=== PATIENT | female | born 1970 | race Caucasian/White ===

== ENCOUNTER → 2017-01-29 | Outpatient (POV) | payer MEDICARE, MEDICAID, SELFPAY | PROVIDERS: Visit Provider Internal Medicine | DX: Y99.9 Unspecified external cause status (principal) | CPT/HCPCS: 93005 ==

== ENCOUNTER → 2017-12-09 08:35 | Outpatient (CLI) | payer MEDICARE, MEDICAID, SELFPAY | PROVIDERS: PCP Emergency Medicine; Visit Provider Emergency Medicine | DX: Z12.31 Encounter for screening mammogram for malignant neoplasm of breast (principal) ==

== ENCOUNTER → 2018-09-09 10:25 | Outpatient (POV) | payer MEDICARE, MEDICAID, SELFPAY ==
[2018-09-09 10:32] VITALS: BP 125/80; PULSE 80; RESP 20; O2SAT 98
--- NOTE | 2018-09-09 13:07 | HMH.PMCON ---
Assessment and Plan (1) Chronic pain syndrome Current visit: Yes Status: Chronic Category: Medical Code(s): G89.4 - Chronic pain syndrome (2) Contracture of muscle, unspecified site Current visit: No Status: Chronic Qualifiers: Muscle contracture area: multiple sites Qualified Code(s): M62.49 - Contracture of muscle, multiple sites Category: Medical Code(s): M62.40 - Contracture of muscle, unspecified site - Assessment and plan all Dx Assessment and Plan for all problems:: After discussing this case with Dr. Roldan he and I both agreed that patient should be tried potentially on extended release morphine along with morphine immediate release for breakthrough pain. Patient may want to be started on a morphine extended release dose of 15 mg in the morning and 15 mg at night while discontinuing the fentanyl patch and hydrocodone and then utilizing morphine 10 mg immediate release up to 3 times a day. I will see the patient back in 1 month and reassess her symptoms at that time. This note was dictated using voice recognition software and may contain errors or omissions HPI - Data of Consult Consult date: 09/09/18 Requesting Physician: Brit Mahmood APRN Primary Care Provider: Rafael Goldberg MD Family Provider: Hitesh Andino APRN - Consult Narrative Reason for consult: Overall generalized pain History of present illness: Ms. Lo is a 48 year old female who presents today for consultation in regards to her overall generalized pain. Patient has a history of moyamoya disorder along with MS. Patient is wheelchair-bound. She has difficulty with transfers referring on along with doing any functional activity. She is currently on fentanyl 25 mcg/h patch every 72 hours and [place] 5. Patient states that it does not help control her pain. Rating her pain today a 10 out of 10. CC: Brit Mahmood APRN [facility] History I have reviewed the patient's past medical history: Yes Medical History: Reports:: Hyperlipidemia, Hypertension Other Medical History: Reports: Arthritis Other Surgeries: Yes: Hysterectomy-Total - *Social History Smoking Status: Unknown if ever smoked Alcohol Intake: never Occupational Status: disabled Housing: detention - Psychiatric History Expresses thoughts of harming self/others: None Suicide Plan Description: No Plan *Family Hx:: Unable to obtain Review of Systems - Review of Systems ROS General: no recent weight change, no fever, difficulty sleeping Respiratory: no cough, no shortness of air Cardiovascular/Peripheral Vascular: No chest pain, No palpitations, no edema, no shortness of breath. Musculoskeletal: Overall pain, joint pain Psychiatric: Frustrated Neurological: Weakness in all 4 extremities, unable to ambulate Meds Home Medications Medication Instructions Recorded Confirmed Type acetaminophen 500 mg capsule 500 mg PO Q6H PRN 11/20/17 History ascorbic acid (vitamin C) 1,000 mg 2 g PO DAILY tab 11/20/17 History tablet aspirin 81 mg tablet,delayed 81 mg PO DAILY tab 11/20/17 History release atorvastatin 20 mg tablet 20 mg PO QHS tab 11/20/17 History baclofen 10 mg tablet 10 mg NG-TUBE QID 11/20/17 History carvedilol 12.5 mg tablet 12.5 mg PO BID 11/20/17 History citalopram 10 mg tablet 10 mg PO BID tab 11/20/17 History conjugated estrogens 0.625 mg 0.625 mg PO DAILY tab 11/20/17 History tablet diphenhydramine 25 mg capsule 50 mg PO Q6H PRN cap 11/20/17 History docusate sodium 250 mg capsule 250 mg PO BID cap 11/20/17 History fentanyl 25 mcg/hr transdermal 1 patch TRANSDERMA Q72H 11/20/17 History patch fluticasone 50 mcg/actuation nasal 2 spray INTRANASAL QHS g 11/20/17 History spray,suspension furosemide 40 mg tablet 40 mg PO BID tab 11/20/17 History gabapentin 600 mg tablet 1,200 mg PO TID tab 11/20/17 History hydrocodone 5 mg-acetaminophen 325 1 tab PO Q8H tab 11/20/17 History mg tablet
--- NOTE | 2018-09-09 13:11 | P.CONS_ITS ---
Assessment and Plan (1) Chronic pain syndrome Current visit: Yes Status: Chronic Category: Medical Code(s): G89.4 - Chronic pain syndrome (2) Contracture of muscle, unspecified site Current visit: No Status: Chronic Qualifiers: Muscle contracture area: multiple sites Qualified Code(s): M62.49 - Contracture of muscle, multiple sites Category: Medical Code(s): M62.40 - Contracture of muscle, unspecified site - Assessment and plan all Dx Assessment and Plan for all problems:: After discussing this case with Dr. Roldan he and I both agreed that patient should be tried potentially on extended release morphine along with morphine immediate release for breakthrough pain. Patient may want to be started on a morphine extended release dose of 15 mg in the morning and 15 mg at night while discontinuing the fentanyl patch and hydrocodone and then utilizing morphine 10 mg immediate release up to 3 times a day. I will see the patient back in 1 month and reassess her symptoms at that time. This note was dictated using voice recognition software and may contain errors or omissions HPI - Data of Consult Consult date: 09/09/18 Requesting Physician: Brit Mahmood APRN Primary Care Provider: Rafael Goldberg MD Family Provider: Hitesh Andino APRN - Consult Narrative Reason for consult: Overall generalized pain History of present illness: Ms. Lo is a 48 year old female who presents today for consultation in regards to her overall generalized pain. Patient has a history of moyamoya disorder along with MS. Patient is wheelchair-bound. She has difficulty with transfers referring on along with doing any functional activity. She is currently on fentanyl 25 mcg/h patch every 72 hours and [place] 5. Patient states that it does not help control her pain. Rating her pain today a 10 out of 10. CC: Brit Mahmood APRN [facility] History I have reviewed the patient's past medical history: Yes Medical History: Reports:: Hyperlipidemia, Hypertension Other Medical History: Reports: Arthritis Other Surgeries: Yes: Hysterectomy-Total - *Social History Smoking Status: Unknown if ever smoked Alcohol Intake: never Occupational Status: disabled Housing: [facility] - Psychiatric History Expresses thoughts of harming self/others: None Suicide Plan Description: No Plan *Family Hx:: Unable to obtain Review of Systems - Review of Systems ROS General: no recent weight change, no fever, difficulty sleeping Respiratory: no cough, no shortness of air Cardiovascular/Peripheral Vascular: No chest pain, No palpitations, no edema, no shortness of breath. Musculoskeletal: Overall pain, joint pain Psychiatric: Frustrated Neurological: Weakness in all 4 extremities, unable to ambulate Meds Home Medications Medication Instructions Recorded Confirmed Type acetaminophen 500 mg capsule 500 mg PO Q6H PRN 11/20/17 History ascorbic acid (vitamin C) 1,000 mg 2 g PO DAILY tab 11/20/17 History tablet aspirin 81 mg tablet,delayed 81 mg PO DAILY tab 11/20/17 History release atorvastatin 20 mg tablet 20 mg PO QHS tab 11/20/17 History baclofen 10 mg tablet 10 mg NG-TUBE QID 11/20/17 History carvedilol 12.5 mg tablet 12.5 mg PO BID 11/20/17 History citalopram 10 mg tablet 10 mg PO BID tab 11/20/17 History conjugated estrogens 0.625 mg 0.625 mg PO DAILY tab 11/20/17 History tablet
== END ==
PROVIDERS: PCP Emergency Medicine; Visit Provider Clinical Nurse Specialist Family Health
DX: G89.4 Chronic pain syndrome (principal); M62.49 Contracture of muscle, multiple sites
CPT/HCPCS: 99202

== ENCOUNTER → 2018-10-06 08:54 | Outpatient (POV) | payer MEDICARE, MEDICAID, SELFPAY ==
[2018-10-06 09:06] VITALS: BP 116/88; PULSE 70; RESP 18; O2SAT 98; BMI 24.4
--- NOTE | 2018-10-06 09:25 | HMH.PAINSOAP ---
[facility] Pain Management SOAP Note Subjective:: Patient is a pleasant 48-year-old female who presents today for follow-up. Patient is still on her fentanyl 25 mcg patch every 72 hours and [place] 5 mg. Patient has a history of moyamoya disorder along with MS. Patient is wheelchair-bound she rates her pain today a 10 out of 10. ROS General: Drowsy Respiratory: no cough, no shortness of air Cardiovascular/Peripheral Vascular: No chest pain, No palpitations, no edema, no shortness of breath. Musculoskeletal: Generalized pain Psychiatric: Frustrated Neurological: Weakness in all 4 extremities, unable to ambulate Objective:: Physical Exam General: Alert and oriented x3, no acute distress, pleasant and cooperative, [on room air] Lungs: Resps E/U Musculoskeletal: Flexion and extension and range of motion extremely limited unable to walk utilizes wheelchair for mobility Neurological: Speech mumbled Assessment:: Chronic pain syndrome, contracture of muscles Plan:: After discussing this case with Dr. Roldan and Saad Andino APRN. We all discussed and agreed on trying the patient on morphine extended release 15 mg in the morning and 15 mg at night while discontinuing the fentanyl patch and hydrocodone and then utilizing morphine 10 mg immediate release up to 3 times a day as needed I will see the patient back in 1 month and reassess her symptoms at that time. This note was dictated using voice recognition software and may contain errors or omissions
--- NOTE | 2018-10-06 09:28 | P.CONS_ITS ---
[facility] Pain Management SOAP Note Subjective:: Patient is a pleasant 48-year-old female who presents today for follow-up. Patient is still on her fentanyl 25 mcg patch every 72 hours and [place] 5 mg. Patient has a history of moyamoya disorder along with MS. Patient is wheelchair-bound she rates her pain today a 10 out of 10. ROS General: Drowsy Respiratory: no cough, no shortness of air Cardiovascular/Peripheral Vascular: No chest pain, No palpitations, no edema, no shortness of breath. Musculoskeletal: Generalized pain Psychiatric: Frustrated Neurological: Weakness in all 4 extremities, unable to ambulate Objective:: Physical Exam General: Alert and oriented x3, no acute distress, pleasant and cooperative, [on room air] Lungs: Resps E/U Musculoskeletal: Flexion and extension and range of motion extremely limited unable to walk utilizes wheelchair for mobility Neurological: Speech mumbled Assessment:: Chronic pain syndrome, contracture of muscles Plan:: After discussing this case with Dr. Roldan and Saad Andino APRN. We all discussed and agreed on trying the patient on morphine extended release 15 mg in the morning and 15 mg at night while discontinuing the fentanyl patch and hydrocodone and then utilizing morphine 10 mg immediate release up to 3 times a day as needed I will see the patient back in 1 month and reassess her symptoms at that time. This note was dictated using voice recognition software and may contain errors or omissions
== END ==
PROVIDERS: PCP Emergency Medicine; Visit Provider Clinical Nurse Specialist Family Health
DX: G89.4 Chronic pain syndrome (principal); M62.40 Contracture of muscle, unspecified site
CPT/HCPCS: 99213

== ENCOUNTER → 2018-11-03 08:47 | Outpatient (POV) | payer MEDICARE, MEDICAID, SELFPAY ==
[2018-11-03 09:11] VITALS: BP 114/69; PULSE 65; RESP 18; O2SAT 98; BMI 20.1
--- NOTE | 2018-11-03 09:27 | HMH.PAINSOAP ---
[facility] Pain Management SOAP Note Subjective:: Patient is a pleasant 48-year-old white female who presents today for follow-up. Patient has been on her morphine extended release 15 mg 1 p.o. twice daily and morphine immediate release 10 mg 1 p.o. 3 times daily as needed. Patient states that her pain an 8 out of 10. She states that it hurts all of the time all over. Patient does seem more alert today. ROS General: no recent weight change, no fever, no sleep disturbances Respiratory: no cough, no shortness of air Cardiovascular/Peripheral Vascular: No chest pain, No palpitations, no edema, no shortness of breath. Musculoskeletal: Generalized pain Psychiatric: normal mood/ affect Neurological: Weakness in all 4 extremities, unable to ambulate Objective:: Physical Exam General: Alert and oriented x3, no acute distress, pleasant and cooperative, [on room air] Lungs: Resps E/U Eyes: PERRL Musculoskeletal: Flexion and extension and range of motion extremely limited unable to walk, utilizes wheelchair for mobility Neurological: speech mumbled Assessment:: Chronic pain syndrome, contracture of muscles Plan:: My recommendation would be to try her on morphine extended release 15 mg in morning and 30 mg at nighttime and also making her immediate release a scheduled medication. I will follow-up the patient in 8 weeks and reassess her at that time. Dr. Roldan has reviewed this note and agrees with this plan of care. This note was dictated using voice recognition software and may contain errors or omissions
== END ==
PROVIDERS: PCP Emergency Medicine; Visit Provider Clinical Nurse Specialist Family Health
DX: G89.4 Chronic pain syndrome; M62.40 Contracture of muscle, unspecified site
CPT/HCPCS: 99213

== ENCOUNTER → 2018-12-29 08:55 | Outpatient (POV) | payer MEDICARE, MEDICAID, SELFPAY ==
[2018-12-29 09:08] VITALS: BP 135/84; PULSE 65; RESP 18; O2SAT 98; BMI 19.5
--- NOTE | 2018-12-29 09:26 | HMH.PAINSOAP ---
[facility] Pain Management SOAP Note Subjective:: Patient is a pleasant 48-year-old white female who presents today for follow-up. She has been on morphine extended release 15 mg 1 p.o. in the morning and 30 mg extended release in the evening. She is also been on morphine 10 mg 3 times daily. Patient rates her pain a 10 out of 10 today. However she states that it has been better since she started this new regimen. Patient is completing physical therapy daily. ROS General: no recent weight change, no fever, unable to sleep Respiratory: no cough, no shortness of air, no recurring pulmonary infections Cardiovascular/Peripheral Vascular: No chest pain, No palpitations, no edema, no shortness of breath. Gastrointestinal: no new incontinence Genitourinary: no new incontinence Musculoskeletal: Generalized pain Psychiatric: normal mood/ affect, Neurological: Weakness in all 4 extremities, unable to ambulate Objective:: Physical Exam General: Alert and oriented x3, no acute distress, pleasant and cooperative, [on room air] Lungs: Resps E/U, Symmetrical chest expansion, Musculoskeletal: Flexion and extension of thoracic and lumbar spine somewhat guarded secondary to pain, strength in upper and lower extremities [3/5], unable to ambulate Neurological: speech mumbled Assessment:: Chronic pain syndrome, contracture of muscles Plan:: My recommendation would be to increase the morphine extended release 30 mg twice daily and morphine 10 mg 1 p.o. 3 times daily. If the patient is not getting any more relief from this she may be a candidate for intrathecal therapy. I will follow-up with her in 2 months reassess her symptoms at that time. Dr. Roldan has reviewed this note and agrees with this plan of care. This note was dictated using voice recognition software and may contain errors or omissions
== END ==
PROVIDERS: PCP Emergency Medicine; Visit Provider Clinical Nurse Specialist Family Health
DX: G89.4 Chronic pain syndrome (principal); M62.40 Contracture of muscle, unspecified site
CPT/HCPCS: 99212

== ENCOUNTER → 2019-03-02 10:10 | Outpatient (POV) | payer MEDICARE, MEDICAID, SELFPAY ==
[2019-03-02 10:21] VITALS: BP 129/90; PULSE 64; RESP 18; O2SAT 98; BMI 18.8
--- NOTE | 2019-03-02 10:39 | HMH.PAINSOAP ---
[facility] Pain Management SOAP Note Subjective:: Patient is a 48-year-old white female who presents today for follow-up. She does ask for recommendations on her oral medication regimen. Is a [facility] resident, with a past medical history of sclerosis and moyamoya syndrome. The patient has been taking morphine extended release 30 mg 1 p.o. in the morning and 30 mg extended release in the evening. She has also been taking morphine 15 mg p.o. 3 times daily. She does report that this has not been working, and rates her pain a 10 out of 10 today. The patient says that the medication is not relieved the pain even for short period. She does have a physical therapy regimen daily. ROS General: no recent weight change, no fever, no sleep disturbances Respiratory: no cough, no shortness of air, no recurring pulmonary infections Cardiovascular/Peripheral Vascular: No chest pain, No palpitations, no edema, no shortness of breath. Gastrointestinal: no incontinence, normal bowel movements reported Genitourinary: no incontinence Musculoskeletal: generalized pain Psychiatric: normal mood/ affect, [denies depression], [denies anxiety] Neurological: [denies weakness in extremities], [denies balance issues] Objective:: Physical Exam General: Alert and oriented x3, no acute distress, pleasant and cooperative, [on room air] Lungs: Resps E/U, Symmetrical chest expansion, Eyes: PERRL Musculoskeletal: Flexion and extension of lumbar spine somewhat guarded secondary to pain, deep tendon reflexes normal, strength in upper extremities [5/5], unable to ambulate Neurological: speech clear, 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 I would also recommend that she stop the morphine extended release 30 mg p.o. twice daily and morphine immediate release 15 mg 1 p.o. 3 times daily today. The patient may benefit from Dilaudid 8 mg p.o. 4 times daily. We will see the patient back the office in 1 month and perform the genetic testing at that time. She has been instructed to call the office if she has any issues prior to that time. She has also been instructed to have her primary care team call the office if they have any questions or concerns. Dr. Roldan has reviewed this note and agrees with this plan of care. This note was dictated using voice recognition software and may contain errors or omissions
--- NOTE | 2019-03-02 10:42 | P.CONS_ITS ---
[facility] Pain Management SOAP Note Subjective:: Patient is a 48-year-old white female who presents today for follow-up. She does ask for recommendations on her oral medication regimen. Is a residential resident, with a past medical history of sclerosis and moyamoya syndrome. The patient has been taking morphine extended release 30 mg 1 p.o. in the morning and 30 mg extended release in the evening. She has also been taking morphine 15 mg p.o. 3 times daily. She does report that this has not been working, and rates her pain a 10 out of 10 today. The patient says that the medication is not relieved the pain even for short period. She does have a physical therapy regimen daily. ROS General: no recent weight change, no fever, no sleep disturbances Respiratory: no cough, no shortness of air, no recurring pulmonary infections Cardiovascular/Peripheral Vascular: No chest pain, No palpitations, no edema, no shortness of breath. Gastrointestinal: no incontinence, normal bowel movements reported Genitourinary: no incontinence Musculoskeletal: generalized pain Psychiatric: normal mood/ affect, [denies depression], [denies anxiety] Neurological: [denies weakness in extremities], [denies balance issues] Objective:: Physical Exam General: Alert and oriented x3, no acute distress, pleasant and cooperative, [on room air] Lungs: Resps E/U, Symmetrical chest expansion, Eyes: PERRL Musculoskeletal: Flexion and extension of lumbar spine somewhat guarded secondary to pain, deep tendon reflexes normal, strength in upper extremities [5/5], unable to ambulate Neurological: speech clear, statistical developer 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 I would also recommend that she stop the morphine extended release 30 mg p.o. twice daily and morphine immediate release 15 mg 1 p.o. 3 times daily today. The patient may benefit from Dilaudid 8 mg p.o. 4 times daily. We will see the patient back the office in 1 month and perform the genetic testing at that time. She has been instructed to call the office if she has any issues prior to that time. She has also been instructed to have her primary care team call the office if they have any questions or concerns. Dr. Roldan has reviewed this note and agrees with this plan of care. This note was dictated using voice recognition software and may contain errors or omissions
== END ==
PROVIDERS: PCP Emergency Medicine; Visit Provider Clinical Nurse Specialist Family Health
DX: G89.4 Chronic pain syndrome (principal); M62.40 Contracture of muscle, unspecified site
CPT/HCPCS: 99212

== ENCOUNTER → 2019-03-31 08:44 | Outpatient (POV) | payer MEDICARE, MEDICAID, SELFPAY ==
[2019-03-31 09:03] VITALS: BP 124/82; PULSE 61; RESP 18; O2SAT 98; BMI 20.1
--- NOTE | 2019-03-31 09:14 | P.CONS_ITS ---
[facility] Pain Management SOAP Note Subjective:: Patient is a pleasant 48-year-old white female who presents today for follow-up. She is a patient for which we provide recommendations on her oral medication regimen. She has a past medical history of sclerosis and moyamoya syndrome. At her last visit, the patient reported that her pain was a 10 out of 10 and we did make recommendations at that time for change in her medication regimen. Today, she rates her pain a 10 out of 10. Her medications were not changed after last visit. Her PCP is awaiting genetic testing results prior to making any more changes to her oral medication regimen. The patient is currently on morphine extended release 30 mg 1 p.o. in the morning and 30 mg extended release 1 p.o. in the evening. She is also been taking morphine 50 mg 1 p.o. 3 times daily. Review of Systems General: No recent weight changes, no fever, no sleep disturbances Respiratory: No cough, no shortness of air, no recurring pulmonary infections Cardiovascular/peripheral vascular: No chest pain, no palpitations, no edema, no shortness of breath Gastrointestinal: No new onset incontinence, normal bowel movements reported Genitourinary: No new onset incontinence Musculoskeletal: Back pain Psychiatric: Normal mood/affect Neurological: [Denies weakness in extremities], [denies balance issues] Objective:: Physical exam General: Alert and oriented x3, no acute distress, pleasant and cooperative, [on room air] Lungs: Respirations even and unlabored, symmetrical chest expansion Eyes: PERRL Musculoskeletal: Flexion and extension of lumbar spine somewhat guarded secondary to pain, deep tendon reflexes normal, strength in upper and lower extremities [5/5], ataxic gait noted Neurological: Speech clear, 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 Since no changes will be made until testing is complete, we will see the patient back once we receive the results of the testing. We are currently working on getting genetic testing for the patient. We will call the nursing facility when the patient is able to receive the test. She has been instructed to call the office if she has any concerns prior to her next appointment. Dr. Roldan has reviewed this note and agrees with this plan of care. This note was dictated using voice recognition software and make contain errors or omissions.
--- NOTE | 2019-04-29 10:30 | PC.NURSE ---
[facility] CALLED TO CANCEL ALL OF PATIENT'S FUTURE APPOINTMENTS
== END ==
PROVIDERS: PCP Emergency Medicine; Visit Provider Clinical Nurse Specialist Family Health
DX: G89.4 Chronic pain syndrome (principal); M62.40 Contracture of muscle, unspecified site
CPT/HCPCS: 99212

== ENCOUNTER → 2019-07-18 06:43 | Outpatient (REF) | payer OTHER, MEDICARE, MEDICAID, SELFPAY | LOC: LAB 06:43 | PROVIDERS: Visit Provider Emergency Medicine | DX: L89.613 Pressure ulcer of right heel, stage 3 (principal) | CPT/HCPCS: 87070; 87077; 87186; 87205 ==

== ENCOUNTER 2020-09-27 11:17 | Emergency (ER) | payer MEDICARE, MEDICAID, SELFPAY ==
[2020-09-27 11:18] VITALS: BP 200/104; PULSE 70; RESP 16; TEMP 36.6; O2SAT 98; BMI 18.0
[2020-09-27 11:41] VITALS: BP 164/98; PULSE 61; RESP 18; O2SAT 97
[2020-09-27 11:59] LABS: Microscopic, Urine URINE MICROSCOPIC (MICROSCOPIC)
[2020-09-27 12:02] LABS: Appearance,Urine Clear (Clear); Color,Urine Yellow (Yellow)
[2020-09-27 12:03] LABS: Bilirubin,Urine Negative (Negative); Blood, Urine Negative (Negative); Glucose,Urine (UA) Negative (Negative); Ketones,Urine Negative (Negative); Leukocyte Esterase,Urine Negative (Negative); Nitrate,Urine Negative (Negative); Protein,Urine Negative (Negative); Urobilinogen,Urine 0.2 EU/dl (0.2)
--- NOTE | 2020-09-27 12:09 | HMH.EDGENADL ---
ED Disposition Clinical Impression: Altered mental status Qualifiers: Altered mental status type: transient alteration of awareness Qualified Code(s): R40.4 - Transient alteration of awareness Disposition: Home, Self-Care Condition on Discharge: Good Additional Instructions: Follow-up with Dr. Goldberg if symptoms recur Referrals: Rafael Goldberg MD [Primary Care Provider] - - Critical Care Critical Care Time: No Attestation: On 09/27/20, the high probability of a clinically significant, sudden or life threatening deterioration of the following system(s) required my full and direct attention, intervention and personal management. The time I documented below is in addition to time spent performing reported procedures but includes the following listed in this critical care notation. Medical Decision Making - Medical Records Medical records reviewed: Yes: I reviewed the patient's medical records. MR Comment: Lab results from [facility] obtained and reviewed, unremarkable - Marcellus Inquiry Pt receiving controlled substance: No Vital Signs: 09/27/20 11:18 09/27/20 11:41 09/27/20 12:18 Temperature 98 F 98.3 F Temperature Source Axillary Oral Pulse Rate [Radial] 70 61 Respiratory Rate 16 18 Blood Pressure [Right Arm] 200/104 H 164/98 H Blood Pressure Mean [Right Arm] 136 120 Blood Pressure Source [Right Arm] Automatic Cuff Blood Pressure Position [Right Arm] Sitting Supine 02 Sat by Pulse Oximetry 98 97 Oxygen Delivery Method Room Air 09/27/20 13:56 09/27/20 13:57 Temperature Temperature Source Pulse Rate [Radial] 65 Respiratory Rate 18 Blood Pressure [Right Arm] 149/102 H Blood Pressure Mean [Right Arm] 117 Blood Pressure Source [Right Arm] Automatic Cuff Blood Pressure Position [Right Arm] Supine 02 Sat by Pulse Oximetry 95 Oxygen Delivery Method Room Air Room Air - Lab Data Lab Results 09/27/20 11:55: Urine Color Yellow, Urine Appearance Clear, Urine pH 6.0, Ur Specific [place] 1.020, Urine Protein Negative, Urine Glucose (UA) Negative, Urine Ketones Negative, Urine Blood Negative, Urine Nitrate Negative, Urine Bilirubin Negative, Urine Urobilinogen 0.2, Ur Leukocyte Esterase Negative, Urine WBC 3-5, Ur Squamous Epith Cells 3-5 09/27/20 13:05: WBC 5.0, RBC 4.73, Hgb 14.9, Hct 45.5, MCV 96.2, MCH 31.5 H, MCHC 32.8, RDW 13.5, Plt Count 176, MPV 9.7, Neut % (Auto) 52.6, Lymph % (Auto) 37.8, [place] % (Auto) 6.2, Eos % (Auto) 2.7, Baso % (Auto) 0.8, Neut # (Auto) 2.6, Lymph # (Auto) 1.9, [place] # (Auto) 0.3, Eos # (Auto) 0.1, Baso # (Auto) 0.0 09/27/20 13:05: Sodium 143, Potassium 4.3, Chloride 105, Carbon Dioxide 34 H, Anion Gap 8.3, BUN 11, Creatinine 0.80, Estimated Creat Clear 60, Estimated GFR 75, Est GFR ( Amer) 91, Glucose 71 L, Calcium 9.8, Total Bilirubin 0.5, AST 30, ALT 17, Alkaline Phosphatase 80, Troponin I < 0.01, Total Protein 7.5, Albumin 4.3 09/27/20 13:05: Lactate 1.2 Result diagrams: 09/27/20 13:05 09/27/20 13:05 Orders (Tests/Meds): ORDERS Category Date Time Status XR chest portable Stat Exams 09/27/20 12:17 Taken CMP [Comprehensive Metabolic Panel] Stat Lab 09/27/20 13:05 Results Troponin I Q3H Lab 09/27/20 15:30 Ordered Troponin I Q3H Lab 09/27/20 18:30 Ordered Troponin I Stat Lab 09/27/20 13:05 Results Blood Culture Stat Micro 09/27/20 12:18 Received - Radiology Data #1 Image(s): Chest Image Reviewed: Yes I reviewed the patient's radiology image Atelectasis left base - ECG Data Tracing #1 EKG interpreted by Rudy Henry MD: Rhythm: sinus Rate: 61 [place]: normal Ectopy: none Conduction: normal ST Segment Changes: none T Wave Changes: none Q Waves: none Early R wave progression No evidence of acute ischemia or injury Baseline artifact present, but I consider the EKG adequate for accurate interpretation. No prior EKGs available for comparison. Medical Decision Narrative: Discussed borderline glucose w
--- NOTE | 2020-09-27 12:17 | XR_ITS ---
PROCEDURE: XR CHEST PORTABLE Referring Doctor: Rudy Henry Patient Age:50Y CLINICAL HISTORY: h/o low SaO2 Dyspnea short of breath severely contracted with multiple form is unable to move and COMPARISON: CR CXR CHEST(2 VIEWS-NOT PORTABLE) from 01/15/2017 FINDINGS: Difficult to position patient but because of this the study is limited however the right lung appears well expanded and clear with nothing acute At the left chest there is linear scarring and atelectasis at the left base with slight elevation left hemidiaphragm similar to 2017 CXR. Generous gas is seen within bowel loops beneath the diaphragm particularly noting generous gas throughout the colon and splenic flexure but this may contribute to elevation left hemidiaphragm The heart is normal size with christi and mediastinal structures unremarkable. On final review I would note some accentuation markings left infrahilar region of most likely reflecting some atelectasis and scarring. However difficult to exclude early infiltrate totally. May require follow-up imaging with CT or follow-up CXR if symptoms progress IMPRESSION: Overall fairly stable appearing chest with nothing definitely acute We again see linear scarring and atelectasis at left base similar to 2017. On final review note some slight crowding markings left infrahilar region which most likely reflects atelectasis and technique but difficult to totally exclude early infiltrate. If symptoms progress consider follow-up Dictated by: Agustin Valdivia MD 09/27/2020 17:13 Agustin Valdivia MD in [place] 09/27/2020 17:13
[2020-09-27 12:18] VITALS: TEMP 36.8
--- NOTE | 2020-09-27 12:23 | ECG_ITS ---
APPROVED REPORT Exam: Resting ECG HR:61 bpm ECG Measurements Heart Rate 61 AXES CO 134 P 71 QRSd 70 QRS 31 QT 434 T 10 QTc 436 Conclusion Undetermined rhythm Nonspecific ST and T wave abnormality Abnormal ECG Electronically signed by : Pio Carroll, 09/27/2020 19:52:00
[2020-09-27 13:16] LABS: Basophils % 0.8 % (0.1-2.0); Eosinophils # 0.1 K/mm3 (0.0-0.4); Eosinophils % 2.7 % (0.1-12.0); Hematocrit 45.5 % (37.0-47.0); Hemoglobin 14.9 g/dL (12.2-16.2); Lymphocytes # 1.9 K/mm3 (0.7-4.5); Lymphocytes % 37.8 % (10-50); Mean Corpuscular HGB Conc 32.8 g/dL (31.8-35.4); Mean Corpuscular Hemoglobin 31.5 pg (27.0-31.2); Mean Corpuscular Volume 96.2 fl (81-99); Mean Platelet Volume 9.7 fl (7.4-10.4); Monocytes # 0.3 K/mm3 (0.1-1.0); Monocytes % 6.2 % (1.7-9.3); Neutrophils # 2.6 K/mm3 (1.8-7.8); Neutrophils % 52.6 % (37.0-80.0); Platelet Count 176 K/mm3 (142-424); Red Blood Count 4.73 M/mm3 (4.20-5.40); Red Cell Distribution Width 13.5 % (11.5-17.5)
[2020-09-27 13:26] LABS: Chloride 105 mmol/L (98-107)
[2020-09-27 13:27] LABS: Potassium 4.3 mmoL/L (3.5-5.1); Sodium 143 mmol/L (136-145)
[2020-09-27 13:29] LABS: Alanine Aminotransferase 17 U/L (12-78); Aspartate Amino Transferase 30 U/L (14-36); Blood Urea Nitrogen 11 mg/dl (7-17); Creatinine Clearance Estimated 60 mL/min (50-200); Estimated Glomerular Filt Rate 75 ml/min (>60); GFR (African American) 91 ML/MIN (>60)
[2020-09-27 13:30] LABS: Alkaline Phosphatase 80 U/L (38-126); Anion Gap 8.3 mEq/L (5-15); Bilirubin,Total 0.5 mg/dl (0.2-1.3); Calcium 9.8 mg/dl (8.4-10.2); Carbon Dioxide 34 mmol/L (22.0-30.0); Glucose 71 mg/dl (74-100); Total Protein,Serum 7.5 g/dl (6.3-8.2)
[2020-09-27 13:31] LABS: Lactic Acid 1.2 mmol/L (0.7-2.1)
[2020-09-27 13:46] LABS: Troponin I < 0.01 ng/ml (0.00-0.034)
[2020-09-27 13:56] VITALS: BP 149/102; PULSE 65; RESP 18; O2SAT 95
[2020-09-27 14:01] VITALS: BP 149/99; PULSE 73; RESP 16; TEMP 36.8; O2SAT 98
--- NOTE | 2020-09-27 14:01 | PC.NURSE ---
[facility] notified of patient discharge and need of transport back to skilled nursing.
--- NOTE | 2020-09-27 14:23 | PC.NURSE ---
Still waiting on [facility] for transport
--- NOTE | 2020-09-27 14:50 | PC.NURSE ---
[facility] here to get patient
[2020-09-27 15:03] LABS: Albumin Level 4.3 g/dl (3.5-5.0); Albumin/Globulin Ratio 1.3 (1.1-1.8); Globulin 3.2 g/dL (1.3-3.2)
== END 2020-09-27 14:50 | disposition home or self-care (01) ==
PROVIDERS: Emergency Provider Emergency Medicine; PCP Emergency Medicine
DX: R41.82 Altered mental status, unspecified (principal); R40.4 Transient alteration of awareness; M62.81 Muscle weakness (generalized); G35 Multiple sclerosis; L89.613 Pressure ulcer of right heel, stage 3; I10 Essential (primary) hypertension; Z90.710 Acquired absence of both cervix and uterus; Z79.899 Other long term (current) drug therapy
CPT/HCPCS: 36415; 71045; 80053; 81001; 83605; 84484; 85025; 87040; 93005; 99284

== ENCOUNTER 2020-11-10 20:31 | Emergency (ER) | payer MEDICARE, MEDICAID, SELFPAY ==
--- NOTE | 2020-11-10 | XR_ITS ---
PROCEDURE: XR PELVIS 1-2V CLINICAL INDICATION: Posttraumatic pain COMPARISON: No exams were available for comparison TECHNIQUE: XR Pelvis AP View FINDINGS: No fracture or dislocation is evident. No significant degenerative change. No lytic or blastic change. IMPRESSION: No acute findings. Dictated by: Nicholas Taylor MD 11/11/2020 05:23 Nicholas Taylor MD in [facility] 11/11/2020 05:23
[2020-11-10 20:32] VITALS: BMI 18.8
--- NOTE | 2020-11-10 20:33 | XR_ITS ---
PROCEDURE: XR KNEE LT 3V CLINICAL INDICATION: fall Pain following injury COMPARISON: No exams were available for comparison FINDINGS: Limited positioning due to patient's condition. No acute fracture or dislocation. Other findings:None. IMPRESSION: No acute findings. Dictated by: Nicholas Taylor MD 11/11/2020 05:16 Nicholas Taylor MD in [facility] 11/11/2020 05:16
--- NOTE | 2020-11-10 20:33 | XR_ITS ---
PROCEDURE: XR FOREARM RT 2V CLINICAL INDICATION: fall Posttraumatic pain COMPARISON: No exams were available for comparison FINDINGS: No fracture or dislocation. No lytic or blastic change. There is normal mineralization. The joint spaces are well-preserved. No significant degenerative/arthritic changes. No erosive changes evident. Other findings:None. IMPRESSION: No acute findings. Dictated by: Nicholas Taylor MD 11/11/2020 05:22 Nicholas Taylor MD in [facility] 11/11/2020 05:22
--- NOTE | 2020-11-10 20:33 | CT_ITS ---
PROCEDURE: CT CERVICAL SPINE WO CON CLINICAL INDICATION: fall Neck injury with pain, contusion/abrasion or hematoma, cervical sprain/strain the COMPARISON: No exams were available for comparison TECHNIQUE: Axial images obtained with sagittal and coronal reformats. All CT scans at the facility use one or more dose reduction, viz: automated exposure control, ma/kV adjustment per patient size (including targeted exams where dose is matched to indication, i.e. head), or iterative reconstruction technique. Axial spiral CT scanning performed of the cervical spine beginning at the base of the skull and continuing to the upper T-spine. 3-D multiplanar reconstruction with 3-D manipulation of volumetric data set in image rendering was completed by the radiologist and/or technologist with the supervision of the radiologist on independent workstation. FINDINGS: The exam is very limited in that the patient is in position and to be scanned on side.. There is reversal of the cervical lordosis. No malalignment. No acute fracture or dislocation. Prominent anterior osteophytes at C2, C3, C4, C5, and C6 there is degenerative disc disease at C3-C4 C4-C5 C5-C6 and C6-C7. There is partial fusion of the osteophytes anteriorly and on the right at C3-C4 and C5. There is mild cervical curvature convex left. IMPRESSION: 1. No acute fracture. 2. Reversal of lordosis with multilevel cervical spondylosis. Dictated by: Nicholas Taylor MD 11/11/2020 06:25 Nicholas Taylor MD in [facility] 11/11/2020 06:26
--- NOTE | 2020-11-10 20:33 | XR_ITS ---
PROCEDURE: XR CHEST PORTABLE CLINICAL HISTORY: fall Pain following injury COMPARISON: CR CXR CHEST(2 VIEWS-NOT PORTABLE) from 01/15/2017 CR XR CHEST PORTABLE from 09/27/2020 FINDINGS: Limited secondary to positioning and radiographic technique. Unremarkable cardiovascular structures. Lungs are clear. No acute bony findings. There is gaseous distension of the bowel in the upper abdomen. IMPRESSION: As above, no acute finding Dictated by: Nicholas Taylor MD 11/11/2020 05:19 Nicholas Taylor MD in [facility] 11/11/2020 05:19
--- NOTE | 2020-11-10 20:33 | XR_ITS ---
PROCEDURE: XR SHOULDER RT MIN 2V CLINICAL INDICATION: fall Posttraumatic pain, fall with injury and pain COMPARISON: CR XR HUMERUS RT from 11/10/2020 CR XR ELBOW RT MIN 3V from 11/10/2020 FINDINGS: Somewhat limited due to positioning. No fracture or dislocation. No lytic or blastic change. There is normal mineralization. The joint spaces are well-preserved. No significant degenerative/arthritic changes. No erosive changes evident. Other findings:None. IMPRESSION: No acute findings. Dictated by: Nicholas Taylor MD 11/11/2020 05:22 Nicholas Taylor MD in [facility] 11/11/2020 05:22
--- NOTE | 2020-11-10 20:33 | CT_ITS ---
PROCEDURE: CT HEAD/BRAIN WO CON CLINICAL INDICATION: fall Laceration to top of head. Patient in position with extreme kyphosis Head injury with headache/pain, contusion, abrasion or hematoma COMPARISON: No exams were available for comparison TECHNIQUE: Axial images obtained. All CT scans at the facility use one or more dose reduction, viz: automated exposure control, ma/kV adjustment per patient size (including targeted exams where dose is matched to indication, i.e. head), or iterative reconstruction technique. FINDINGS: Study is limited technically due to patient's condition in position and contracted on her right side. The patient was scanned with her on her right side. No midline shift or mass effect. No acute intracranial hemorrhage. Encephalomalacia changes are present in the left sylvian region and in the temporal horn on the left and left frontal and parietal junction. IMPRESSION: Limited exam, no acute finding Dictated by: Nicholas Taylor MD 11/11/2020 06:20 Nicholas Taylor MD in [facility] 11/11/2020 06:20
[2020-11-10 20:35] VITALS: BP 99/69; PULSE 76; RESP 16; TEMP 37.1; O2SAT 97; BMI 16.9
--- NOTE | 2020-11-10 20:39 | XR_ITS ---
PROCEDURE: XR HUMERUS LT CLINICAL INDICATION: fall Posttraumatic pain COMPARISON: No exams were available for comparison FINDINGS: Limited due to positioning. Osteoarthritic changes are present at the glenohumeral joint. No fracture or dislocation. IMPRESSION: No acute findings. Dictated by: Nicholas Taylor MD 11/11/2020 05:13 Nicholas Taylor MD in [facility] 11/11/2020 05:13
--- NOTE | 2020-11-10 20:39 | XR_ITS ---
PROCEDURE: XR ELBOW LT MIN 3V CLINICAL INDICATION: fall Pain following injury COMPARISON: No exams were available for comparison FINDINGS: No fracture or dislocation. No lytic or blastic change. There is normal mineralization. The joint spaces are well-preserved. No significant degenerative/arthritic changes. No erosive changes evident. Other findings:None. IMPRESSION: No acute findings. Dictated by: Nicholas Taylor MD 11/11/2020 05:14 Nicholas Taylor MD in [facility] 11/11/2020 05:14
--- NOTE | 2020-11-10 20:39 | XR_ITS ---
PROCEDURE: XR SHOULDER LT MIN 2V CLINICAL INDICATION: fall pain following injury COMPARISON: No exams were available for comparison FINDINGS: Mild osteoarthritic changes of glenohumeral joint. No acute fracture or dislocation. IMPRESSION: No acute findings. Dictated by: Nicholas Taylor MD 11/11/2020 05:15 Nicholas Taylor MD in [facility] 11/11/2020 05:15
--- NOTE | 2020-11-10 20:57 | PC.NURSE ---
call placed to [facility], spoke with presley.
--- NOTE | 2020-11-10 21:00 | PC.NURSE ---
pt to rad
[2020-11-10 21:09] LABS: Chloride 100 mmol/L (98-107); Sodium 136 mmol/L (136-145)
[2020-11-10 21:11] LABS: Basophils # 0.1 K/mm3 (0-0.2); Basophils % 0.9 % (0.1-2.0); Blood Urea Nitrogen 15 mg/dl (7-17); Creatinine Clearance Estimated 47 mL/min (50-200); Eosinophils # 0.1 K/mm3 (0.0-0.4); Eosinophils % 1.6 % (0.1-12.0); Estimated Glomerular Filt Rate 66 ml/min (>60); GFR (African American) 80 ML/MIN (>60); Hematocrit 32.7 % (37.0-47.0); Hemoglobin 10.3 g/dL (12.2-16.2); Lymphocytes # 2.6 K/mm3 (0.7-4.5); Lymphocytes % 33.5 % (10-50); Mean Corpuscular HGB Conc 31.4 g/dL (31.8-35.4); Mean Corpuscular Hemoglobin 29.3 pg (27.0-31.2); Mean Corpuscular Volume 93.2 fl (81-99); Mean Platelet Volume 8.5 fl (7.4-10.4); Monocytes # 0.8 K/mm3 (0.1-1.0); Monocytes % 10.2 % (1.7-9.3); Neutrophils # 4.2 K/mm3 (1.8-7.8); Neutrophils % 53.8 % (37.0-80.0); Platelet Count 326 K/mm3 (142-424); Red Blood Count 3.51 M/mm3 (4.20-5.40); Red Cell Distribution Width 13.1 % (11.5-17.5); White Blood Count 7.8 K/mm3 (4.8-10.8)
[2020-11-10 21:12] LABS: Alanine Aminotransferase 21 U/L (12-78); Albumin Level 3.4 g/dl (3.5-5.0); Albumin/Globulin Ratio 1.1 (1.1-1.8); Alkaline Phosphatase 79 U/L (38-126); Aspartate Amino Transferase 21 U/L (14-36); Bilirubin,Total 0.3 mg/dl (0.2-1.3); Carbon Dioxide 32 mmol/L (22.0-30.0); Globulin 3.2 g/dL (1.3-3.2); Glucose 113 mg/dl (74-100); Total Protein,Serum 6.6 g/dl (6.3-8.2)
[2020-11-10 21:29] LABS: T4 (Thyroxine) 13.4 ug/dl (5.53-11.0)
--- NOTE | 2020-11-10 21:34 | PC.NURSE ---
pt remains in radiology
[2020-11-10 21:35] VITALS: BP 92/49; PULSE 70; RESP 16; O2SAT 97
[2020-11-10 21:43] LABS: Thyroid Stimulating Hormone 2.23 uIU/mL (0.465-4.68)
[2020-11-10 22:00] VITALS: BP 95/67; PULSE 72; RESP 17; O2SAT 98
--- NOTE | 2020-11-10 22:00 | PC.NURSE ---
pt returned from rad
--- NOTE | 2020-11-10 22:18 | HMH.EDFALL ---
ED Disposition Clinical Impression: Multiple sclerosis Scalp laceration Qualifiers: Encounter type: initial encounter Qualified Code(s): S01.01XA - Laceration without foreign body of scalp, initial encounter Fall Qualifiers: Encounter type: initial encounter Qualified Code(s): W19.XXXA - Unspecified fall, initial encounter Contusion Qualifiers: Encounter type: initial encounter Contusion area: upper arm Disposition: Home, Self-Care Condition on Discharge: Fair Instructions: How to Prevent Falls Additional Instructions: krystian out 10 days Referrals: Rafael Goldberg MD [Primary Care Provider] - - Critical Care Critical Care Time: No Attestation: On 11/10/20, the high probability of a clinically significant, sudden or life threatening deterioration of the following system(s) required my full and direct attention, intervention and personal management. The time I documented below is in addition to time spent performing reported procedures but includes the following listed in this critical care notation. Medical Decision Making - Medical Records Medical records reviewed: Yes: I reviewed the patient's medical records. - Marcellus Inquiry Pt receiving controlled substance: No Vital Signs: 11/10/20 20:35 11/10/20 21:35 11/10/20 22:00 Temperature 98.7 F Temperature Source Oral Pulse Rate [Right Brachial] 76 70 72 Respiratory Rate 16 16 17 Blood Pressure [Right Arm] 99/69 L 92/49 L 95/67 L Blood Pressure Mean [Right Arm] 79 63 76 Blood Pressure Source [Right Arm] Automatic Cuff Automatic Cuff Automatic Cuff Blood Pressure Position [Right Arm] Sitting Sitting Supine 02 Sat by Pulse Oximetry 97 97 98 Oxygen Delivery Method Room Air Room Air Room Air - Lab Data Lab results reviewed: Yes: I reviewed the patient's lab results. Lab Results 11/10/20 20:45: WBC 7.8, RBC 3.51 L, Hgb 10.3 L, Hct 32.7 L, MCV 93.2, MCH 29.3, MCHC 31.4 L, RDW 13.1, Plt Count 326, MPV 8.5, Neut % (Auto) 53.8, Lymph % (Auto) 33.5, [place] % (Auto) 10.2 H, Eos % (Auto) 1.6, Baso % (Auto) 0.9, Neut # (Auto) 4.2, Lymph # (Auto) 2.6, [place] # (Auto) 0.8, Eos # (Auto) 0.1, Baso # (Auto) 0.1 11/10/20 20:45: Sodium 136, Potassium 4.0, Chloride 100, Carbon Dioxide 32 H, Anion Gap 8.0, BUN 15, Creatinine 0.90, Estimated Creat Clear 47, Estimated GFR 66, Est GFR ( Amer) 80, Glucose 113 H, Calcium 9.0, Total Bilirubin 0.3, AST 21, ALT 21, Alkaline Phosphatase 79, Total Protein 6.6, Albumin 3.4 L, Globulin 3.2, Albumin/Globulin Ratio 1.1, TSH 2.23, Thyroxine (T4) 13.4 H Result diagrams: 11/10/20 20:45 11/10/20 20:45 Orders (Tests/Meds): ORDERS Category Date Time Status CT cervical spine wo con Stat Cat Scan 11/10/20 20:[address] head/brain wo con Stat Cat Scan 11/10/20 20:33 Taken XR chest portable Stat Exams 11/10/20 20:33 Taken XR elbow LT min 3V Stat Exams 11/10/20 20:39 Taken XR elbow RT min 3V Stat Exams 11/10/20 20:33 Taken XR forearm RT 2V Stat Exams 11/10/20 20:33 Taken XR humerus LT Stat Exams 11/10/20 20:39 Taken XR humerus RT Stat Exams 11/10/20 20:33 Taken XR knee LT 3V Stat Exams 11/10/20 20:33 Taken XR pelvis 1-2V Routine Exams 11/10/20 Taken XR shoulder LT min 2V Stat Exams 11/10/20 20:39 Taken XR shoulder RT min 2V Stat Exams 11/10/20 20:33 Taken - Radiology Data #1 Image(s): Chest, Humerus, Elbow, Forearm, Pelvis Image Reviewed: Yes I reviewed the patient's radiology image Preliminary Findings: No Fracture Seen - CT Data CT Scan: Head, C-Spine Time Received: 22:[address] Reviewed: Yes: I have viewed the radiologist's interpretation Preliminary Findings: No Fracture Seen Fall HPI - General Chief Complaint: Fall Stated Complaint: Fall Time Seen by Provider: 11/10/20 21:00 Mode of Arrival: EMS Source of Information: Patient, EMS, Medical Record Limitations: Physical Limitations Description of Symptoms (Recalled from ER Triage Doc. by RN): pt fell out of her [facility]
[2020-11-10 22:30] VITALS: BP 97/59; PULSE 65; RESP 17; O2SAT 98
--- NOTE | 2020-11-10 22:58 | PC.NURSE ---
patient is leaving with ems at this time.
[2020-11-10 23:02] VITALS: BP 95/45; PULSE 73; RESP 15; TEMP 36.7; O2SAT 99
== END 2020-11-10 23:04 | disposition home or self-care (01) ==
PROVIDERS: Emergency Provider Emergency Medicine; PCP Emergency Medicine
DX: S01.01XA Laceration without foreign body of scalp, initial encounter (principal); T07.XXXA Unspecified multiple injuries, initial encounter; W07.XXXA Fall from chair, initial encounter; Z91.81 History of falling; Y92.129 Unspecified place in nursing home as the place of occurrence of the external cause; G35 Multiple sclerosis; E78.5 Hyperlipidemia, unspecified; Z90.79 Acquired absence of other genital organ(s); Z87.891 Personal history of nicotine dependence; Z79.899 Other long term (current) drug therapy
CPT/HCPCS: 12001; 70450; 71045; 72125; 72170; 73030; 73060; 73080; 73090; 73562; 80053; 84436; 84443; 85025; 99284

== ENCOUNTER → 2020-11-28 13:33 | Outpatient (CLI) | payer MEDICARE, MEDICAID, SELFPAY | PROVIDERS: Visit Provider Emergency Medicine | DX: L89.620 Pressure ulcer of left heel, unstageable (principal) | CPT/HCPCS: 87070; 87077; 87186; 87205 ==

== ENCOUNTER → 2021-02-08 08:29 | Outpatient (CLI) | payer MEDICARE, MEDICAID, SELFPAY ==
--- NOTE | 2021-02-08 08:30 | CT_ITS ---
PROCEDURE: CT ANGIO ABDOMEN/FEMORAL CLINICAL INDICATION: nonhealing wound to RLE COMPARISON: No exams were available for comparison TECHNIQUE: IV Contrast: 75ML Isovue 370 Oral Contrast None Axial images obtained with sagittal and coronal reformats. All CT scans at the facility use one or more dose reduction, viz: automated exposure control, ma/kV adjustment per patient size (including targeted exams where dose is matched to indication, i.e. head), or iterative reconstruction technique. FINDINGS: VASCULAR: The visualized abdominal aorta demonstrates atheromatous calcification without evidence of significant stenosis. Minor atheromatous changes noted at the origins of the superior mesenteric, celiac trunk, superior mesenteric and inferior mesenteric arteries without evidence of stenosis. Bilateral renal arteries are normal in caliber without evidence of focal stenosis. Atheromatous calcification of the bilateral internal carotid arteries noted. Right: The right common iliac artery is demonstrates atheromatous calcification with the mild to moderate stenosis. There is extensive calcification of the right proximal external iliac artery with complete occlusion. There is reconstitution of flow in noted in the right common femoral artery. Normal caliber right common femoral, superficial femoral, popliteal arteries are noted. The popliteal artery trifurcations into posterior tibial, anterior tibial and peroneal arteries. Three-vessel runoff is noted up to the level of the ankle. Left: Atherosclerotic vascular calcification with severe stenosis noted in the distal common iliac artery. Minor atheromatous changes of the left external iliac artery is noted. There is moderate atherosclerotic calcification of the left common femoral artery. The superficial femoral, and popliteal arteries are unremarkable. There is diminutive peroneal artery with the non opacification noted in the distal peroneal artery. The anterior tibial and the posterior tibial arteries are patent through its entire extent up to the level of the ankle. The liver, spleen, adrenal glands and pancreas are unremarkable. Mild prominence of the bilateral renal pelvis noted. Nonobstructing left renal calculus measuring 4 millimeters. No evidence of hydronephrosis. No obstructive calculi are noted. Distended bladder is noted. Moderate fecal retention of the colon. Otherwise the visualized large and small bowel loops demonstrate no focal obstruction or wall thickening. No significant retroperitoneal or mesenteric lymphadenopathy is noted. Visualized lumbar spine is unremarkable. Contractures of the bilateral lower extremities are noted. IMPRESSION: Occlusion of the right external iliac artery with reconstitution of flow in the common femoral artery secondary to collateral vessels. Triple vessel runoff to the ankle is noted on the right. Two vessel runoff to the left ankle. Nonobstructing left renal calculus measuring 4 millimeters. Prominence of the bilateral pelvocaliceal system noted, without evidence of hydronephrosis. Dictated by: Maryann Wyman 02/08/2021 11:59 Maryann Wyman in [facility] 02/08/2021 11:59
== END ==
PROVIDERS: PCP Emergency Medicine; Visit Provider Internal Medicine Cardiovascular Disease
DX: I10 Essential (primary) hypertension (principal); I73.9 Peripheral vascular disease, unspecified; L89.613 Pressure ulcer of right heel, stage 3
CPT/HCPCS: 75635; Q9967

== ENCOUNTER → 2022-08-14 11:32 | Outpatient (CLI) | payer MEDICARE, MEDICAID, SELFPAY | PROVIDERS: PCP Emergency Medicine; Visit Provider Emergency Medicine | DX: S81.802A Unspecified open wound, left lower leg, initial encounter (principal); B96.5 Pseudomonas (aeruginosa) (mallei) (pseudomallei) as the cause of diseases classified elsewhere | CPT/HCPCS: 87070; 87077; 87186; 87205 ==

== ENCOUNTER 2022-11-15 14:00 | Emergency (ER) | payer MEDICARE, MEDICAID, SELFPAY ==
[2022-11-15] VITALS (12 sets, daily range): BP systolic 94–128; BP diastolic 63–83; PULSE 60–76; RESP 16–18; TEMP 36.5–37; O2SAT 93–100; BMI 17.6
--- NOTE | 2022-11-15 14:00 | ECG_ITS ---
APPROVED REPORT Exam: Resting ECG HR:66 bpm ECG Measurements Heart Rate 66 AXES [place] 136 P 32 QRSd 73 QRS 25 QT 385 T 12 QTc 399 Conclusion SINUS RHYTHM NORMAL ECG UNCONFIRMED REPORT Electronically signed by : Pio Carroll MD 11/16/2022 08:57:51
--- NOTE | 2022-11-15 14:16 | XR_ITS ---
FINAL REPORT CLINICAL HISTORY: chest pain FINDINGS: A portable view of the chest is obtained. This is a very limited exam. The patient's head obscures the upper lobes. Cardiac and mediastinal silhouettes are normal. Lung volumes are low. There is bibasilar opacity favoring atelectasis. There is no pleural effusion or pneumothorax. Limited evaluation of the upper abdomen reveals gaseous distension of what is likely both large and small bowel loops. IMPRESSION: 1. Very limited exam. 2. Bibasilar opacity favoring atelectasis. Reviewed, Interpreted and Dictated by Bel Alston MD Transcribed by Eladia Mckeon Authenticated and [facility]
[2022-11-15 14:28] LABS: Basophils # 0.1 K/mm3 (0-0.2); Basophils % 0.9 % (0.1-2.0); Eosinophils # 0.4 K/mm3 (0.0-0.4); Eosinophils % 6.3 % (0.1-12.0); Hematocrit 40.9 % (37.0-47.0); Hemoglobin 13.3 g/dL (12.2-16.2); Lymphocytes # 2.9 K/mm3 (0.7-4.5); Mean Corpuscular HGB Conc 32.5 g/dL (31.8-35.4); Mean Corpuscular Hemoglobin 29.3 pg (27.0-31.2); Mean Corpuscular Volume 90.2 fl (81-99); Monocytes # 0.4 K/mm3 (0.1-1.0); Monocytes % 6.2 % (1.7-9.3); Neutrophils % 43.6 % (37.0-80.0); Platelet Count 247 K/mm3 (142-424); Red Blood Count 4.54 M/mm3 (4.20-5.40); Red Cell Distribution Width 14.8 % (11.5-17.5); White Blood Count 6.8 K/mm3 (4.8-10.8)
[2022-11-15 14:33] LABS: Alanine Aminotransferase 22 U/L (12-78); Albumin Level 4.3 g/dl (3.5-5.0); Albumin/Globulin Ratio 1.5 (1.1-1.8); Alkaline Phosphatase 79 U/L (38-126); Anion Gap 8.9 mEq/L (5-15); Aspartate Amino Transferase 28 U/L (14-36); Bilirubin,Total 0.3 mg/dl (0.2-1.3); Blood Urea Nitrogen 12 mg/dl (7-17); Calcium 8.9 mg/dl (8.4-10.2); Carbon Dioxide 32 mmol/L (22.0-30.0); Chloride 100 mmol/L (98-107); Creatinine Clearance Estimated 52 mL/min (50-200); Estimated Glomerular Filt Rate 75 ml/min (>60); GFR (African American) 90 ML/MIN (>60); Globulin 2.9 g/dL (1.3-3.2); Glucose 114 mg/dl (74-100); Lipase 78 U/L (23-300); Potassium 3.9 mmoL/L (3.5-5.1); Sodium 137 mmol/L (136-145); Total Protein,Serum 7.2 g/dl (6.3-8.2)
[2022-11-15 14:46] LABS: Troponin I < 0.01 ng/ml (0.00-0.034)
--- NOTE | 2022-11-15 15:06 | HMH.EDGENADL ---
Discharge Plan Disposition Patient Disposition: Home, Self-Care Condition: Good Prescriptions Prescriptions: No Action furosemide 40 mg tablet 40 mg PO DAILYP PRN (Reason: Edema) gabapentin 600 mg tablet 600 mg PO TID Label Comments: 1200 MG orally three times a day for chronic pain atorvastatin 20 mg tablet 20 mg PO HS cilostazol 50 mg tablet 50 mg PO DAILY morphine 30 mg tablet extended release 30 mg PO DAILY pentoxifylline 400 mg tablet extended release 400 mg PO DAILY carvedilol 3.125 mg tablet 3.125 mg PO BID citalopram 20 mg tablet 20 mg PO DAILY potassium chloride 20 mEq tablet,ER particles/crystals 20 meq PO DAILY famotidine 20 mg tablet 20 mg PO DAILY lorazepam 0.5 mg tablet 0.5 mg PO HS trazodone 100 mg tablet 100 mg PO HS baclofen 10 mg tablet 10 mg PO DAILY levothyroxine 150 mcg tablet 150 mcg PO DAILY oxybutynin chloride 5 mg tablet extended release 24hr 5 mg PO DAILY mirtazapine 15 mg tablet 15 mg PO DAILY albuterol sulfate 90 mcg/actuation HFA aerosol inhaler 2 puff INHALATION Q4-6H PRN (Reason: Wheezing. Cough) fluticasone propionate 50 mcg/actuation spray,suspension 1 spray INTRANASAL DAILY Linzess 290 mcg capsule 290 mcg PO DAILYP PRN (Reason: Constipation) Activity Restrictions/Add. Instructions Additional Instructions/Restrictions: Additional instructions for CHEST PAIN: See your physician as soon as possible for further evaluation. Return immediately if worsening chest pain, vomiting, shortness of breath, fever, coughing of blood. Clinical Impressions Clinical Impression: Chest pain Instructions Patient Instructions: DI for Chest Pain Discharge ED Provider: Rudy Henry General Adult HPI General Chief complaint: Chest Pain Stated complaint: chest pain Time Seen by Provider: 11/15/22 15:05 Mode of Arrival: EMS Source of Information: EMS Limitations: See History Description of Symptoms (Recalled from ER Triage Doc. by RN): 52 F presents via EMS from [facility] for new onset chest pain that radiates to her left arm. EKG was WNL in route. VSS. NAD History of Present Illness HPI narrative: The patient is brought in by ambulance from [facility]. She is severely debilitated, difficult to communicate with, but [facility] staff says they are able to understand her and that she indicated that her heart hurt today. She was treated with some sort of antacid without improvement and therefore was sent to the emergency department for evaluation. I am unable to communicate with patient. She makes some sounds but I am unable to discern any words. Related Data Home Medications Medication Instructions Recorded Confirmed albuterol sulfate 90 mcg/actuation 2 puff inhalation Q4-6H PRN 11/15/22 11/15/22 aerosol inhaler Wheezing. Cough atorvastatin 20 mg tablet 20 mg PO HS Lipids 11/15/22 11/15/22 baclofen 10 mg tablet 10 mg PO DAILY Muscle Spasm 11/15/22 11/15/22 carvedilol 3.125 mg tablet 3.125 mg PO BID Heart 11/15/22 11/15/22 cilostazol 50 mg tablet 50 mg PO DAILY PVD 11/15/22 11/15/22 citalopram 20 mg tablet 20 mg PO DAILY Anxiety and 11/15/22 11/15/22 Depression famotidine 20 mg tablet 20 mg PO DAILY GERD 11/15/22 11/15/22 fluticasone propionate 50 1 spray intranasal DAILY Rhinitis 11/15/22 11/15/22 mcg/actuation nasal spray,suspension furosemide 40 mg tablet 40 mg PO DAILYP PRN Edema 11/15/22 11/15/22 gabapentin 600 mg tablet 600 mg PO TID Pain 11/15/22 11/15/22 levothyroxine 150 mcg tablet 150 mcg PO DAILY Hypothyroidism 11/15/22 11/15/22 linaclotide 290 mcg capsule 290 mcg PO DAILYP PRN Constipation 11/15/22 11/15/22 (Linzess) lorazepam 0.5 mg tablet 0.5 mg PO HS Sleep 11/15/22 11/15/22 mirtazapine 15 mg tablet 15 mg PO DAILY Pain 11/15/22 11/15/22 morphine 30 mg tablet,extended 30 mg PO DAILY Chronic Pain 11/15/22
[2022-11-15 18:16] LABS: Troponin I < 0.01 ng/ml (0.00-0.034)
--- NOTE | 2022-11-15 18:48 | PC.NURSE ---
REPORT GIVEN TO [facility]
--- NOTE | 2022-11-15 18:56 | PC.NURSE ---
EMS NOTIFIED OF TRANSFER TO [place]
--- NOTE | 2022-11-15 20:22 | PC.NURSE ---
Called for update on EMS back home. They will let us know when they're [place] in the [place]
== END 2022-11-15 20:38 | disposition home or self-care (01) ==
PROVIDERS: Emergency Provider Emergency Medicine
DX: R07.9 Chest pain, unspecified (principal); I10 Essential (primary) hypertension; I73.9 Peripheral vascular disease, unspecified; Z89.611 Acquired absence of right leg above knee; Z87.891 Personal history of nicotine dependence
CPT/HCPCS: 71045; 80053; 83690; 84484; 85025; 93005; 99285

== ENCOUNTER 2023-07-12 16:22 | Emergency (ER) | payer MEDICARE, MEDICAID, SELFPAY ==
[2023-07-12] VITALS (7 sets, daily range): BP systolic 109–125; BP diastolic 74–101; PULSE 78–108; RESP 17–20; TEMP 36.6; O2SAT 96–97; BMI 17.0
--- NOTE | 2023-07-12 16:23 | XR_ITS ---
PROCEDURE INFORMATION: Exam: XR Chest Exam date and time: 07/12/2023 4:53 PM Age: 53 years old Clinical indication: Cough; Additional info: SOA cough TECHNIQUE: Imaging protocol: Radiologic exam of the chest. Views: 1 view. COMPARISON: CR XR CHEST PORTABLE 11/15/2022 3:03 PM FINDINGS: Lungs: Somewhat limited exam obtained in low lung volumes with patient's head overlying the left upper lung bui redemonstrated. Mild left basilar atelectasis redemonstrated. Lungs are otherwise clear. Pleural spaces: Unremarkable. No pleural effusion. No pneumothorax. Heart/Mediastinum: Unremarkable. No cardiomegaly. Bones/joints: Unremarkable. Gastrointestinal tract: Gaseous distended colon and small bowel in the visualized upper abdomen redemonstrated. IMPRESSION: Stable somewhat limited low lung volume portable chest with left basilar atelectasis..
--- NOTE | 2023-07-12 16:27 | PC.NURSE ---
Pt provided with warm blanket
--- NOTE | 2023-07-12 16:42 | ECG_ITS ---
APPROVED REPORT Exam: Resting ECG HR:94 bpm ECG Measurements Heart Rate 94 AXES HI 127 P 29 QRSd 84 QRS 33 QT 354 T 27 QTc 406 Conclusion SINUS RHYTHM NONSPECIFIC T-WAVE ABNORMALITY BORDERLINE ECG UNCONFIRMED REPORT Electronically signed by : Pio Carroll MD 07/13/2023 11:02:05
--- NOTE | 2023-07-12 16:48 | PC.NURSE ---
Dr. Maya at [facility] for pt eval
--- NOTE | 2023-07-12 16:53 | HMH.EDGENADL ---
Discharge Plan Disposition Patient Disposition: Home, Self-Care Chief Complaint: Shortness of Breath/Dyspnea Prescriptions Prescriptions: No Action aspirin [Ovi Low Dose Aspirin] 81 mg tablet,delayed release (DR/EC) 81 mg PO DAILY bisacodyl 5 mg tablet 10 mg PO HS lorazepam 0.5 mg tablet 0.5 mg PO BID Qty: 60 5RF gabapentin 600 mg tablet 1,200 mg PO TID Qty: 180 5RF morphine 30 mg tablet extended release 30 mg PO DAILY Qty: 30 0RF furosemide 40 mg tablet 40 mg PO DAILYP PRN (Reason: Edema) atorvastatin 20 mg tablet 20 mg PO HS cilostazol 50 mg tablet 50 mg PO DAILY pentoxifylline 400 mg tablet extended release 400 mg PO DAILY carvedilol 3.125 mg tablet 3.125 mg PO BID citalopram 20 mg tablet 20 mg PO DAILY potassium chloride 20 mEq tablet,ER particles/crystals 20 meq PO DAILY famotidine 20 mg tablet 20 mg PO DAILY trazodone 100 mg tablet 100 mg PO HS baclofen 10 mg tablet 10 mg PO DAILY levothyroxine 150 mcg tablet 150 mcg PO DAILY oxybutynin chloride 5 mg tablet extended release 24hr 5 mg PO DAILY mirtazapine 15 mg tablet 15 mg PO DAILY albuterol sulfate 90 mcg/actuation HFA aerosol inhaler 2 puff INHALATION Q4-6H PRN (Reason: Wheezing. Cough) fluticasone propionate 50 mcg/actuation spray,suspension 1 spray INTRANASAL DAILY Linzess 290 mcg capsule 290 mcg PO DAILYP PRN (Reason: Constipation) Referrals Follow up/Referrals: Rafael Goldberg MD [Primary Care Provider] - See instructions Activity Restrictions/Add. Instructions Additional Instructions/Restrictions: Call your family doctor to establish care for this visit to the emergency department and schedule follow-up within 48 hours to ensure improvement. If you have any worsening of your condition or any other concerning signs or symptoms, return to the emergency department or your primary care doctor for further evaluation. Clinical Impressions Clinical Impression: General medical exam Discharge ED Provider: Alfred Maya General Adult HPI General Chief complaint: Shortness of Breath/Dyspnea Stated complaint: SOA Time Seen by Provider: 07/12/23 16:25 Mode of Arrival: EMS Source of Information: Patient Limitations: No Limitations Description of Symptoms (Recalled from ER Triage Doc. by RN): Presents to ED from [facility] via EMS with increased SOA. EMS stated when they recieved report from [facility] they stated she has not had anything PO for a day and has refused all of her medications today Patient denies chest pain History of Present Illness HPI narrative: 53-year-old female with history of hypertension, hyperlipidemia, CAD, multiple sclerosis with numerous contractures and known dysphagia presenting with concern for shortness of breath from nursing facility. [facility], nursing facility, states that patient was diagnosed with URI about a week prior. Has been been unable to take her medications because she is declining them at home. Also disallowing detention to crush pills. Patient able to answer questions with yes and no. Patient has not been fevers, chills, vomiting, denies abdominal pain, chest pain, shortness of breath, diarrhea or constipation. No new pains or complaints at this time. Related Data Home Medications Medication Instructions Recorded Confirmed albuterol sulfate 90 mcg/actuation 2 puff inhalation Q4-6H PRN 11/15/22 04/10/23 aerosol inhaler Wheezing. Cough atorvastatin 20 mg tablet 20 mg PO HS Lipids 11/15/22 04/10/23 baclofen 10 mg tablet 10 mg PO DAILY Muscle Spasm 11/15/22 04/10/23 carvedilol 3.125 mg tablet 3.125 mg PO BID Heart 11/15/22 04/10/23 cilostazol 50 mg tablet 50 mg PO DAILY PVD 11/15/22 04/10/23 citalopram 20 mg tablet 20 mg PO DAILY Anxiety and 11/15/22 04/10/23 Depression famotidine 20 mg tablet 20 mg PO DAILY GERD 11/15/22 04/10/23 fluticasone propion
[2023-07-12 17:25] LABS: Basophils # 0.1 K/mm3 (0-0.2); Basophils % 1.1 % (0.1-2.0); Eosinophils # 0.5 K/mm3 (0.0-0.4); Eosinophils % 6.5 % (0.1-12.0); Hematocrit 43.2 % (37.0-47.0); Hemoglobin 14.4 g/dL (12.2-16.2); Lymphocytes # 3.5 K/mm3 (0.7-4.5); Lymphocytes % 51.2 % (10-50); Mean Corpuscular HGB Conc 33.4 g/dL (31.8-35.4); Mean Corpuscular Hemoglobin 29.8 pg (27.0-31.2); Mean Corpuscular Volume 89.2 fl (81-99); Mean Platelet Volume 9.3 fl (7.4-10.4); Monocytes # 0.5 K/mm3 (0.1-1.0); Monocytes % 6.8 % (1.7-9.3); Neutrophils # 2.4 K/mm3 (1.8-7.8); Neutrophils % 34.5 % (37.0-80.0); Platelet Count 265 K/mm3 (142-424); Red Blood Count 4.84 M/mm3 (4.20-5.40); Red Cell Distribution Width 13.9 % (11.5-17.5); White Blood Count 6.9 K/mm3 (4.8-10.8)
[2023-07-12 17:29] LABS: MANUAL DIFFERENTIAL MANUAL DIFFERENTIAL (MANUAL DIFF)
--- NOTE | 2023-07-12 17:32 | PC.NURSE ---
[facility] notified of [facility]
[2023-07-12 17:37] LABS: VBG Base Excess -1.9 mmol/L (-2.4-2.3); VBG HCO3 22.8 mmol/L (23-30); VBG PCO2 37.2 mmol/L (35-51); VBG PH 7.41 mmol/L (7.31-7.41); VBG PO2 140.4 mmol/L (28-40)
[2023-07-12 17:37] LABS: Alanine Aminotransferase 25 U/L (12-78); Albumin Level 4.1 g/dl (3.5-5.0); Albumin/Globulin Ratio 1.3 (1.1-1.8); Alkaline Phosphatase 73 U/L (38-126); Anion Gap 13.7 mEq/L (5-15); Aspartate Amino Transferase 31 U/L (14-36); Bilirubin,Total 0.2 mg/dl (0.2-1.3); Blood Urea Nitrogen 12 mg/dl (7-17); Carbon Dioxide 28 mmol/L (22.0-30.0); Chloride 104 mmol/L (98-107); Creatinine Clearance Estimated 61 mL/min (50-200); Estimated Glomerular Filt Rate 87 ml/min (>60); GFR (African American) 105 ML/MIN (>60); Globulin 3.1 g/dL (1.3-3.2); Glucose 151 mg/dl (74-100); Potassium 3.7 mmoL/L (3.5-5.1); Sodium 142 mmol/L (136-145); Total Protein,Serum 7.2 g/dl (6.3-8.2)
[2023-07-12 17:54] LABS: Troponin I < 0.01 ng/ml (0.00-0.034)
[2023-07-12 18:08] LABS: Eosinophils % 5 % (0-3); Lymphocytes % 60 % (10-50); Monocytes % 6 % (2-9); Neutrophils % 25 % (42-76); Platelet Estimate Normal; RBC Morphology Normal; Total Cells Counted 100
--- NOTE | 2023-07-12 18:12 | PC.NURSE ---
Report given to Elysia at [facility].
--- NOTE | 2023-07-12 18:22 | PC.NURSE ---
[facility] notified of transfer.
== END 2023-07-12 19:33 | disposition home or self-care (01) ==
PROVIDERS: Emergency Provider Emergency Medicine; PCP Emergency Medicine
DX: R06.02 Shortness of breath (principal); I25.10 Atherosclerotic heart disease of native coronary artery without angina pectoris; E78.5 Hyperlipidemia, unspecified; G35 Multiple sclerosis; I73.9 Peripheral vascular disease, unspecified; I11.9 Hypertensive heart disease without heart failure
CPT/HCPCS: 71045; 80053; 82803; 84484; 85007; 85025; 93005; 96374; 99284; J2405

== ENCOUNTER → 2023-07-17 10:45 | Outpatient (CLI) | payer MEDICARE, MEDICAID, SELFPAY ==
--- NOTE | 2023-07-17 10:55 | FL_ITS ---
FINAL REPORT CLINICAL HISTORY: DYSPHAGIA, FT 3.34 DAP 330.24 FINDINGS: MODIFIED BARIUM SWALLOW History: Dysphagia. FINDINGS: Fluoroscopy was provided for the speech pathologist to evaluate the swallowing mechanism. The patient was given several different consistencies of barium while the swallow was visualized fluoroscopically. The report of the speech pathologist should be consulted prior to making dietary decisions. Fluoro time: 3 minutes 34 seconds DAP: 330.24 uGy.m2 IMPRESSION: Modified barium swallow under fluoroscopic guidance. Please see the report of the speech pathologist for more detail. Films reviewed , interpreted and dictated by Dr. Bentley. Transcribed by Agustin Roberts PA-C. Reviewed, Interpreted and Dictated by James Bentley III, MD Transcribed by DARIAN Torres Authenticated and . [facility]
--- NOTE | 2023-07-17 11:44 | HMH.SLMBS2 ---
Speech & Language Evaluation Speech/Language Mod Barium Swallow Start: 07/17/23 11:28 Freq: once Status: Complete Protocol: Document 07/17/23 11:28 CE (Rec: 07/17/23 11:43 CE [id number]) General Information General Current Food Consistancy Regular,Thin Liquids Oxygen Status Room Air Ability to Follow Directions Fair Communication Ability Severe Impairment MBS Recommendations Diet Dietary Recommendations Pureed,[place] Liquids Treatment/Strategies Strategy/Precaution Recommend Double Swallow,Small Bites and Sips,Alternate Liquids/Solids Referrals/Other Recommended Referrals GI Consult Other Recommendations Retrograde flow of all bolus consistencies Mod Barium Swallow Impressions Summary and Impressions Oral Phase Impression Severe Impairment Oral Phase Summary Severe impairment of the oral preparatory phase and oral transit phase of the swallow likely 2' anatomy and positioning. Pt was unable to provide an adequate seal of straw which is primary means of receiving liquid bolus, as well as anterior loss across puree, pudding, and solid trials. Pt demonstrated munching pattern in an attempt to masticate solids and exhibited scattered loss of bolus 2' poor tongue control. Pt was unable to independently bite mechanical soft and [employer] provided bite size amount of mechanical soft and regular solid to trial. She exhibited increased mastication time 2' edentulous state and multiple swallows, as well as a puree wash to clear residue within the oral cavity. It is recommended that pt be placed on a puree diet 2' difficulty masticating and manipulating bolus. Pharyngeal Phase Impression Severe Impairment Pharyngeal Phase Summary Severe impairment of the pharyngeal phase of the swallow 2' a/p spills prior to swallow initiation, initiation of the swallow w
== END ==
PROVIDERS: PCP Emergency Medicine; Visit Provider Emergency Medicine
DX: R13.10 Dysphagia, unspecified (principal)
CPT/HCPCS: 70371; 92611

== ENCOUNTER 2024-01-31 12:53 | Emergency (ER) | payer OTHER, SELFPAY ==
[2024-01-31] VITALS (8 sets, daily range): BP systolic 93–130; BP diastolic 64–87; PULSE 54–73; RESP 16–18; TEMP 36.3–36.4; O2SAT 90–95; BMI 17.2
[2024-01-31 13:31] LABS: Basophils # 0.1 K/mm3 (0-0.2); Basophils % 1.1 % (0.1-2.0); Eosinophils # 0.3 K/mm3 (0.0-0.4); Eosinophils % 6.2 % (0.1-12.0); Hematocrit 40.2 % (37.0-47.0); Hemoglobin 12.7 g/dL (12.2-16.2); Lymphocytes # 2.6 K/mm3 (0.7-4.5); Lymphocytes % 56.9 % (10-50); Mean Corpuscular HGB Conc 31.6 g/dL (31.8-35.4); Mean Corpuscular Hemoglobin 28.5 pg (27.0-31.2); Mean Corpuscular Volume 90.1 fl (81-99); Monocytes # 0.3 K/mm3 (0.1-1.0); Monocytes % 5.5 % (1.7-9.3); Neutrophils # 1.4 K/mm3 (1.8-7.8); Neutrophils % 30.4 % (37.0-80.0); Platelet Count 186 K/mm3 (142-424); Red Blood Count 4.46 M/mm3 (4.20-5.40); White Blood Count 4.6 K/mm3 (4.8-10.8)
[2024-01-31 13:35] LABS: Chloride 108 mmol/L (98-107)
[2024-01-31 13:36] LABS: Potassium 3.8 mmoL/L (3.5-5.1); Sodium 138 mmol/L (136-145)
[2024-01-31 13:38] LABS: Alanine Aminotransferase 21 U/L (12-78); Alkaline Phosphatase 66 U/L (38-126); Aspartate Amino Transferase 25 U/L (14-36); Bilirubin,Total 0.3 mg/dl (0.2-1.3); Blood Urea Nitrogen 13 mg/dl (7-17); Creatinine Clearance Estimated 71 mL/min (50-200); Estimated Glomerular Filt Rate 103 ml/min (>60); GFR (African American) 125 ML/MIN (>60)
[2024-01-31 13:39] LABS: Albumin Level 3.4 g/dl (3.5-5.0); Albumin/Globulin Ratio 1.3 (1.1-1.8); Anion Gap 5.8 mEq/L (5-15); Calcium 8.9 mg/dl (8.4-10.2); Carbon Dioxide 28 mmol/L (22.0-30.0); Globulin 2.6 g/dL (1.3-3.2); Glucose 89 mg/dl (74-100)
[2024-01-31 13:39] LABS: Lactic Acid 0.9 mmol/L (0.7-2.1)
[2024-01-31 14:13] LABS: MANUAL DIFFERENTIAL MANUAL DIFFERENTIAL (MANUAL DIFF)
--- NOTE | 2024-01-31 14:22 | CT_ITS ---
FINAL REPORT TECHNIQUE: Noncontrast exam CLINICAL HISTORY: mental status change FINDINGS: Exam is limited due to suboptimal positioning. There is severe atrophy. Ventricles are normal in size for degree of atrophy. There is no hemorrhage, mass effect or edema. IMPRESSION: Limited exam secondary to positioning. No acute intracranial abnormality identified. Reviewed, Interpreted and Dictated by Kortney Goyal MD Transcribed by Brie Mathis Authenticated and . [facility]
--- NOTE | 2024-01-31 14:22 | XR_ITS ---
FINAL REPORT TECHNIQUE: Single view chest CLINICAL HISTORY: AMS, c/f pneumonia FINDINGS: A single view of the chest was obtained. Lung apices are obscured. The heart and mediastinum are within normal limits. The lungs are hyperinflated but clear.. There is no pneumothorax. There is gaseous distention of the bowel suggestive of ileus. Osseous structures are unremarkable. IMPRESSION: No obvious pneumonia. Reviewed, Interpreted and Dictated by Kortney Goyal MD Transcribed by Brie Mathis Authenticated and [facility]
--- NOTE | 2024-01-31 14:25 | [facility].EDGENADL ---
Discharge Plan Disposition Patient Disposition: Xfer [facility] Condition: Fair Prescriptions Prescriptions: No Action bisacodyl 5 mg tablet 10 mg PO HS oxybutynin chloride 5 mg tablet PO acetaminophen 500 mg tablet 500 mg PO Q4H PRN (Reason: fever or pain) albuterol sulfate 90 mcg/actuation HFA aerosol inhaler 2 puff INHALATION Q6H PRN (Reason: Wheezing. Cough) baclofen 10 mg tablet 10 mg PO TID cilostazol 50 mg tablet 50 mg PO BID famotidine 20 mg tablet 20 mg PO HS docusate sodium 50 mg/5 mL liquid 300 mg PO BID fluticasone propionate 50 mcg/actuation spray,suspension 2 spray INTRANASAL QHS multivitamin Tablet 1 tab PO DAILY sennosides-docusate sodium [Senexon-S] 8.6-50 mg tablet 2 tab-cap PO TID pentoxifylline 400 mg tablet extended release 400 mg PO TID Deep Sea Nasal 0.65 % aerosol,spray 2 spray intranasal Q4H PRN Rx Instructions: while awake pseudoephedrine HCl 30 mg tablet 30 mg PO Q4-6H PRN Rx Instructions: DNExceed 4 doses/24h Artificial Tears([id number]) 1-0.2-0.2 % drops 1 drp ophthalmic (eye) BID magnesium hydroxide [Milk of Magnesia] 400 mg/5 mL suspension 30 ml PO DAILY PRN bisacodyl 10 mg suppository 10 mg LA DAILY PRN bisacodyl 5 mg tablet 10 mg PO ONCE PRN aspirin 325 mg tablet 325 mg PO DAILY mirtazapine 30 mg tablet 30 mg PO HS magnesium citrate [OneLAX Magnesium Citrate] Solution 296 ml PO ONCE Rx Instructions: Give one bottle by mouth once every 3 days polyvinyl alcohol 1.4 % drops 1 drp Eye-Both BID gabapentin 600 mg tablet 1,200 mg PO TID Qty: 180 5RF morphine 30 mg tablet extended release 30 mg PO DAILY Qty: 30 0RF lorazepam 0.5 mg tablet 0.5 mg PO BID Qty: 60 5RF carvedilol 3.125 mg tablet 3.125 mg PO BID citalopram 20 mg tablet 20 mg PO DAILY trazodone 100 mg tablet 100 mg PO HS levothyroxine 150 mcg tablet 150 mcg PO DAILY Linzess 290 mcg capsule 290 mcg PO DAILYP PRN (Reason: Constipation) Referrals Follow up/Referrals: Provider,Referral, [Primary Care Provider] - See instructions Activity Restrictions/Add. Instructions Additional Instructions/Restrictions: You were seen in the ED today due to generalized weakness. Labs, x-ray, CT were reassuring. Please follow-up with primary care provider. Return to the ED if symptoms worsen or if new concerning symptoms arise. Thank you. Clinical Impressions Clinical Impression: Altered mental status Qualifiers: Altered mental status type: unspecified Qualified Code(s): R41.82 - Altered mental status, unspecified Discharge ED Provider: Musa Young General Adult HPI General Chief complaint: Weakness Stated complaint: AMS Time Seen by Provider: 01/31/24 14:14 Mode of Arrival: EMS Source of Information: Patient Limitations: No Limitations Description of Symptoms (Recalled from ER Triage Doc. by RN): Per senior living patient has had increased tiredness and weakness. Patient states she is tired. History of Present Illness HPI narrative: Patient is 54-year-old female with history of multiple sclerosis, prior CVA, HTN, PAD who presents to the ED due to altered mental status. Per EMS, senior living reported patient has not been acting like herself. States she has been more tired and weak. On arrival, patient is alert but fatigued appearing. She is able to communicate that she is tired and did not sleep well. Further history unable to be obtained due to patient's mental status. Related Data Home Medications Medication Instructions Recorded Confirmed carvedilol 3.125 mg tablet 3.125 mg PO BID Heart 11/15/22 11/26/23 citalopram 20 mg tablet 20 mg PO DAILY Anxiety and 11/15/22 11/26/23 Depression levothyroxine 150 mcg tablet 150 mcg PO DAILY Hypothyroidism 11/15/22 11/26/23 linaclotide 290 mcg capsule 290 mcg PO DAILYP PRN Constipation 11/15/22 11/26/23 (Linzess) trazodone 100 mg tablet 100 mg PO HS Sleep 11/15/22 11/26/23 bisacodyl 5 mg tablet 10 mg PO HS 04/10/23 11/26/23 acetaminophen 500 mg tablet 500 mg PO Q4H PRN fever or pain 09/09/23 11/26/23 albuterol sulfate 90 mcg/actuation 2 puff inhalation Q6H PRN 09/09/23 11/26/23 aerosol inhaler Wheezing. Cough baclofen 10 mg tablet 10 mg PO TID Muscle Spasm 09/09/23 11/26/23 bisacodyl 10 mg rectal suppository 10 mg LA DAILY PRN 09/09/23 11/26/23 cilostazol 50 mg tablet 50 mg PO BID PVD 09/09/23 11/26/23 docusate sodium 50 mg/5 mL oral 300 mg PO BID 09/09/23 11/26/23 liquid famotidine 20 mg tablet 20 mg PO HS GERD 09/09/23 11/26/23 fluticasone propionate 50 2 spray intranasal QHS Rhinitis 09/09/23 11/26/23 mcg/actuation nasal spray,suspension magnesium hydroxide 400 mg/5 mL 30 ml PO DAILY PRN 09/09/23 11/26/23 oral suspension (Milk of Magnesia) multivitamin 1 tab PO DAILY 09/09/23 11/26/23 peg [id number] 1 1 drp ophthalmic (eye) BID 09/09/23 11/26/23 %-0.2 %-0.2 % eye drops (Artificial Tears ([id number])) pentoxifylline 400 mg 400 mg PO TID Supplement 09/09/23 11/26/23 tablet,extended release pseudoephedrine HCl 30 mg tablet 30 mg PO Q4-6H PRN 09/09/23 11/26/23 sennosides 8.6 mg-docusate sodium 2 tab-cap PO TID 09/09/23 11/26/23 50 mg tablet (Senexon-S) sodium chloride 0.65 % nasal spray 2 spray intranasal Q4H PRN 09/09/23 11/26/23 aerosol (Deep Sea Nasal) aspirin 325 mg tablet 325 mg PO DAILY 09/26/23 11/26/23 bisacodyl 5 mg tablet 10 mg PO ONCE PRN 09/26/23 11/26/23 magnesium citrate (OneLAX 296 ml PO ONCE 09/26/23 11/26/23 Magnesium Citrate oral solution) mirtazapine 30 mg tablet 30 mg PO HS 09/26/23 11/26/23 polyvinyl alcohol 1.4 % eye drops 1 drp Eye-Both BID 09/26/23 11/26/23 oxybutynin chloride 5 mg tablet mg PO 10/10/23 11/26/23 Previous Rx's Medication Instructions Recorded gabapentin 600 mg tablet 1,200 mg (2 x 600 mg) PO TID Pain 11/12/23 #180 tabs morphine 30 mg tablet,extended 30 mg PO DAILY Chronic Pain #30 12/13/23 release tabs lorazepam 0.5 mg tablet 0.5 mg PO BID Sleep #60 tabs 01/30/24 Allergies Allergy/AdvReac Type Severity Reaction Status Date / Time No Known Allergies Allergy Verified 11/26/23 12:59 [facility] Disclaimer: The information contained in this section may have been updated after the patient was seen, as this information can be updated by other users. Medical History Contracture of muscle, unspecified site Dyspnea Edema Essential (primary) hypertension Hemiplegia and hemiparesis following unspecified cerebrovascular disease affecting left non-dominant side Hospice care patient [place] disease Other cerebrovascular disease PAD (peripheral artery disease) Stage III pressure ulcer of right heel Surgical History S/P AKA (above knee amputation) unilateral Social History Smoking Status: Former smoker alcohol intake: never current occupational status: other Travel in the last 8 weeks: None housing: senior living ROS Obtained: Yes All systems reviewed & no additional complaints except as documented Physical Exam General General appearance: alert and in no apparent distress Comment: Chronically ill appearing with muscle contractures, right AKA. Head Head exam: atraumatic, normocephalic and normal inspection Eye Eye exam: Present normal appearance, PERRL and EOMI ENT ENT exam: Present normal exam, normal oropharynx, mucous membranes moist, TM's normal bilaterally and normal external ear exam Neck Neck exam: Present normal inspection, full ROM and trachea midline; Absent meningismus or lymphadenopathy Chest Chest inspection: Present normal inspection and symmetric chest wall rise; Absent tenderness Respiratory Respiratory exam: Present normal lung sounds bilaterally; Absent respiratory distress Cardiovascular Cardiovascular exam: Present regular rate and normal rhythm; Absent JVD Abdominal Exam Abdominal exam: Present soft and normal bowel sounds; Absent distention, tenderness or guarding Extremities Exam Extremities exam: Present normal inspection, full ROM and normal capillary refill; Absent calf tenderness Back Exam Back exam: Present normal inspection; Absent tenderness Neurological Exam Neurological exam: Present alert and oriented X3 Psychiatric Psychiatric exam: Present normal affect and normal mood Skin Skin exam: Present warm, dry, intact and normal color Lymphatic Lymphatic Findings: no adenopathy Medical Decision Making Marcellus Inquiry Pt receiving controlled substance: No Vital Signs: 01/31/24 12:54 01/31/24 13:30 01/31/24 14:00 Temperature 97.4 F L Temperature Source Oral Pulse Rate 64 59 L Pulse Rate [Radial] 73 Respiratory Rate 16 Blood Pressure 111/82 108/76 L Blood Pressure [Right Arm] 130/87 Blood Pressure Mean [Right Arm] 101 Blood Pressure Source [Right Arm] Automatic Cuff Blood Pressure Position [Right Arm] Sitting 02 Sat by Pulse Oximetry 92 L 90 L 90 L Oxygen Delivery Method Room Air Room Air Room Air 01/31/24 15:00 01/31/24 15:30 Temperature Temperature Source Pulse Rate 58 L 57 L Pulse Rate [Radial] Respiratory Rate Blood Pressure 103/69 L 107/64 L Blood Pressure [Right Arm] Blood Pressure Mean [Right Arm] Blood Pressure Source [Right Arm] Blood Pressure Position [Right Arm] 02 Sat by Pulse Oximetry 95 95 Oxygen Delivery Method Room Air Room Air Lab Data Lab Results 01/31/24 13:10: WBC 4.6 L, RBC 4.46, Hgb 12.7, Hct 40.2, MCV 90.1, MCH 28.5, MCHC 31.6 L, RDW 15.0, Plt Count 186, MPV 9.0, Neut % (Auto) 30.4 L, Lymph % (Auto) 56.9 H, Lea % (Auto) 5.5, Eos % (Auto) 6.2, Baso % (Auto) 1.1, Neut # (Auto) 1.4 L, Lymph # (Auto) 2.6, Lea # (Auto) 0.3, Eos # (Auto) 0.3, Baso # (Auto) 0.1, Sodium 138, Potassium 3.8, Chloride 108 H, Carbon Dioxide 28, Anion Gap 5.8, BUN 13, Creatinine 0.60, Estimated Creat Clear 71, Estimated GFR 103, Est GFR ( Amer) 125, Glucose 89, Calcium 8.9, Total Bilirubin 0.3, AST 25, ALT 21, Alkaline Phosphatase 66, Total Protein 6.0 L, Albumin 3.4 L, Globulin 2.6, Albumin/Globulin Ratio 1.3 01/31/24 13:11: Lactate 0.9 01/31/24 14:27: SARS-CoV-2 (PCR) Not detected, Influenza A Untype (PCR) Not detected, Influenza Type B (PCR) Not detected 01/31/24 13:10 01/31/24 13:10 Orders (Tests/Meds): ORDERS Category Date Time Status CT head/brain wo con Stat Cat Scan 01/31/24 14:22 Completed Chest XR -- portable [XR chest portable] Stat Exams 01/31/24 14:22 Completed Complete Blood Count Auto Diff Stat Lab 01/31/24 13:10 Results Comprehensive Metabolic Panel Stat Lab 01/31/24 13:10 Completed Lactic Acid Stat Lab 01/31/24 13:11 Completed Rapid PCR Covid and Flu A/B Stat Lab 01/31/24 14:27 Completed Urinalysis and Microscopic Stat Lab 01/31/24 14:22 Ordered Medical Decision Narrative: In summary, patient is a 54-year-old female with history of multiple sclerosis, HTN, HLD, prior CVA, evaluated in the emergency department today due to altered mental status and generalized weakness. On arrival, patient is hemodynamically stable with normal vital signs. On examination, patient is chronically ill and fatigued appearing. Differential diagnosis includes but is not limited to pneumonia, intracranial abnormality, viral infection. Workup initiated including CBC, CMP, lactate, COVID/flu, CT head without contrast, CXR. Labs independently interpreted by me, no significant findings seen. Imaging independently interpreted by me and significant for no pneumonia on chest x-ray, otherwise no acute findings. CT head without contrast obtained and interpreted by me demonstrating no acute intracranial abnormality. On reevaluation, patient is resting comfortably and appears at her baseline. Denies any further complaints at this time. Patient is appropriate for discharge with return to her facility at this time. Patient counseled on home care, given strict return precautions and agreeable to plan. Additional history was provided by EMS. I considered the utility of obtaining urinalysis, but decided against this because patient deferred. I considered the utility of treatment with antibiotics, but decided against this because there would be of low utility. Critical Care Critical Care Time Critical Care Time: No
[2024-01-31 14:37] LABS: Coronavirus 19, PCR Not Detected (NotDetected); Influenza A, PCR Not Detected (NotDetected); Influenza B, PCR Not Detected (NotDetected)
[2024-01-31 16:54] LABS: Eosinophils % 3 % (0-3); Lymphocytes % 61 % (10-50); Monocytes % 8 % (2-9); Neutrophils % 25 % (42-76); Total Cells Counted 100
[2024-01-31 16:58] LABS: Platelet Estimate Normal; RBC Morphology Normal
== END 2024-01-31 17:04 ==
PROVIDERS: Emergency Provider Student in an Organized Health Care Education/Training Program
DX: R41.82 Altered mental status, unspecified (principal); R53.1 Weakness; R53.83 Other fatigue; G35 Multiple sclerosis; I73.89 Other specified peripheral vascular diseases; I10 Essential (primary) hypertension; Z86.73 Personal history of transient ischemic attack (TIA), and cerebral infarction without residual deficits
CPT/HCPCS: 70450; 71045; 80053; 83605; 85007; 85025; 87636; 99284

== ENCOUNTER 2024-06-09 16:28 | Outpatient (CLI) | payer OTHER, SELFPAY ==
[2024-06-09 19:53] LABS: Free T4 (Free Thyroxine) 1.83 ng/dl (0.78-2.19)
== END 2024-06-09 23:59 | disposition home or self-care (01) ==
LOC: LAB.DROPOF 16:30
PROVIDERS: PCP Internal Medicine; Visit Provider Internal Medicine
DX: E03.9 Hypothyroidism, unspecified (principal)
CPT/HCPCS: 84439; 84443

== ENCOUNTER 2024-08-11 13:56 | Outpatient (CLI) | payer OTHER, SELFPAY ==
[2024-08-11 15:08] LABS: Free T4 (Free Thyroxine) 2.28 ng/dl (0.78-2.19)
[2024-08-11 15:22] LABS: Thyroid Stimulating Hormone 0.03 uIU/mL (0.465-4.68)
== END 2024-08-11 23:59 | disposition home or self-care (01) ==
LOC: LAB.DROPOF 13:57
PROVIDERS: Nurse Practitioner Family; PCP Internal Medicine; Visit Provider Family Medicine
DX: E03.9 Hypothyroidism, unspecified (principal)
CPT/HCPCS: 84439; 84443

== ENCOUNTER 2025-01-29 07:15 | Outpatient (CLI) | payer OTHER, SELFPAY ==
[2025-01-29 08:25] LABS: Thyroid Stimulating Hormone 3.21 uIU/mL (0.465-4.68)
== END 2025-01-29 23:59 | disposition home or self-care (01) ==
PROVIDERS: PCP Family Medicine; Visit Provider Family Medicine
DX: E03.9 Hypothyroidism, unspecified (principal)
CPT/HCPCS: 36415; 84443

== ENCOUNTER 2025-02-26 09:36 | Outpatient (CLI) | payer MEDICARE, MEDICAID, SELFPAY ==
[2025-02-26 10:38] LABS: Chol/HDL Ratio 3.3 (1-3.5); Cholesterol 166 mg/dl (140-200); HDL Cholesterol 51 mg/dl (40-60); Triglycerides 72 mg/dl (30-150); VLDL Cholesterol 14 mg/dL (0-40)
[2025-02-26 10:48] LABS: Direct LDL Cholesterol 97.75 mg/dL (100-129)
== END 2025-02-26 23:59 | disposition home or self-care (01) ==
PROVIDERS: PCP Nurse Practitioner Family; Visit Provider Nurse Practitioner Family
DX: E78.5 Hyperlipidemia, unspecified (principal)
CPT/HCPCS: 36415; 80061

== ENCOUNTER 2025-05-12 06:58 | Outpatient (CLI) | payer OTHER, SELFPAY ==
--- OUTSIDE RECORDS SUMMARY | 2025-05-12 06:59 | XMS_ITS ---
Author Name Auto Generated, Auto Generated Organization [facility] Address [address] [place] [address] Phone [phone] Care Team Providers Care Audio/Video Engineer Name Role Phone Rocky Reeves Unavailable Rodger Beauchamp Unavailable [phone] Rafael Goldberg Unavailable Justa Kim Unavailable Functional Status No Results Mental Status No Results Allergies and Intolerances Name Onset Date Reaction Severity No Known Allergies (Allergy) SatMar 26 14:58:00 EDT 2019 Encounters Program Name Primary Diagnosis Admission Date/Time Dis charge Date/Time Home-based Hospice SatJul 21 20 :00:00 EDT 2022Sep 13 18:59:00 EST 2023 Medications Medication Directions Start Date End Date pseudoephedrine 30 mg tablet 1 Tablet Oral 2 Times Daily for 3 Days Indication: sever nasal congetsion SatAug 26 00:00:00 EST 2023Aug 26 16:15:00 EST 2023 pseudoephedrine 30 mg tablet 1 Tablet Oral 2 Times Daily Indication: sever nasal congetsion SatAug 26 00:00:00 EST 2023Sep 13 00:00:00 EST 2023 [place] Nasal 0.65 % spray aerosol 1 [place] Intranasal 2 Times Daily for 5 Days Indication: recrruing nose bleeds SatAug 26 00:00:00 EST 2023Aug 30 23:59:00 EST 2023 gabapentin 600 mg tablet 2 tabs TABLET O ral 3 Times Daily Indication: pain Kayce Aug 13 00:00:00 EST 2023Sep 13 00:00:00 EST 2023 polyvinyl alcohol 1.4 % eye drops 1 Drop Both Eyes 2 Times Daily Indication: dry eyes SatAug 13 00:00:00 EST 2023Sep 13 00:00:00 EST 2023 megestroL 400 mg/10 mL (10 mL) oral suspension 10 Milliliter Oral Every 1 Day Indication: appetite SatAug 13 00:00:00 EST 2023Sep 13 00:00:00 EST 2023 Artificial Tears ([id number]) 1 %-0.2 %-0.2 % eye drops 1 Drop Both Eyes PRN 2 Times Daily Indication: dry eyes SatAug 13 00:00:00 EST 2023Sep 13 00:00:00 EST 2023 amoxicillin 250 mg/5 mL oral suspension 5 Milliliter Oral 3 Times Daily for 10 Days Indication: URI SatJul 27 00:00:00 EDT 2023Aug 05 23:59:00 EST 2023 [place] Nasal 0.65 % spray aerosol 1 [place] Intranasal 2 Times Daily Indication: recrruing nose bleeds e Sep 00:00:00 EDT 2023Aug 26 16:16:00 EST 2023 [place] Nasal 0.65 % spray aerosol 1 [place] Intranasal PRN Every 4 Hours Indication: dry mucosa, increased nasal congestion e Sep 00:00:00 EDT 2023Sep 13 00:00:00 EST 2023 Augmentin 500 mg-125 mg tablet 1 Tablet Oral 2 Times Daily for 7 Days Indication: URI Tue Sep 00:00:00 EDT 2023Jun 08 23:59:00 EDT 2023 mirtazapine 15 mg tablet 1 Tablet Oral E very 1 Day for 7 Days Indication: depression SatMay 14 00:00:00 EDT 2023May 20 23:59:00 EDT 2023 pseudoephedrine 30 mg tablet 1 Tablet Oral 2 Times Daily Indication: sever nasal congetsion SatApr 10 00:00:00 EDT 2023Aug 26 14:42:00 EST 2023 Augmentin 500 mg-125 mg tablet 1 Tablet Oral 2 Times Daily for 7 Days Indication: URI SatDec 19 00:00:00 EDT 2023Dec 25 23:59:00 EDT 2023 Senexon-S 8.6 mg-50 mg tablet 3tabs TABLET Oral 3 Times Daily Indication: constipation SatOct 24 00:00:00 EST 2023Aug 31 08:40:00 EST 2023 oxyBUTYnin chloride 5 mg tablet 1 Tablet Oral 2 Times Daily Indication: bladder SatAug 15 00:00:00 EST 2022Sep 13 00:00:00 EST 2023 docusate sodium 50 mg/5 mL oral liquid 300 Milligram Oral 3 Times Daily Indication: constipation SatAug 15 00:00:00 EST 2022Oct 24 10:36:00 EST 2023 Oxygen 2L Inhalation PRN Indication: SOA SatJul 22 00:00:00 EDT 2022Sep 13 00:00:00 EST 2023 aspirin 325 mg tablet 1tab TABLET Oral E very 1 Day Indication: blood thinner SatJul 22 00:00:00 EDT 2022Sep 13 00:00:00 EST 2023 atorvastatin 20 mg tablet 1tab TABLET Or al Hour Of Sleep Indication: cholesterol SatJul 22 00:00:00 EDT 2022Aug 15 16:15:00 EST 2022 baclofen 10 mg tablet 1tab TABLET Oral 3 Times Daily Indication: spasms SatJul 22 00:00:00 EDT 2022Sep 13 00:00:00 EST 2023 Dulcolax (bisacodyl) 5 mg tablet,delayed release 2tabs TABLET, DELAYED RELEASE (ENTERIC COATED) Oral Every 1 Day Indication: constipation SatJul 22 00:00:00 EDT 2022Sep 13 00:00:00 EST 2023 carvediloL 3.125 mg tablet 1tab TABLET O ral 2 Times Daily Indication: HTN SatJul 22 00:00:00 EDT 2022Sep 13 00:00:00 EST 2023 cilostazoL 50 mg tablet 1tab TABLET Oral 2 Times Daily Indication: for circulation/vascular disease SatJul 22 00:00:00 EDT 2022Sep 13 00:00:00 EST 2023 citalopram 20 mg tablet 1tab TABLET Oral Every 1 Day Indication: depression SatJul 22 00:00:00 EDT 2022Sep 13 00:00:00 EST 2023 docusate sodium 100 mg capsule 1tab CAPSULE Oral 2 Times Daily Indication: bowels SatJul 22 00:00:00 EDT 2022Aug 15 16:15:00 EST 2022 Pepcid 20 mg tablet 1tab TABLET Oral Rose r Of Sleep Indication: reflux SatJul 22 00:00:00 EDT 2022Sep 13 00:00:00 EST 2023 Flonase 50 mcg/actuation nasal spray,suspension 2sprays SPRAY, SUSPENSION Intranasal Hour Of Sleep Indication: allergies SatJul 22 00:00:00 EDT 2022Sep 13 00:00:00 EST 2023 Lasix 40 mg tablet 1tab TABLET Oral Liz ry 1 Day Indication: hx edema SatJul 22 00:00:00 EDT 2022 Kayce Aug 15 16:15:00 EST 2022 gabapentin 600 mg tablet 1tab TABLET Ora l 3 Times Daily Indication: pain SatJul 22 00:00:00 EDT 2022Aug 31 08:39:00 EST 2023 levothyroxine 150 mcg tablet 1tab TABLET Oral Every 1 Day Indication: hypothyroid SatJul 22 00:00:00 EDT 2022Sep 13 00:00:00 EST 2023 mirtazapine 30 mg tablet 1tab TABLET Ora l Hour Of Sleep Indication: insomnia SatJul 22 00:00:00 EDT 2022 [facility] May 14 10:17:00 EDT 2023 Linzess 290 mcg capsule 1tab CAPSULE Ora l Every 1 Day Indication: severe chronic constipation SatJul 22 00:00:00 EDT 2022Sep 13 00:00:00 EST 2023 Ativan 0.5 mg tablet 1tab TABLET Oral 2 Times Daily Indication: anxiety SatJul 22 00:00:00 EDT 2022Sep 13 00:00:00 EST 2023 Citrate of Magnesia oral 1 bottle SOLUTI ON, ORAL Oral Every 3 Days Indication: Routine NOT PRN for severe constipation SatJul 22 00:00:00 EDT 2022Sep 13 00:00:00 EST 2023 MS Contin 30 mg tablet,extended release 1tab TABLET, EXTENDED RELEASE Oral Every 1 Day Indication: pain SatJul 22 00:00:00 EDT 2022Sep 13 00:00:00 EST 2023 oxyBUTYnin chloride ER 5 mg tablet,extended release 24 hr 1tab TABLET, EXTENDED RELEASE 24 HR Oral Every 1 Day Indication: over active bladder SatJul 22 00:00:00 EDT 2022Aug 31 08:39:00 EST 2023 pentoxifylline ER 400 mg tablet,extended release 1tab TABLET, EXTENDED RELEASE Oral 3 Times Daily Indication: for circulation, artery disease SatJul 22 00:00:00 EDT 2022Sep 13 00:00:00 EST 2023 potassium chloride ER 20 mEq tablet,extended release 1tab TABLET, EXTENDED RELEASE Oral Every 1 Day Indication: on Lasix. Uses for supplement SatJul 22 00:00:00 EDT 2022Aug 15 16:15:00 EST 2022 Senexon-S 8.6 mg-50 mg tablet 1tab TABLET Oral 3 Times Daily Indication: constipation SatJul 22 00:00:00 EDT 2022u Oct 24 10:36:00 EST 2023 traZODone 100 mg tablet 1tab TABLET Oral Hour Of Sleep Indication: insomnia SatJul 22 00:00:00 EDT 2022Sep 13:00:00 EST 2023 Tylenol Extra Strength 500 mg tablet 1tab TABLET Oral PRN Every 4 Hours Indication: pain fever SatJul 22 00:00:00 EDT 2022Sep 13 00:00:00 EST 2023 albuterol sulfate HFA 90 mcg/actuation aerosol inhaler 2 puffs HFA AEROSOL WITH ADAPTER (GRAM) Inhalation PRN Every 6 Hours Indication: wheezing SOA SatJul 22 00:00:00 EDT 2022Sep 13 00:00:00 EST 2023 Dulcolax (bisacodyl) 5 mg tablet,delayed release 2tabs TABLET, DELAYED RELEASE (ENTERIC COATED) Oral PRN 1 Time Daily Indication: constipation SatJul 22 00:00:00 EDT 2022Sep 13 00:00:00 EST 2023 Dulcolax (bisacodyl) 10 mg rectal suppository 1supp SUPPOSITORY, RECTAL Rectal PRN 1 Time Daily Indication: constipation SatJul 22 00:00:00 EDT 2022Sep 13 00:00:00 EST 2023 Milk of Magnesia 400 mg/5 mL oral suspension 30ml SUSPENSION, ORAL (FINAL DOSE FORM) Oral PRN 1 Time Daily Indication: constipation SatJul 22 00:00:00 EDT 2022Sep 13 00:00:00 EST 2023 pseudoephedrine 30 mg tablet 1tab TABLET Oral PRN Every 6 Hours Indication: chronic sinusitis/congestion SatJul 22 00:00:00 EDT 2022Sep 13 00:00:00 EST 2023 LORazepam 0.5 mg tablet 1tab TABLET Oral PRN Every 12 Hours Indication: for anxiety x 14 days SatJul 22 00:00:00 EDT 2022Aug 31 08:40:00 EST 2023 Bactrim DS 800 mg-160 mg tablet 1 tablet TABLET Oral 2 Times Daily for 10 Days Indication: URI/sinus infection Kayce Sep 00:00:00 T 2019 Sat Sep 23:59:00 2019 Sudafed 30 mg tablet 30mg TABLET Oral 2 Times Daily for 7 Days Indication: congestion/URI Kayce Jun 16 00:00:00 T 2019Jun 22 23:59:00 2019 Levaquin 500 mg tablet 500mg TABLET Oral Every 1 Day for 7 Days Indication: URI SatMay 19 00:00:00 2019May 25 23:59:00 2019 Augmentin 875 mg-125 mg tablet 1 tablet TABLET Oral 2 Times Daily for 10 Days Indication: sinus infection Take for 10 days SatApr 25 00:00:00 2019May 04 23:59:00 2019 Sudafed 30 mg tablet 30mg (1) TABLET Ora l 2 Times Daily for 7 Days Indication: nasal congestion/infection x 7 days SatApr 25 00:00:00 2019May 01 23:59:00 2019 Dulcolax (bisacodyl) 10 mg rectal suppository 1 SUPPOSITORY, RECTAL Rectal PRN 1 Time Daily Indication: constipation SatMar 30 00:00:00 2019Jul 29 00:00:00 2019 ascorbic acid (vitamin C) 1,000 mg tablet 1 TABLET Oral Every 1 Day Indication: supplement SatMar 30 00:00:00 2019Jul 29 00:00:00 2019 levothyroxine 125 mcg tablet 1 tablet TABLET Oral Every 1 Day Indication: thyroid Take 125 mcg of Levothyroxine (125 mcg tablet) by mouth 1 x Day as Directed. SatFebruary 11 00:00:00 2019Jul 29 00:00:00 2019 Milk of Magnesia 400 mg/5 mL oral suspension 30 ml SUSPENSION, ORAL (FINAL DOSE FORM) Oral PRN Every 1 Day Indication: constipation Take 30 mL of Milk of Magnesia (800 mg/5 mL suspension) by mouth 1 x Day as Needed. SatNov 19 00:00:00 2019Jul 29:00:00 2019 Oxygen-Air Delivery Systems 3L Device Or al PRN Indication: SOA Deliver 3 liters of Oxygen-Air Delivery Systems (Device) by pharmacy to patient via nasal cannula as Needed. SatOct 28 00:00:00 2019Jul 29:00:00 2019 senna 8.6 mg tablet 8.6 Tablet 2 Tablet Oral 3 Times Daily Indication: constipation Take 17.2 mg of Senna (8.6 mg tablet) by mouth 3 x Day. SatOct 09:00:00 2019Jul 29:00:00 2019 Dulcolax (bisacodyl) 5 mg tablet,delayed release 1 tablet tablet,delayed release (DR/EC) Oral Every 1 Day Indication: constipation Take 10 mg of Dulcolax (bisacodyl) (Dulcolax (bisacodyl) 5 mg tablet,delayed release) by mouth 1 x Day. and repeat daily PRN X 1 dose SatOct 09:00:2019Jul 29:00:00 2019 Pepcid 1 Tablet Tablet Oral Every 1 Day Indication: stomach Take 40 mg of Pepcid (40 mg tablet) by mouth 1 x Day. SatOct 09:00:2019Jul 29:00:00 2019 Saline Mist 0.65 % nasal spray aerosol 1 aerosol,spray aerosol,spray Oral PRN Every 4 Hours Indication: nasal congestion Inhale 1 aerosol,spray of Saline Nasal (0 Puffs) into each nostril Q 4 hrs as Needed. SatSep 25:00:2018Jul 29:00:00 2019 ZyrTEC 10 mg capsule 1 Tablet CAPSULE Or al 1 Time Daily Indication: allergies Take 10 mg of Zyrtec (10 mg tablet) by mouth 1 x Day. SatSep 18::2018Jul 29:00:00 2019 morphine 15 mg immediate release tablet 0.5 Tablet Tablet Oral PRN 3 Times Daily Indication: pain Take 7.5 mg of Morphine (1/2 of 15 mg immediate release tablet) by mouth 3 x Day as Needed. SatSep 01 00:00:00 2018Jul 29:00:00 2019 Stool Softener 100 mg capsule 3 Capsules CAPSULE Oral 2 Times Daily Indication: constipation Take 300 mg of Docusate Sodium (100 mg capsule) by mouth 2 x Day. SatAug 20 00:00:00 2018Jul 29 00:00:00 2019 Silvadene 1 % topical cream 1 Cream Crea m Topical 3 Times Weekly Indication: wound care Apply 1 application of Silvadene (1 % Cream) topically Other. to right heal every 3 days with dressing change SatAug 20 00:00:00 2018Jul 29 00:00:00 2019 trolamine salicylate 10 % topical cream 1 Cream Cream Topical 3 Times Daily Indication: pain due to contractures Apply Trolamine Salicylate (10 % Cream) topically 3 x Day. to wrists for pain related to contractures SatJul 27 00:00:00 EDT 2018Jul 29 00:00:00 2019 meloxicam 15 mg tablet 1Tablet Tablet Or al Every 1 Day Indication: pain Take 15 mg of Meloxicam (1 Tablet) by mouth 1 x Day as Needed. SatMay 12 00:00:00 EDT 2018Jul 29 00:00:00 2019 morphine ER 30 mg tablet,extended release 1 Tablet Tablet Extended Release Oral Hour Of Sleep Indication: pain Take 30 mg of Morphine (1 Tablet Extended Release) by mouth At bedtime. SatApr 22 00:00:00 2018Jul 29 00:00:00 2019 Artificial Tears (glycerin-peg) 1 %-0.3 % eye drops 1.00 Drops DROPS Oral 2 Times Daily Indication: dry eyes Instill 1.00 drop of Artificial Tears (glycerin) (Artificial Tears (glycerin) eye drops) into both eyes as directed 2 x Day. SatApr 15 00:00:00 2018Jul 29 00:00:00 2019 atorvastatin 20 mg tablet 1 Tablet Table t Oral Hour Of Sleep Indication: high cholesterol Take 20 mg of Atorvastatin (1 Tablet) by mouth At bedtime. SatApr 15 00:00:00 2018Jul 29 00:00:00 2019 fluticasone propionate 50 mcg/actuation nasal spray,suspension 1 spray spray,suspension Oral Hour Of Sleep Indication: allergies Inhale 100 mcg of Fluticasone (50 mcg/actuation spray,suspension) into both nares At bedtime as Directed. SatApr 15 00:00:2018Jul 29 00:00:00 2019 multivitamin capsule 1 Tablet Tablet Ora l Every 1 Day Indication: supplement Take 1 tablet of Multivitamin (1 Tablet) by mouth 1 x Day SatApr 15 00:00:2018Jul 29 00:00:2019 aspirin 325 mg tablet 1 Tablet TABLET Or al Every 1 Day Indication: Anticoagulant Take 325 mg of Aspirin (1 Tablet) by mouth 1 x Day. [facility] Apr 11:2018Jul 29 00:00:2019 acetaminophen 500 mg tablet 1 Tablet Tab let Oral PRN Every 4 Hours Indication: mild pain or fever Take 500 mg of Acetaminophen (1 Tablet) by mouth Q 4 hrs as Needed. SatApr 11::2018Jul 29 00:00:2019 baclofen 10 mg tablet 1 Tablet Tablet Or al 3 Times Daily Indication: spasms/pain Take 10 mg of Baclofen (1 Tablet) by mouth 3 x Day. [facility] Apr 11:2018Jul 29 00:00:00 2019 carvediloL 12.5 mg tablet 1 Tablet Table t Oral 2 Times Daily Indication: htn Take 12.5 mg of Carvedilol (1 Tablet) by mouth 2 x Day. SatApr 11::2018Jul 29 00:00:2019 citalopram 20 mg tablet 1 tablet TABLET Oral Every 1 Day Indication: depression Take 20 mg of Citalopram (1 Tablet) by mouth 1 x Day. SatApr 11::2018Jul 29 00:00:2019 furosemide 40 mg tablet 1 tablet Tablet Oral 2 Times Daily Indication: edema Take 40 mg of Furosemide (1 Tablet) by mouth 2 x Day. SatApr 11::2018Jul 29 00:00:00 2019 gabapentin 600 mg tablet 600 Tablet 2 Tablet Oral 3 Times Daily Indication: pain/hemiplegia Take 1200 mg of Gabapentin (2 Tablet) by mouth 3 x Day as Directed. [facility] Apr 11::2018Jul 29 00:00:00 2019 loratadine 10 mg tablet 1 Tablet Tablet Oral Every 1 Day Indication: allergies Take 10 mg of Loratadine (1 Tablet) by mouth 1 x Day as Directed. [facility] Apr 11 00:00:00 2018Jul 29 00:00:00 2019 LORazepam 0.5 mg tablet 1 Tablet TABLET Oral 3 Times Daily Indication: anxiety Take 0.5 mg of Lorazepam (1 Tablet) by mouth 3 x Day. [facility] Apr 11 00:00:00 2018Jul 29 00:00:00 2019 oxybutynin chloride 5 mg tablet 1 Tablet Tablet Oral Every 1 Day Indication: OAB Take 5 mg of Oxybutynin Chloride (1 Tablet) by mouth 1 x Day. [facility] Apr 11 00:00:00 2018Jul 29 00:00:00 2019 pentoxifylline ER 400 mg tablet,extended release 1 Tablet Tablet Extended Release Oral 3 Times Daily Indication: peripheral/venous insufficiency Take 400 mg of Pentoxifylline (1 Tablet Extended Release) by mouth 3 x Day. [facility] Apr 11:00:00 2018Jul 29 00:00:00 2019 potassium chloride ER 10 mEq tablet,extended release(part/cryst) 1 tablet tablet,ER particles/crystals Oral Every 1 Day Indication: supplement Take 10 mEq of Potassium Chloride (1 tablet,ER particles/crystals) by mouth 1 x Day. [facility] Apr 11 00:00:2018Jul 29 00:00:00 2019 traZODone 100 mg tablet 1 tablet TABLET Oral Hour Of Sleep Indication: sleep Trazodone Take 100 mg of Trazodone (1 Tablet) by mouth At bedtime as Needed. SatDec 31 00:00:00 2017Jul 29 00:00:00 2019 Treatment Plan Problems No Known Problems Vital Signs Vital Sign Measurement Date Systolic blood pressure 120 mm[Hg] SatJun 15 12:15:00 2023 Diastolic blood pressure 80 mm[Hg] SatJun 15 12:15:00 2023 Respiratory rate 20 /min SatJun 15 12:1 5:00 2023 Heart rate 80 /min SatJun 15 12:15 :00 2023 Respiratory rate 16 /min SatJul 27 05:5 5:00 2023 Heart rate 80 /min SatJul 27 05:55 :00 2023 Systolic blood pressure 120 mm[Hg] SatJul 14 05:00:00 2023 Diastolic blood pressure 78 mm[Hg] SatJul 14 05:00:00 EDT 2023 Respiratory rate 18 /min SatJul 14 05:0 0:00 EDT 2023 Heart rate 72 /min SatJul 14 05:00 :00 EDT 2023 Systolic blood pressure 122 mm[Hg] SatJul 21 09:15:00 EDT 2023 Diastolic blood pressure 70 mm[Hg] SatJul 21 09:15:00 EDT 2023 Respiratory rate 18 /min SatJul 21 09:1 5:00 EDT 2023 Heart rate 68 /min SatJul 21 09:15 :00 EDT 2023 Systolic blood pressure 118 mm[Hg] SatJul 08 04:35:00 EDT 2023 Diastolic blood pressure 80 mm[Hg] SatJul 08 04:35:00 EDT 2023 Respiratory rate 20 /min SatJul 08 04:3 5:00 EDT 2023 Heart rate 80 /min SatJul 08 04:35 :00 EDT 2023 Heart rate 71 /min SatAug 13 09:00 :00 EST 2023 Respiratory rate 12 /min SatAug 26 09:2 0:00 EST 2023 Heart rate 98 /min SatAug 26 09:20 :00 EST 2023 Respiratory rate 16 /min SatAug 18 08:1 5:00 EST 2023 Heart rate 88 /min SatAug 18 08:15 :00 EST 2023 Heart rate 93 /min SatSep 10 07:00 :00 EST 2023 Heart rate 83 /min SatSep 02 06:00 :00 EST 2023 Body weight 93.4 [lb_av] SatJul 22 09:30 :00 EDT 2022 Systolic blood pressure 123 mm[Hg] SatJul 22 09:30:00 EDT 2022 Diastolic blood pressure 95 mm[Hg] SatJul 22 09:30:00 EDT 2022 Heart rate 80 /min SatJul 22 09:30 :00 EDT 2022 Systolic blood pressure 120 mm[Hg] SatMay 26 05:30:00 EDT 2023 Diastolic blood pressure 78 mm[Hg] SatMay 26 05:30:00 EDT 2023 Respiratory rate 16 /min SatMay 26 05:3 0:00 EDT 2023 Body temperature 97.7 [degF] SatMay 26 05:3 0:00 EDT 2023 Oxygen saturation in Arteria l blood by Pulse oximetry 97 % SatMay 26 05:30:00 EDT 2023 Heart rate 68 /min SatMay 26 05:30 :00 EDT 2023 Respiratory rate 12 /min Jun 02 11:4 5:00 EDT 2023 Heart rate 90 /min [facility] Jun 02 11:45 :00 EDT 2023 Systolic blood pressure 120 mm[Hg] [facility] 11:45:00 EDT 2023 Diastolic blood pressure 80 mm[Hg] [facility] 11:45:00 EDT 2023 Respiratory rate 20 /min [facility] 11:4 5:00 EDT 2023 Heart rate 94 /min [facility] 11:45 :00 EDT 2023 Respiratory rate 20 /min [facility] 05:4 5:00 EDT 2023 Heart rate 76 /min [facility] 05:45 :00 EDT 2023 Respiratory rate 16 /min SatMay 14 04:0 0:00 EDT 2023 Body temperature 97.7 [degF] SatMay 14 04:0 0:00 EDT 2023 Heart rate 68 /min SatMay 14 04:00 :00 EDT 2023 Respiratory rate 12 /min SatAug 06 08:2 0:00 EST 2023 Heart rate 90 /min SatAug 06 08:20 :00 EST 2023 Reason for Referral
--- OUTSIDE RECORDS SUMMARY | 2025-05-12 07:00 | XMS_ITS | Encounter Summary ---
Author Organization [email or web address] ([place], [place], [place], [place]) Address [address] [place] [address] Care Team Providers Care Hogshead Head Matcher Name Role Phone Unavailable Primary Care Provider Unavailabl e Encounter Details Date Type Department Care Team (Late st Contact Info) Description 06/06/2021 Transcribed Document [facility] Radiology [address] [place] [address] Ezra Colunga MD [address] [place] [address] Social History Tobacco Use Types Packs/Day Years Used Date Smoking Tobacco: Never Assessed Comments Unknown Sex and Gender Information Value Date Recorded Sex Assigned at Female 03/28/2022 12:10 PM CDT Legal Sex Female 7:24 PM CDT Gender Identity Female 03/28/2022 12:10 PM CDT Sexual Orientation Not on file documented as of this encounter Miscellaneous Notes * Cerner Conversion Note - Ezra Colunga MD - 06/06/2021 1:43 PM EDT Patient: GILDA JACOBS Age: 51 Years Sex: Female : 1970 Subjective No acute events overnight. Pain controlled. Dressing change today. Vital Signs T: 37 ??C TMIN: 36.8 ??C TMAX: 37.4 ??C HR: 54(Monitored) RR: 16 BP: 143/80 SpO2: 95% Physical Exam Alert and oriented to person, will respond yes/no to questions, nurse at bedside Resp: normal effort on room air RLE: warm, s/p aka-dressing c/d/i-removed. Incision c/d/i with krystian. Mepitel applied along incision, gentle compression with kerlix and yadira. Motor and sensory intact. VTE Risk Total Score VTE Prophylaxis - Surgical Aspirin 325 mg, Oral, Tab, Daily, Routine, Start 06/01/21 12:43:00 EDT, 06/01/21 12:43:00 EDT (EZRA COLUNGA) Cilostazol 50 mg, Oral, Tab, BID, Routine, Start 06/01/21 12:43:00 EDT, 06/01/21 12:43:00 EDT (EZRA COLUNGA) Sequential Compression Device Start: 06/01/21 12:13:00 EDT, Bilateral, While in Bed, to nonoperative leg ONLY, Continuous Order (EZRA COLUNGA) Assessment/Plan RLE CLI with nonhealing foot ulcer - 06/01/21 (Cristine) RT AKA - dressing changed today: mepitel along incision, compression with kerlix and yadira. Order for nursing to [facility]. - pain controlled, currently not requiring narcotics - continue asa, cilostazol, and statin - PT/OT - stable to discharge back to nursing facility from vascular standpoint. - f/u [address] Colunga/Chiqui Medina PA-C for staple removal. No further vascular surgery intervention required. Vascular surgery will sign off. Please contact on-call vascular surgeon with any questions or for re-consultation. Routine Labs - Last 24 Hours JUN 04 06:10 138 108 L 6 / 89 4.1 24 L 0.30 \ No qualifying data available. Imaging Results (Last 24 Hours) No Radiology Results Found Allergies No Known Medication Allergies documented in this encounter Plan of Treatment Not on file documented as of this encounter Visit Diagnoses Not on filedocumented in this encounter
--- OUTSIDE RECORDS SUMMARY | 2025-05-12 07:00 | XMS_ITS | Encounter Summary ---
Author Organization [facility] [employer] [facility] ([place], [place], [place], [place]) Address [address] [place] [address] Care Team Providers Care Blood Bank Order Control Clerk Name Role Phone Unavailable Primary Care Provider Unavailabl e Encounter Details Date Type Department Care Team (Late st Contact Info) Description 06/03/2021 Transcribed Document [facility] Family Medicine [address] [place] [address] ProviderElyssa MD [address] [place] [address] Social History Tobacco Use Types Packs/Day Years Used Date Smoking Tobacco: Never Assessed Comments Unknown Sex and Gender Information Value Date Recorded Sex Assigned at Female 03/28/2022 12:10 PM CDT Legal Sex Female 7:24 PM CDT Gender Identity Female 03/28/2022 12:10 PM CDT Sexual Orientation Not on file documented as of this encounter Miscellaneous Notes * Cerner Conversion Note - Historical ProviderMD - 06/03/2021 2:00 AM CDT Affiliate Marketing Coordinator Details Entered On: 06/03/2021 1:23 EDT Performed On: 06/03/2021 2:00 EDT by Eva Venegas V RN Order Details Transport Mode Order Detail : Bed (including specialty) Isolation Precautions Order Detail : Standard Precautions Order Detail : 0 IV Order Detail : 1 Oxygen Order Detail : 1 Nurse Collect Order Detail : 0 Lift/Transfer : Maximal assist Central Line Order Detail : No Room Service : Not Appropriate Arterial Line : No Patient Needs Meds Crushed/Liquid : No Eva Venegas V, RN - 06/03/2021 1:23 EDT documented in this encounter Plan of Treatment Not on file documented as of this encounter Visit Diagnoses Not on filedocumented in this encounter
--- OUTSIDE RECORDS SUMMARY | 2025-05-12 07:00 | XMS_ITS | Encounter Summary ---
Author Organization [employer] ([place], [place], [place], [place]) Address [address] [place] [address] Care Team Providers Care Wheelchair Driver Name Role Phone Unavailable Primary Care Provider Unavailabl e Encounter Details Date Type Department Care Team (Late st Contact Info) Description 06/03/2021 Transcribed Document [facility] [place] [facility] [address] [place] [address] ProviderEylssa MD [address] [place] [address] Social History Tobacco Use Types [...] Conversion Note - Historical ProviderMD - 06/03/2021 5:00 AM CDT Chart Check - Review Order Profile Entered On: 06/03/2021 6:22 EDT Performed On: 06/03/2021 5:00 EDT by Eva Venegas V RN Chart Check Powerplans Initiated/Discontinued as Appropriate : Yes All Active Orders Reviewed : Yes Eva Venegas V RN - 06/03/2021 6:22 EDT documented in this encounter Plan of Treatment Not on file documented as of this encounter Visit Diagnoses Not on filedocumented in this encounter
--- OUTSIDE RECORDS SUMMARY | 2025-05-12 07:00 | XMS_ITS | Encounter Summary ---
Author Organization [employer] ([place], [place], [place], [place]) Address [address] [place] [address] Care Team Providers Care Power Generation Technician Name Role Phone Unavailable Primary Care Provider Unavailabl e Encounter Details Date Type Department Care Team (Late st Contact Info) Description 06/02/2021 Transcribed Document [facility] Counts include 234 beds at the [facility] [place] [address] ProviderElyssa MD [address] [place] [address] Social History Tobacco Use Types [...] Cerner Conversion Note - Historical ProviderMD - 06/02/2021 9:08 AM CDT UM Authorization Entered On: 06/02/2021 9:08 EDT Performed On: 06/02/2021 9:08 EDT by FRANK BOYCE RN-Utilization Review Primary Insurance Authorization Authorization and Policy Numbers : Insurance 1 Health Plan: MEDICARE Policy Number: [id number] Authorization Number: Insurance 2 Health Plan: MEDICAID QMB Policy Number: [id number] Authorization Number: Insurance Primary Name : MEDICARE Policy Number: [id number] Authorized Service Begin Date-Primary : 06/01/2021 EDT Historical Authorization Comments-Primary : No Authorization Comments Found FRANK BOYCE RN-Utilization Review - 06/02/2021 9:08 EDT documented in this encounter Plan of Treatment Not on file documented as of this encounter Visit Diagnoses Not on filedocumented in this encounter
--- OUTSIDE RECORDS SUMMARY | 2025-05-12 07:00 | XMS_ITS | Encounter Summary ---
Author Organization [employer] ([place], [place], [place], [place]) Address [address] [place] [address] Care Team Providers Care Pipe Organ Builder Name Role Phone Unavailable Primary Care Provider Unavailabl e Encounter Details Date Type Department Care Team (Late st Contact Info) Description 06/03/2021 Transcribed Document [facility] [place] [facility] [place] [address] ProviderElyssa MD [facility] [place] [address] Social History Tobacco Use Types [...] Conversion Note - Historical ProviderMD - 06/03/2021 2:14 PM CDT Patient: GILDA JACOBS Age: 51 Years Sex: Female : 1970 Subjective The patient voices no acute events overnight. She reports adequate pain control. Nursing staff report a T-max 100.6 with stable heart rates blood pressures and respiratory rates. She is saturating appropriately on 1 L of supplemental oxygen. Her morning labs have been reviewed identifying a normal white blood cell count and stable hemoglobin and hematocrit. Her creatinine is stable. Vital Signs T: 37.7 ??C TMIN: 36.7 ??C TMAX: 38.1 ??C HR: 62(Monitored) RR: 19 BP: 139/88 SpO2: 92% Oxygen Settings (Last) Oxygen Therapy Mode: Nasal cannula (06/03/21 10:45:00) Oxygen Flow Rate: 1 Liter/Min (06/03/21 10:45:00) Intake & Output Totals Last 24 Hours (7a-7a) Input Total: 2120 mL Output Total: 0 mL Balance: 2120 mL Physical Exam General: Alert and oriented, thin, BMI 20, no acute distress. Eye: PERRL, EOMI, Conjunctiva appropriate. HENT: Normocephalic, normal hearing, moist oral mucosa, O/P appropriate. Neck: Supple, non-tender, no JVD, no lymphadenopathy. Lungs: Appropriate effort, Clear to auscultation, adequate excursion. Heart: regular rate, regular rhythm, no murmur, no pedal edema. Abdomen: Soft, non-tender, non-distended, normal bowel sounds, no masses. Musculoskeletal: Diminished range of motion and decreased muscle tone with contractures, Right LE dressing and yadira wrap Skin: Skin is warm, dry and pink, no diffuse rashes. Neurologic: Awake, alert and oriented X 3, sensory intact. Psychiatric: Cooperative, appropriate mood and affect. Assessment/Plan Chronic right foot wound postop day 2 status post right AKA ???History of peripheral vascular disease noted ???Med/surg unit with routine unit vitals ???Routine pulse oximetry monitoring ???Oxygen therapy to maintain appropriate oxygen saturations ???We appreciate vascular surgery consult and intervention ???Continue with right postsurgical wound care ???Fall precautions ???Antiplatelet therapy ???Statin therapy ???Parentally administered controlled substance for comfort care Hypertension ???Routine blood pressure monitoring ???Beta-selwyn therapy ???Loop diuretic therapy Contractures with chronic pain syndrome ???Antispasmodic therapy ???Gabapentin therapy ???Morphine therapy ???Benzodiazepine therapy ???SSRI therapy Hypothyroidism ???Levothyroxine replacement therapy VTE Prophylaxis - Medical Cilostazol 50 mg, Oral, Tab, BID, Routine, Start 06/01/21 12:43:00 EDT, 06/01/21 12:43:00 EDT (STELLA ORTIZ) Sequential Compression Device Start: 06/01/21 12:13:00 EDT, Bilateral, While in Bed, to nonoperative leg ONLY, Continuous Order (STELLA ORTIZ) Medications acetaminophen, 500 mg= 1 Tab, Oral, Q4H, PRN aspirin, 325 mg= 1 Tab, Oral, Daily baclofen, 10 mg= 1 Tab, Oral, TID bisacodyl, 10 mg= 1 Supp, Rectal, Daily, PRN CeleXA, 40 mg= 2 Tab, Oral, Daily Colace, 300 mg= 3 Cap, Oral, BID, PRN Coreg, 12.5 mg= 1 Tab, Oral, BID Dilaudid, 2 mg= 1 mL, IV Push, Q1H, PRN famotidine, 40 mg= 2 Tab, Oral, Daily fluticasone 50 mcg/inh nasal spray, 100 mcg= 2 Dane, Nasal, At Bedtime furosemide, 40 mg= 1 Tab, Oral, BID gabapentin, 1200 mg= 2 Tab, Oral, TID levothyroxine, 150 mcg= 1 Tab, Oral, Daily Lipitor, 20 mg= 1 Tab, Oral, Daily loratadine, 10 mg= 1 Tab, Oral, Daily LORazepam, 0.5 mg= 1 Tab, Oral, BID, PRN morphine, 7.5 mg= 0.5 Tab, Oral, TID, PRN MS Contin, 30 mg= 1 Tab, Oral, At Bedtime, PRN [place]icewood 10 mg-325 mg oral tablet, 1 Tab, Oral, Q4H, PRN [place] 5 mg-325 mg oral tablet, 1 Tab, Oral, Q4H, PRN [place] 7.5 mg-325 mg oral tablet, 2 Tab, Oral, Q4H, PRN Normal Saline Flush, 10 mL, IntraVENous, See Comment, PRN oxybutynin, 5 mg= 1 Tab, Oral, Daily Pepcid, 20 mg= 1 Tab, Oral, BID Pletal, 50 mg= 1 Tab, Oral, BID potassium chloride extended release, 20 mEq= 1 Tab, Oral, Daily Senokot S, 2 Tab, Oral, TID Sodium Chloride 0.45% with KCl 20 mEq/L 1,000 mL, 1000 mL, IntraVENous Thera M, 1 Tab, Oral, Daily traZODone, 100 mg= 1 Tab, Oral, At Bedtime, PRN TRENtal, 400 mg= 1 Tab, Oral, TID Vitamin C, 1000 mg= 2 Tab, Oral, Daily Zofran, 4 mg= 2 mL, IV Push, Q6H, PRN Lab Results 137 138 3.4 (L) 4.0 105 104 28 30 7 (L) 8 (L) 156 * (H) 130 * (H) 6 (L) 11 0.50 (L) 0.60 >60 * >60 * >60 * >60 * 12.0 18.3 8.1 (L) 8.6 Electronically signed by Christoph, [facility] Conversion Third Grade Teacher Cerner at 01/18/2023 12:45 PM CDT documented in this encounter Plan of Treatment Not on file documented as of this encounter Visit Diagnoses Not on filedocumented in this encounter
--- OUTSIDE RECORDS SUMMARY | 2025-05-12 07:00 | XMS_ITS | Encounter Summary ---
Author Organization [employer] ([place], [place], [place], [place]) Address [address] [place] [address] Care Team Providers Care Technical Operations Manager Name Role Phone Unavailable Primary Care Provider Unavailabl e Encounter Details Date Type Department Care Team (Late st Contact Info) Description 06/04/2021 Transcribed Document [facility] [place] [address] [place] [address] ProviderElyssa MD [address] [place] [address] Social History Tobacco Use Types [...] Cerner Conversion Note - Historical ProviderMD - 06/04/2021 5:00 PM CDT Chart Check - Review Order Profile Entered On: 06/04/2021 16:00 EDT Performed On: 06/04/2021 17:00 EDT by Alanis Correa LPN Chart Check All Active Orders Reviewed : Yes Alanis Correa LPN - 06/04/2021 16:00 EDT documented in this encounter Plan of Treatment Not on file documented as of this encounter Visit Diagnoses Not on filedocumented in this encounter
--- OUTSIDE RECORDS SUMMARY | 2025-05-12 07:00 | XMS_ITS | Encounter Summary ---
Author Organization [employer] ([place], [place], [place], [place]) Address [address] [place] [address] Care Team Providers Care Bench Assembler Electrical Name Role Phone Unavailable Primary Care Provider Unavailabl e Encounter Details Date Type Department Care Team (Late st Contact Info) Description 05/31/2021 Transcribed Document [facility] Family Medicine [facility] [place] [address] ProviderElyssa MD [address] [place] [address] Social History Tobacco Use Types [...] Cerner Conversion Note - Historical ProviderMD - 05/31/2021 2:37 PM CDT PAT Adult Entered On: 05/31/2021 14:45 EDT Performed On: 05/31/2021 14:37 EDT by Eric Steiner Rn Height and Weight, Clinical Dosing Height Source : Measured Height Entry Format : [place] Height, Feet : 5 ft(Converted to: 152 cm, 60 Inch) Height, Inches : 1 Inch(Converted to: 0 ft 1 Inch, 2.54 cm) Clinical Height : 154.94 cm Weight Source : Bed scale Weight Entry Format : [place] Clinical Dosing Weight : 46.82 kg Weight, Pounds : 103 lb Body Surface Area (BSA) : 1.43 m2 Body Mass Index : 19.5 kg/m2 [place] Body Weight : 47 kg CHIP MASSEY RN - 06/01/2021 9:02 EDT Health Histories Smoking Status : Former smoker, quit more than 30 days ago Smokeless Tobacco Status : Never Implant/Device Type, Chancellor and Model : na Eric Steiner Rn - 05/31/2021 14:37 EDT Social History (As Of: 05/31/2021 14:45:32 EDT) Tobacco: Former smoker, quit more than 30 days ago Smoking Status. Never Smokeless Tobacco Status. None Smokeless Tobacco Use History. Last Used: I've been here since 2014 and she hasn't smoked . Second Hand Smoke Exposure: No. (Last Updated: 05/31/2021 14:37:12 EDT by Eric Steiner Rn) Alcohol: Alcohol Use History No. Use in Last 12 Months: No. (Last Updated: 05/31/2021 14:37:12 EDT by Eric Steiner Rn) Substance Abuse: Drug Use Hx: No. Use in Last 12 Months: No. (Last Updated: 05/31/2021 14:37:12 EDT by Eric Steiner Rn) Infectious Disease History Has the patient ever been tested for COVID-19? : Yes, Patient stated results Negative CHIP MASSEY RN - 06/01/2021 9:02 EDT Where was the COVID-19 Testing completed? : [facility] in [place], [place] Date of COVID-19 test known? : Yes Eric Steiner Rn - 05/31/2021 14:37 EDT Date of COVID-19 Test : 05/31/2021 EDT CHIP MASSEY RN - 06/01/2021 9:02 EDT Does patient have symptoms of COVID-19? : No COVID19 Screening : No Experiencing Infectious Disease Symptoms : No symptoms Physical contact outside [place] in the last 30 days : No Tuberculosis Symptoms : None Eric Steiner Rn - 05/31/2021 14:37 EDT COVID19 PreProcedure Screening Is this an Emergent or Add on Procedure? : No Date PreProcedure COVID-19 test known? : Yes Date of PreProcedure COVID-19 : 05/29/2021 EDT Has patient been isolated since the test : No Exposed to COVID19 symptoms since test? : No Eric Steiner Rn - 05/31/2021 14:37 EDT Anesthesia/Transfusion History Family History of Anesthesia Reaction : Unknown Blood Transfusion Acceptable to Patient : Yes Transfusion History : Unknown Family History of Anesthesia Reaction : Unknown Eric Steiner Rn - 05/31/2021 14:37 EDT Functional Assessment Functional ADL Evaluation Index EBN Bathing : Dependent (0) Dressing : Dependent (0) Toileting : Dependent (0) Transferring Bed or Chair : Dependent (0) Continence : Dependent (0) Feeding : Dependent (0) Eric Steiner Rn - 05/31/2021 14:37 EDT ADL Index Score : 0 Eric Steiner Rn - 05/31/2021 14:37 EDT Advance Directive Patient has Advance Directive *Q : No, patient refuses Advance Directive information Eric Steiner Rn - 05/31/2021 14:37 EDT Spiritual/Cultural Needs Any Spiritual/Cultural Needs or Requests : Yes Spiritual/Cultural Needs Comment : 06/01 Holiness Preference : Amish ([employer]) Spiritual/Cultural Needs Comment : 06/01 Eric Steiner Rn - 05/31/2021 14:37 EDT [place] Suicide Severity Rating Scale (C-SSRS) CSSRS Past Month Wish to be : No CSSRS Past Month Suicidal Thoughts : No CSSRS Lifetime Suicide Behavior : No Suicide Severity Rating Score : 0 Suicide Severity Rating : No Additional Care Required at this time Eric Steiner Rn - 05/31/2021 14:37 EDT Psychosocial History Currently in Unsafe Situation : No Eric Steiner Rn - 05/31/2021 14:37 EDT General Info Want Family/Rep/Phys Notified of Admit : No CHIP MASSEY RN - 06/01/2021 9:02 EDT Legal Guardian : Care provider Support Person/Patient Cream Gatherer : Yes Support Person/Pt Rep Name : Verenice Giles - Railway Signalling Engineer - Staff member at [facility] Emergency Contact #1 : ` Emergency Contact #1 Phone Number : ` Emergency Contact #1 Relationship : ` Emergency Contact #2 : ` Emergency Contact #2 Phone Number : ` Emergency Contact #2 Relationship : ` Information Obtained From : Care provider Information Obtained from, Name(s) : Shellie Mobley - RN at [facility] in [place], [place] Primary Language : Armenian Communication Barrier : Expressive aphasia Duralumin Metalworker Needed : No Eric Steiner Rn - 05/31/2021 14:37 EDT Meet Scale Meet Sensory Perception : Slightly limited Meet Moisture : Moist Meet Activity : Chairfast Meet Mobility : Very limited Meet Nutrition : Adequate Meet Friction and Shear : Problem Meet Score : 13 Eric Steiner Rn - 05/31/2021 14:37 EDT Sleep Apnea Risk Assmt BMI Greater Than 35 kg/m2 : No Neck Circumference Greater Than 40 cm : No STOP-BANG Sleep Apnea Risk Level Score : 3 CHIP MASSEY RN - 06/01/2021 9:05 EDT Hx of Obstructive Sleep Apnea Diagnosis : No Snore Loudly : No Tired, Fatigued, or Sleepy During Day : Yes Observed Stopping Breathing During Sleep : No Have/Are Being Treated for Hypertension : Yes Age over 50 Years Old : Yes Gender Male : No Eric Steiner Rn - 05/31/2021 14:37 EDT documented in this encounter Plan of Treatment Not on file documented as of this encounter Visit Diagnoses Not on filedocumented in this encounter
--- OUTSIDE RECORDS SUMMARY | 2025-05-12 07:00 | XMS_ITS | Encounter Summary ---
Author Organization [employer] ([place], [place], [place], [place]) Address [address] [place] [address] Care Team Providers Care Residential Child Care Counselor Name Role Phone Unavailable Primary Care Provider Unavailabl e Encounter Details Date Type Department Care Team (Late st Contact Info) Description 06/06/2021 Transcribed Document [facility] [place] [facility] [place] [address] ProviderElyssa MD [address] [place] [address] Social History Tobacco Use Types [...] Cerner Conversion Note - Historical ProviderMD - 06/06/2021 1:21 PM CDT Initial Discharge Planning Entered On: 06/06/2021 13:30 EDT Performed On: 06/06/2021 13:21 EDT by MEENU DUNNE RN - Hospital Secretary Initial Assessment I Previously Documented Living Environment : No qualifying data available. Living Situation : Other: [facility] Patient Lives With : Caregiver(s) Emergency Contact #1 : Jahaira Peck Emergency Contact #1 Emergency Contact #1 Relationship : Daughter Emergency Contact #2 : ` Emergency Contact #2 Phone Number : ` Emergency Contact #2 Relationship : ` Does Patient have PCP Listed? : No Legal Guardian : No MEENU DUNNE RN - Hospital Secretary - 06/06/2021 13:21 EDT Initial Assessment II Sensory and Motor Deficits : Other: severe contractures, wheelchair bound Current Home Treatments and Equipment : Wheelchair MEENU DUNNE RN - Hospital Secretary - 06/06/2021 13:21 EDT Discharge Needs I Anticipated Discharge Date : 06/07/2021 EDT Anticipated Discharge To, CM : Other: [facility] Current Home Treatment/Equipment : Current Home Treatment/Equipment No qualifying data available. Post Acute/Home Treatments : Wound care Documentation Status Complete : Yes MEENU DUNNE RN - Hospital Secretary - 06/06/2021 13:21 EDT Discharge Needs II Professional Skilled Services : Professional Skilled Services No qualifying data available. Needs Assistance with Transportation : Yes Patient Discharge Goal : residential facility MEENU DUNNE RN - Hospital Secretary - 06/06/2021 13:21 EDT Narrative Note Narrative Note : RRS Low Boost 3 Day 02/03 CM spoke with the patient and her daughter to explain the role of CM for discharge planning. Patient was admitted for a right AKA. She lives at [facility] and is wheelchair bound. She has her own wheelchair and CM found out it had been left in pre-op. CM has arranged for a wheelchair caliber for tomorrow at 3pm. Covid test has been ordered. Hospitalist notified. DCP: snf MEENU DUNNE RN - Hospital Secretary - 06/06/2021 13:21 EDT documented in this encounter Plan of Treatment Not on file documented as of this encounter Visit Diagnoses Not on filedocumented in this encounter
--- OUTSIDE RECORDS SUMMARY | 2025-05-12 07:00 | XMS_ITS | Encounter Summary ---
Author Organization [employer] ([place], [place], [place], [place]) Address [address] [place] [address] Care Team Providers Care Manager Credit Name Role Phone Unavailable Primary Care Provider Unavailabl e Encounter Details Date Type Department Care Team (Late st Contact Info) Description 06/01/2021 Transcribed Document [facility] [place] [facility] [place] [address] ProviderElyssa MD [facility] [place] [address] Social History Tobacco Use Types Packs/Day Years Used Date Smoking Tobacco: Never Assessed Comments Unknown Sex and Gender Information Value Date Recorded Sex Assigned at Female 03/28/2022 12:10 PM CDT Legal Sex Female 7:24 PM CDT Gender Identity Female 03/28/2022 12:10 PM CDT Sexual Orientation Not on file documented as of this encounter Miscellaneous Notes * Cerner Conversion Note - Elyssa Vazquez MD - 06/01/2021 1:08 PM CDT Patient: GILDA JACOBS Age: 51 years Sex: Female : 1970 Associated Diagnoses: None Author: JOSÉ ALICEA MD-INT Basic Information Source of history: Self, Medical record. Referral source: STELLA ORTIZ MD-ANNALISE. History limitation: Clinical condition. Primary Care Physician: Iron Goldberg Chief Complaint Non-healing right lower extremity ulceration and contracture History of Present Illness This is a 51 year old female with a past medical history as noted below who is chronically ill and resides in a nursing facility at [place]. 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 She was evaluated by Vascular Surgery as an outpatient, discovered to also have PVD, and recommended for AKA. She underwent AKA today and I was asked to admit her post-operatively. She was seen in PACU. She has limited verbal ability (this is chronic) but can nod yes and no in response to some questions. She was unable to provide a detailed medical history because of non-verbal status but I did review what fdc records came with her as well as Vascular Surgery outpatient notes. Review of Systems Constitutional: Negative. Eye: Negative. Ear/Nose/Mouth/Throat: Negative. Respiratory: Negative. Cardiovascular: Negative. Gastrointestinal: Negative. Genitourinary: Negative. Hematology/Lymphatics: Negative. Endocrine: Negative. Immunologic: Negative. Musculoskeletal: Negative except as documented in history of present illness. Integumentary: Negative. Neurologic: Negative. Psychiatric: Negative. Health Status Allergies: Allergic Reactions (Selected) No Known Medication Allergies Current medications: (Selected) Inpatient Medications Ordered CeleXA: 40 mg, Oral, Daily Colace: 300 mg, Oral, BID, PRN: Constipation Core.5 mg, Oral, BID Dilaudid: 2 mg, IV Push, Q1H, PRN: Pain (Moderate 4-6) HYDROmorphone: 0.25 mg, IV Push, Q10Min, PRN: Pain (Moderate 4-6) HYDROmorphone: 0.5 mg, IV Push, Q10Min, PRN: Pain (Severe 7-10) LORazepam: 0.5 mg, Oral, BID, PRN: Anxiety Lactated Ringers Injection intravenous solution 1,000 mL: 20 mL/Hr, IntraVENous Lipitor: 20 mg, Oral, Daily MS Contin: 30 mg, Oral, At Bedtime, PRN: Pain Susan 10 mg-325 mg oral tablet: 1 Tab, Oral, Q4H, PRN: Pain (Moderate 4-6) Susan 5 mg-325 mg oral tablet: 1 Tab, Oral, Q4H, PRN: Pain (Mild 1-3) Susan 7.5 mg-325 mg oral tablet: 2 Tab, Oral, Q4H, PRN: Pain (Severe 7-10) Normal Saline Flush: 10 mL, IntraVENous, See Comment, PRN: IV Use Pepcid: 20 mg, Oral, BID Pletal: 50 mg, Oral, BID Sodium Chloride 0.45% with KCl 20 mEq/L 1,000 mL: 125 mL/Hr, IntraVENous TRENtal: 400 mg, Oral, TID Tylenol: 650 mg, Oral, 1-Time, PRN: Temperature Vitamin C: 1,000 mg, Oral, Daily Zofran: 4 mg, IV Push, Q6H, PRN: Nausea acetaminophen: 500 mg, Oral, Q4H, PRN: Pain acetaminophen: 650 mg, Oral, 1-Time, PRN: Pain (Mild 1-3) aspirin: 325 mg, Oral, Daily baclofen: 10 mg, Oral, Daily famotidine: 40 mg, Oral, Daily fentaNYL: 25 mcg, IV Push, 1-Time, PRN: Pain (Severe 7-10) fentaNYL: 25 mcg, IV Push, Q10Min, PRN: Pain (Moderate 4-6) fluticasone 50 mcg/inh nasal spray: 100 mcg, 2 [place], Nasal, At Bedtime furosemide: 40 mg, Oral, BID gabapentin: 1,200 mg, Oral, TID levothyroxine: 150 mcg, Oral, Daily lidocaine 1% preservative-free injectable solution: 0.5 mL, IntraDermal, 1-Time loratadine: 10 mg, Oral, Daily morphine: 7.5 mg, Oral, TID, PRN: Pain ondansetron: 4 mg, IV Push, 1-Time, PRN: Nausea/Vomiting potassium chloride extended release: 20 mEq, Oral, Daily traZODone: 10 mg, Oral, At Bedtime, PRN: Insomnia Incomplete Ditropan XL 5 mg/24 hours oral tablet, extended release: 5 mg, 1 Tab, Oral, Daily Dulcolax Laxative 10 mg rectal suppository: 1 Supp, Rectal, Daily, PRN: Constipation ICaps AREDS oral tablet: 1 Tab, Oral, Daily Senokot S 50 mg-8.6 mg oral tablet: 2 Tab, Oral, TID Documented Medications Documented CeleXA 40 mg oral tablet: 1 Tab, Oral, Daily, 0 Refill(s) Colace 100 mg oral capsule: 3 Cap, Oral, BID, PRN: as needed for constipation, 20 Cap, 0 Refill(s) Coreg 12.5 mg oral tablet: 1 Tab, Oral, BID, 180 Tab, 0 Refill(s) Ditropan XL 5 mg/24 hours oral tablet, extended release: 1 Tab, Oral, Daily, 0 Refill(s) Dulcolax Laxative 10 mg rectal suppository: Supp, Rectal, Daily, PRN: as needed for constipation, 0 Refill(s) ICaps AREDS oral tablet: 1 Tab, Oral, Daily, 30 Tab, 0 Refill(s) LORazepam 0.5 mg oral tablet: 1 Tab, Oral, BID, PRN: as needed for anxiety, 0 Refill(s) Lipitor 20 mg oral tablet: 1 Tab, Oral, Daily, 0 Refill(s) MS Contin 30 mg oral tablet, extended release: 1 Tab, Oral, At Bedtime, PRN: Pain, 0 Refill(s) Pletal: 50 mg, Oral, BID, 0 Refill(s) Senokot S 50 mg-8.6 mg oral tablet: 2 Tab, Oral, TID, 30 Tab, 0 Refill(s) TRENtal: 400 mg, Oral, TID, 0 Refill(s) Tylenol Extra Strength 500 mg oral tablet: 1 Tab, Oral, Q4H, PRN: as needed for pain, 24 Tab, 0 Refill(s) Vitamin C 500 mg oral tablet: 2 Tab, Oral, Daily, until wound heals, 0 Refill(s) aspirin 325 mg oral tablet: 1 Tab, Oral, Daily, 0 Refill(s) baclofen 10 mg oral tablet: 1 Tab, Oral, Daily, 90 Tab, 0 Refill(s) cetirizine 10 mg oral tablet: 1 Tab, Oral, Daily, 0 Refill(s) famotidine 40 mg oral tablet: 1 Tab, Oral, Daily, 60 Tab, 0 Refill(s) fluticasone 50 mcg/inh nasal spray: 2 [place], Nasal, At Bedtime, 16 Gram, 0 Refill(s) furosemide 40 mg oral tablet: 1 Tab, Oral, BID, 0 Refill(s) gabapentin 600 mg oral tablet: 2 Tab, Oral, TID, 90 Tab, 0 Refill(s) levothyroxine 150 mcg (0.15 mg) oral tablet: 1 Tab, Oral, Daily, 60 Tab, 0 Refill(s) morphine: 15 mg, Oral, TID, 1/2 tab, PRN: as needed for pain, 0 Refill(s) potassium chloride extended release: 20 mEq, Oral, Daily, 0 Refill(s) traZODone: 10 mg, Oral, At Bedtime, PRN: Insomnia, 0 Refill(s) Histories Past Medical History: 1. PVD 2. Multiple sclerosis 3. Hyperthyroidism 4. Migraine headaches 5. Hypertension 6. Hyperlipidemia 7. Depression 8. History of CVA 9. Limited verbal ability Family History: Unknown, not documented in her records, and unobtainable from the patient due to essentially non-verbal status. Procedure history: Unknown, not documented in her records, and unobtainable from the patient due to essentially non-verbal status. Social History She resides in a fdc. I do not know about any history of tobacco or alcohol use.. Physical Examination General: No acute distress, Awake and alert, seems oriented but difficult to asess given non-verbal status. Eye: Pupils are equal, round and reactive to light, Extraocular movements are intact, Normal conjunctiva. HENT: Normocephalic, Normal hearing, Oral mucosa is moist. Neck: Non-tender, Appears to have chronic neck contracture. Respiratory: Lungs are clear to auscultation, Respirations are non-labored, Breath sounds are equal, Symmetrical chest wall expansion, No chest wall tenderness. Cardiovascular: Normal rate, Regular rhythm, No murmur, No gallop, No edema. Gastrointestinal: Soft, Non-tender, Non-distended, Normal bowel sounds. Musculoskeletal: No tenderness, No swelling, Right AKA, Obvious kyphosis of spine. Integumentary: Warm, Dry, No rash, Dressing in place to right AKA, Not intact. Neurologic: Alert, Oriented, Normal sensory, Normal motor function, Cranial Nerves II-XII are grossly intact, Gag reflex normal, Normal deep tendon reflexes, Non-verbal. Psychiatric: Cooperative, Appropriate mood & affect. Review / Management Results review: Labs (Last four charted values) WBC 9.7 (JUN 01) HB 12.1 (JUN 01) HCT 37.7 (JUN 01) Plt 271 (JUN 01) Na 138 (JUN 01) K 4.0 (JUN 01) Cl 104 (JUN 01) CO2 30 (JUN 01) BUN 11 (JUN 01) Cr 0.60 (JUN 01) Glu R H 130 (JUN 01) Ca 8.6 (JUN 01) . Documentation reviewed: Records from referring physician, Reviewed prior records. Condition: Guarded. Impression and Plan 1. Non-healing right lower extremity ulceration, contracture, and underlying PVD: s/p right AKA by Vascular Surgery, post-operative management as per them. 2. Multiple sclerosis: She does not appear to be on chronic medications for this currently. 3. History of hyperthyroidism, now apparent hypothyroidism: Resume levothyroxine 150 mcg daily as per fdc records. 4. Migraine headaches 5. Hypertension: Resume coreg. 6. Hyperlipidemia: Resume atorvastatin. 7. Depression/anxiety: Resume ativan 0.5 mg BID for anxiety. Resume trazodone at bedtime and citalopram. 8. History of CVA: Resume statin, asa. 9. Limited verbal ability 10. Chronic pain syndrome: On morphine sulfate 30 mg at bedtime and 7.5 mg TID as needed per fdc documents. The patient is high risk. documented in this encounter Plan of Treatment Not on file documented as of this encounter Visit Diagnoses Not on filedocumented in this encounter
--- OUTSIDE RECORDS SUMMARY | 2025-05-12 07:00 | XMS_ITS | Encounter Summary ---
Author Organization [employer] ([place], [place], [place], [place]) Address [address] [place] [address] Care Team Providers Care Rolfer Name Role Phone Unavailable Primary Care Provider Unavailabl e Encounter Details Date Type Department Care Team (Late st Contact Info) Description 06/02/2021 Transcribed Document [facility] [place] [facility] [place] [address] ProviderElyssa MD [facility] [place] [address] Social History Tobacco Use Types [...] Conversion Note - Elyssa Vazquez MD - 06/02/2021 10:24 AM CDT Patient: GILDA JACOBS Age: 51 years Sex: Female : 1970 Associated Diagnoses: None Author: JOSÉ ALICEA MD-INT Basic Information Time of exam 0820 on 06/02 The patient was resting in bed at the time of exam and in no acute distress. She had an treasury assistant at bedside feeding her breakfast. She denied pain or other complaints. Review of Systems Constitutional: No fever, No chills. Musculoskeletal: No joint pain, No muscle pain. Health Status Allergies: Allergies (1) Active Reaction No Known Medication Allergies None Documented Current medications: (Selected) Inpatient Medications Ordered CeleXA: 40 mg, Oral, Daily Colace: 300 mg, Oral, BID, PRN: Constipation Core.5 mg, Oral, BID Dilaudid: 2 mg, IV Push, Q1H, PRN: Pain (Moderate 4-6) LORazepam: 0.5 mg, Oral, BID, PRN: Anxiety Lipitor: 20 mg, Oral, Daily MS Contin: 30 mg, Oral, At Bedtime, PRN: Pain [place] 10 mg-325 mg oral tablet: 1 Tab, Oral, Q4H, PRN: Pain (Moderate 4-6) [place] 5 mg-325 mg oral tablet: 1 Tab, Oral, Q4H, PRN: Pain (Mild 1-3) [place] 7.5 mg-325 mg oral tablet: 2 Tab, Oral, Q4H, PRN: Pain (Severe 7-10) Normal Saline Flush: 10 mL, IntraVENous, See Comment, PRN: IV Use Pepcid: 20 mg, Oral, BID Pletal: 50 mg, Oral, BID Senokot S: 2 Tab, Oral, TID Sodium Chloride 0.45% with KCl 20 mEq/L 1,000 mL: 125 mL/Hr, IntraVENous TRENtal: 400 mg, Oral, TID Thera M: 1 Tab, Oral, Daily Tylenol: 650 mg, Oral, 1-Time, PRN: Temperature Vitamin C: 1,000 mg, Oral, Daily Zofran: 4 mg, IV Push, Q6H, PRN: Nausea acetaminophen: 500 mg, Oral, Q4H, PRN: Pain aspirin: 325 mg, Oral, Daily baclofen: 10 mg, Oral, TID bisacodyl: 10 mg, Rectal, Daily, PRN: Constipation famotidine: 40 mg, Oral, Daily fluticasone 50 mcg/inh nasal spray: 100 mcg, 2 [place], Nasal, At Bedtime furosemide: 40 mg, Oral, BID gabapentin: 1,200 mg, Oral, TID levothyroxine: 150 mcg, Oral, Daily loratadine: 10 mg, Oral, Daily morphine: 7.5 mg, Oral, TID, PRN: Pain oxybutynin: 5 mg, Oral, Daily potassium chloride extended release: 20 mEq, Oral, Daily traZODone: 100 mg, Oral, At Bedtime, PRN: Insomnia Documented Medications Documented CeleXA 40 mg oral [...] Refill(s) fluticasone 50 mcg/inh nasal spray: 2 [place], Nasal, At Bedtime, 16 Gram, 0 Refill(s) [...] 20 mEq, Oral, Daily, 0 Refill(s) traZODone: 100 mg, Oral, At Bedtime, PRN: Insomnia, 0 Refill(s) Problem list: Medical Allergic rhinitis / SNOMED CT 251335305 / Confirmed Anxiety disorder / SNOMED CT 334943603 / Confirmed At risk for sleep apnea / IMO 33718750 / Confirmed CVA (cerebral vascular accident) / SNOMED CT 828683947 / Confirmed Constipation / SNOMED CT 51918389 / Confirmed COVID-19 / SNOMED CT 9616086563 / Confirmed Hormone deficiency / SNOMED CT 614098936 / Confirmed Depression / SNOMED CT 64568928 / Confirmed Graves disease / SNOMED CT 251614663 / Confirmed Hemiplegia / SNOMED CT 86523430 / Confirmed HLD (hyperlipidemia) / SNOMED CT 73322080 / Confirmed HTN (hypertension) / SNOMED CT 8779512439 / Confirmed Hyperthyroidism / SNOMED CT 03989951 / Confirmed Insomnia / SNOMED CT 446676362 / Confirmed Migraine / SNOMED CT 70628681 / Confirmed 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 Multiple sclerosis / SNOMED CT 83189566 / Confirmed Contracture of muscle, unspecified site / SNOMED CT 98991238 / Confirmed Muscle weakness (generalized) / SNOMED CT 80439528 / Confirmed Dysphagia, oropharyngeal phase / SNOMED CT 940036699 / Confirmed Overactive bladder / SNOMED CT 9057717790 / Confirmed Peripheral venous insufficiency / SNOMED CT 54286123 / Confirmed Thyrotoxicosis / SNOMED CT 443000479 / Confirmed, Active Problems (23) Allergic rhinitis Anxiety disorder At risk for sleep apnea Constipation Contracture of muscle, unspecified site COVID-19 CVA (cerebral vascular accident) Depression Dysphagia, oropharyngeal phase Graves disease Hemiplegia HLD (hyperlipidemia) Hormone deficiency HTN (hypertension) Hyperthyroidism Insomnia Migraine Torres torres disease Multiple sclerosis Muscle weakness (generalized) Overactive bladder Peripheral venous insufficiency Thyrotoxicosis Physical Examination VS/Measurements Vitals Signs (last 24 hrs) Last Charted Minimum Maximum Temp 98.5 (JUN 02 06:06) 98.5 (JUN 02 06:06) H 100 (JUN 01 23:16) Mon HR 84 (JUN 02 06:06) 74 (JUN 01 11:55) 95 (JUN 01 15:45) Resp Rate 16 (JUN 02 06:06) 15 (JUN 01 18:20) 20 (JUN 01 16:00) SBP H 146 (JUN 02 06:06) 113 (JUN 01 12:20) H 183 (JUN 01 14:30) DBP H 92 (JUN 02 06:06) 64 (JUN 01 11:55) H 117 (JUN 01 13:45) MAP 106 (JUN 02 06:06) 83 (JUN 01 12:05) 141 (JUN 01 14:30) SpO2 97 (JUN 02 06:06) L 90 (JUN 01 12:25) 97 (JUN 01 18:00) General: Alert and oriented, No acute distress. Eye: Pupils are equal, round and reactive to light, Extraocular movements are intact, Normal conjunctiva. HENT: Normocephalic, Oral mucosa is moist. Neck: Non-tender, Neck with chronic contracture. Respiratory: Lungs are clear to auscultation, Respirations are non-labored, Breath sounds are equal, Symmetrical chest wall expansion, No chest wall tenderness. Cardiovascular: Normal rate, Regular rhythm, No murmur, No gallop, No edema. Gastrointestinal: Soft, Non-tender, Non-distended, Normal bowel sounds. Musculoskeletal: No tenderness, No swelling, Right AKA. Integumentary: Warm, Dry, No rash, Right AKA stump with dressing in place, Not intact. Neurologic: Alert, Oriented, No focal deficits, Cranial Nerves II-XII are grossly intact, Gag reflex normal, Normal deep tendon reflexes. Psychiatric: Cooperative, Appropriate mood & affect. Review / Management Results review: Labs (Last four charted values) WBC 9.7 (JUN 02) 9.7 (JUN 01) HB 11.9 (JUN 02) 12.1 (MAY 02) HCT 37.2 (JUN 02) 37.7 (MAY 02) Plt 248 (JUN 02) 271 (JUN 01) Na 137 (JUN 02) 138 (JUN 01) K L 3.4 (JUN 02) 4.0 (JUN 01) Cl 105 (JUN 02) 104 (JUN 01) CO2 28 (JUN 02) 30 (JUN 01) BUN L 6 (JUN 02) 11 (JUN 01) Cr L 0.50 (JUN 02) 0.60 (JUN 01) Glu R H 156 (JUN 02) H 130 (JUN 01) Ca L 8.1 (JUN 02) 8.6 (JUN 01) . Impression and Plan 1. Non-healing right lower extremity ulceration, contracture, and underlying PVD: s/p right AKA 06/01 by Vascular Surgery, post-operative management as per them. 2. Multiple sclerosis: She does not appear to be on chronic medications for this currently. 3. History of hyperthyroidism, now apparent hypothyroidism: Continue levothyroxine. 4. Migraine headaches 5. Hypertension: Continue coreg. 6. Hyperlipidemia: Continue atorvastatin. 7. Depression/anxiety: Continue ativan, trazodone, and citalopram. 8. History of CVA: Resume statin, asa. 9. Limited verbal ability: She mostly nods in response to questions. 10. Chronic pain syndrome: On morphine sulfate 30 mg at bedtime and 7.5 mg TID as needed which are her chronic medications. Also on PRN norco. Her pain is controlled. Disposition: Return to nursing facility once cleared by Vascular Surgery. There are no current acute medical issues. documented in this encounter Plan of Treatment Not on file documented as of this encounter Visit Diagnoses Not on filedocumented in this encounter
--- OUTSIDE RECORDS SUMMARY | 2025-05-12 07:00 | XMS_ITS | Encounter Summary ---
Author Organization [employer] ([place], [place], [place], [place]) Address [address] [place] [address] Care Team Providers Care Wind Turbine Design Engineer Name Role Phone Unavailable Primary Care Provider Unavailabl e Encounter Details Date Type Department Care Team (Late st Contact Info) Description 06/01/2021 Transcribed Document [facility] [address] [place] [address] Ezra Colunga MD [address] [facility] [place] [address] Social History Tobacco Use Types Packs/Day Years [...] Conversion Note - Ezra Colunga MD - 06/01/2021 1:17 PM EDT Patient: GILDA JACOBS Age: 51 Years Sex: Female : 1970 *Operation Leg Amputation Above Knee, Indication for Surgery This is a 51-year-old female with history of nonambulation and bilateral knee and hip contractures. She has developed a nonhealing ulceration involving the right foot with severe pain. She has been offered an [id number] amputation as she is nonambulatory. *Preoperative Diagnosis NON HEALING RIGHT FOOT ULCER *Postoperative Diagnosis SEE MD NOTE *Surgeon(s) Primary Surgeon EZRA COLUNGA MD-ANNALISE (Surgeon/Proceduralist, First) DARIAN Valverde *Procedure Narrative Patient was taken back to the operating room placed in supine position. She had a spinal anesthesia performed. Her right leg had both hip and knee contractures. This was very challenging but it was prepped and draped in standard sterile fashion. Timeout was taken with identification of the patient and procedure. [id number] a fishmouth incision was created. The anterior compartment was divided with electrocautery. The neurovascular bundle was clamped ligated and divided. The femur was divided sharply with the use of a [employer] oscillating saw. The posterior flap was next divided sharply with a knife. The sciatic nerve was clamped ligated and divided. Irrigation was performed. Satisfactory hemostasis was present. The anterior posterior compartments were closed and approximated with interrupted Vicryl suture. Skin krystian were applied. Patient had application was Xeroform 4 x 4's Kerlix and yadira. Anesthesia MAC SYDNIE TREVINO MD-ANS (Anesthesiologist of Record) *Estimated Blood Loss Minimal *Findings Challenges due to knee contracture. Successful amputation of the right [id number] *Specimen(s) Right leg Complications None Date of Service Date/Time of Service SN - Proc - Start Time: 06/01/21 11:22:00 (06/01/21 11:35:38) documented in this encounter Plan of Treatment Not on file documented as of this encounter Visit Diagnoses Not on filedocumented in this encounter
--- OUTSIDE RECORDS SUMMARY | 2025-05-12 07:00 | XMS_ITS | Encounter Summary ---
Author Organization [employer] ([place], [place], [place], [place]) Address [address] [place] [address] Care Team Providers Care Media Arts Professor Name Role Phone Unavailable Primary Care Provider Unavailabl e Encounter Details Date Type Department Care Team (Late st Contact Info) Description 06/02/2021 Transcribed Document [facility] [place] [address] [place] [address] ProviderElyssa MD [address] [place] [address] Social History Tobacco Use Types [...] Conversion Note - Historical ProviderMD - 06/02/2021 5:00 AM CDT Chart Check - Review Order Profile Entered On: 06/02/2021 5:43 EDT Performed On: 06/02/2021 5:00 EDT by Siira Rubin NON EMP RN - INTERNATIONAL Chart Check Powerplans Initiated/Discontinued as Appropriate : Yes All Active Orders Reviewed : Yes Siria Rubin NON EMP RN - INTERNATIONAL - 06/02/2021 5:43 EDT documented in this encounter Plan of Treatment Not on file documented as of this encounter Visit Diagnoses Not on filedocumented in this encounter
--- OUTSIDE RECORDS SUMMARY | 2025-05-12 07:00 | XMS_ITS | Clinical Summary ---
Author Organization [facility] Address [address] [place] [address] Care Team Providers Care Credit Risk Review Officer Name Role Phone Unavailable Primary Care Provider Unavailabl e Social History Tobacco Use Types Packs/Day Years Used Date Smoking Tobacco: Never Assessed Abuse Screen Answer Date Recorded Unsafe at Home or Work/School Not on file Feels Threatened by Someone? Not on file 05/2023 Does Anyone Keep You from Co ntacting Others or Doint Things Outside the Home? Not on file 07/08/2023 Physical Sign of Abuse Present Not on file 1 Housing Stability Answer Date Recorded Current Living Arrangements Not on file 05/2023 Potentially Unsafe Housing Conditions Not on izzy e 07/08/2023 Family and Community Support Answer Rocky e Recorded Help with Day-to-Day Activities Not on file 07/08/2023 Lonely or Isolated Not on file 07/08/2023 Employment Answer Date Recorded Do you want help finding or keeping work or a kaitlin b? Not on file 07/08/2023 Disabilities Answer Date Recorded Concentrating, Remembering, or Making Decisions Difficulty Not on file 07/08/2023 Doing Errands Independently Difficulty Not on fi le 07/08/2023 Education Answer Date Recorded Help with school or training? Not on file Preferred Language Not on file 07/08/2023 Comments Unknown Sex and Gender Information Value Date Recorded Sex Assigned at Not on file Legal Sex Female 1:24 PM EDT Gender Identity Not on file Sexual Orientation Not on file Last Filed Vital Signs Vital Sign Reading Time Taken Comments Blood Pressure 119/61 02/04/2013 11:31 AM EDT Pulse - - Temperature - - Respiratory Rate - - Oxygen Saturation - - Inhaled Oxygen Concentration - - Weight 52.6 kg (116 lb 0.1 oz) 02/04/2013 11:31 AM EDT Height 154.9 cm (5' 1 ) 02/04/2013 11:31 AM EDT Body Mass Index 21.92 02/04/2013 11:31 AM EDT Plan of Treatment Health Maintenance Due Date Last Done Comments ANNUAL PHYSICAL 1970 Annual Gynecologic Pelvic and Breast Exam 1970 HEPATITIS C SCREENING 1970 TDAP/TD VACCINES (1 - Tdap) 01/26/1987 MAMMOGRAM 2008 COLOGUARD 01/26/2013 COLON CANCER SCREENING 5 YEAR SIGMOIDOSCOPY 01/26/2013 COLONOSCOPY 01/26/2013 COLORECTAL CANCER SCREENING 01/26/2013 CT COLONOGRAPHY 01/26/2013 FECAL OCCULT BLOOD TEST 01/26/2013 FIT Testing (1 year) 01/26/2013 Pneumococcal Vaccine 50+ (1 of 1 - PCV) 01/26/2018 ZOSTER VACCINE (1 of 2) 01/26/2018 COVID-19 Vaccine (1 - season) 2024 INFLUENZA VACCINE 06/30/2025
--- OUTSIDE RECORDS SUMMARY | 2025-05-12 07:00 | XMS_ITS | Clinical Summary ---
Author Organization [employer] ([place], [place], [place], [place]) Address [address] [place] [address] Care Team Providers Care Well Services Operator Name Role Phone Unavailable Primary Care Provider Unavailabl e Social History Tobacco Use Types Packs/Day Years Used Date Smoking Tobacco: Never Assessed Comments Unknown Sex and Gender Information Value Date Recorded Sex Assigned at Female 03/28/2022 12:10 PM CDT Legal Sex Female 7:24 PM CDT Gender Identity Female 03/28/2022 12:10 PM CDT Sexual Orientation Not on file Plan of Treatment Not on file
--- OUTSIDE RECORDS SUMMARY | 2025-05-12 07:00 | XMS_ITS | Encounter Summary ---
Author Organization [employer] ([place], [place], [place], [place]) Address [address] [place] [address] Care Team Providers Care Marine Designer Name Role Phone Unavailable Primary Care Provider Unavailabl e Encounter Details Date Type Department Care Team (Late st Contact Info) Description 05/31/2021 Transcribed Document [facility] [place] [facility] [place] [address] ProviderElyssa MD [facility] [place] [address] Social History Tobacco Use Types [...] Conversion Note - Historical ProviderMD - 05/31/2021 2:45 PM CDT Spiritual Care Assessment Entered On: 06/01/2021 8:18 EDT Performed On: 06/01/2021 7:16 EDT by ABBY BENJAMIN General Information Initial Visit : Yes Referred by : Patient Referral Reason Comment : Pre-surgery visit Ministry Provided to : Patient, Other: Caregiver Confucianist Preference : Orthodoxy ([employer]) ABBY BENJAMIN P - 06/01/2021 8:17 EDT Spiritual Assessment Spiritual Assessment Comment/Summary Points : Provided pre-surgery prayer. Caregiver present. Spirital Assessment Comment/Summary Report : SPIRITUAL ASSESSMENT COMMENT/SUMMARY No qualifying data available. ABBY BENJAMIN P - 06/01/2021 8:17 EDT Interventions Spiritual and Confucianist : Prayer shared, Spiritual/Confucianist support provided ABBY BENJAMIN - 06/01/2021 8:17 EDT documented in this encounter Plan of Treatment Not on file documented as of this encounter Visit Diagnoses Not on filedocumented in this encounter
--- OUTSIDE RECORDS SUMMARY | 2025-05-12 07:00 | XMS_ITS | Referral Summary ---
Author Organization [employer] ([place], [place], [place], [place]) Address [address] [place] [address] Care Team Providers Care Group Worker Name Role Phone Unavailable Primary Care Provider [...]
--- OUTSIDE RECORDS SUMMARY | 2025-05-12 07:00 | XMS_ITS | Encounter Summary ---
Author Organization [employer] ([place], [place], [place], [place]) Address [address] [place] [address] Care Team Providers Care Crime Scene Analyst Name Role Phone Unavailable Primary Care Provider Nanette glass Encounter Details Date Type Department Care Team (Late st Contact Info) Description 06/05/2021 Transcribed Document [facility] [place] [address] ProviderElyssa [place] [address] Social History Tobacco Use Types [...] Cerner Conversion Note - Historical ProviderMD - 06/05/2021 2:00 AM CDT Maintenance Shop Manager Details Entered On: 06/05/2021 0:35 EDT Performed On: 06/05/2021 2:00 EDT by Zaynab Morataya RN Order Details Transport Mode Order Detail : Bed (including specialty) Isolation Precautions Order Detail : Standard Precautions Order Detail : 0 IV Order Detail : 1 Oxygen Order Detail : 1 Nurse Collect Order Detail : 0 Lift/Transfer : Maximal assist Central Line Order Detail : No Room Service : Not Appropriate Arterial Line : No Patient Needs Meds Crushed/Liquid : No Zaynab Morataya RN - 06/05/2021 0:34 EDT Electronically signed by Christoph [facility] Conversion Peoplesoft Analyst Cerner at 01/18/2023 12:47 PM CDT documented in this encounter Plan of Treatment Not on file documented as of this encounter Visit Diagnoses Not on filedocumented in this encounter
--- OUTSIDE RECORDS SUMMARY | 2025-05-12 07:00 | XMS_ITS | Encounter Summary ---
Author Organization [employer] ([place], [place], [place], [place]) Address [address] [place] [address] Care Team Providers Care Braider Tender Name Role Phone Unavailable Primary Care Provider Unavailabl e Encounter Details Date Type Department Care Team (Late st Contact Info) Description 06/07/2021 Transcribed Document [facility] [place] [facility] [place] [address] ProviderElyssa MD [facility] [place] [address] Social History Tobacco Use Types [...] Cerner Conversion Note - Historical ProviderMD - 06/07/2021 4:45 PM CDT Discharge Summary, PT Entered On: 06/07/2021 16:46 EDT Performed On: 06/07/2021 16:45 EDT by MICHELINE GONSALEZ PT Discharge Summary Discharge Summary Provider Notified : Physical Therapy Reason for Discharge : Discharged from hospital Discharged to, Therapy : Unit, detention Discharge Summary Comment, PT : pt last seen 06/06 and noted to be TOTAL assist x 2 for bed mobility no goals met MICHELINE GONSALEZ, PT - 06/07/2021 16:45 EDT Short Term Goals Mobility/Bed Mobility STG PT Grid Goal #1 Activity : Supine to sit Assist : Assist, moderate Equipment : Bed, hospital, Rail, bed Date to Meet : 06/12/2021 EDT Goal Status : Not met MICHELINE GONSALEZ, PT - 06/07/2021 16:45 EDT Transfer STG Grid Goal #1 Destination : Wheelchair, standard Type : Stand Pivot Sit Assist : Assist, moderate Equipment : Belt, gait, Walker, front wheel Date to Meet : 06/12/2021 EDT Goal Status : Not met MICHELINE GONSALEZ, PT - 06/07/2021 16:45 EDT Long-Term Goals Mobility/Bed Mobility LTG PT Grid Goal #1 Activity : Supine to sit Equipment : Bed, hospital, Rail, bed Date to Meet : 06/19/2021 EDT Goal Status : Not met MICHELINE GONSALEZ, PT - 06/07/2021 16:45 EDT Transfer LTG Grid Goal #1 Destination : Wheelchair, standard Type : Stand Pivot Sit Assist : Assist, minimal Equipment : Belt, gait, Rail, bed, Walker, front wheel Date to Meet : 06/19/2021 EDT Goal Status : Not met MICHELINE GONSALEZ, PT - 06/07/2021 16:45 EDT documented in this encounter Plan of Treatment Not on file documented as of this encounter Visit Diagnoses Not on filedocumented in this encounter
--- OUTSIDE RECORDS SUMMARY | 2025-05-12 07:00 | XMS_ITS | Encounter Summary ---
Author Organization [employer] ([place], [place], [place], [place]) Address [address] [place] [address] Care Team Providers Care Dubbing Machine Operator Name Role Phone Unavailable Primary Care Provider Unavailabl e Encounter Details Date Type Department Care Team (Late st Contact Info) Description 06/05/2021 Transcribed Document [facility] [place] [facility] [address] ProviderElyssa MD [facility] [address] Social History Tobacco Use Types [...] Conversion Note - Historical ProviderMD - 06/05/2021 1:08 PM CDT Treatment Intervention, PT Entered On: 06/06/2021 16:00 EDT Performed On: 06/06/2021 15:30 EDT by CLAU VENTURA, PT General Information, PT Visit Type, PT : Treatment Note Patient Orders : Order Date Order Ordering 06/04/2021 08:34 PT Evaluation and Treatment Ordered By: SRI HAYES [facility] 06/05/2021 13:08 PT Additional Treatment Ordered By: Rush Vines PHYSICAL THERAPIST NON-EXEMPT Active Diagnoses : 06/01/2021 12:00 Atherosclerosis of [place] arteries of extremities with rest pain, unspecified extremity Therapy Diagnosis, PT : Difficulty performing functional movmenet Admission Date : 06/01/2021 16:38 Personal Devices : Personal Devices No Devices Recorded Assistive Devices : Assistive Devices No Devices Recorded Precautions in Place : Fall prevention measures CLAU VENTURA, PT - 06/06/2021 15:52 EDT General Status Patient Received Status : Supine in bed Treatment Start Time : 06/06/2021 15:19 EDT Patient Left Status : Supine in bed, RN/PCT informed, All needs met and within reach RN/PCT Informed Comment : Lizzy approved PT Treatment End Time : 06/06/2021 15:30 EDT Treatment Time : 11 Minute(s) CLAU VENTURA, PT - 06/06/2021 15:52 EDT Functional Mobility Mobility Grid Bed Scooting : Rehab Total assistance Supine to Sit : Rehab Total assistance Sit to Supine : Rehab Total assistance CLAU VENTURA, PT - 06/06/2021 15:52 EDT Gait Training/Assessment, PT Weight Bearing Status Comment : R AKA with contractures-w/c bound prior Gait Assistance Level : Unable to assess/activity not appropriate CLAU VENTURA, PT - 06/06/2021 15:52 EDT Edu Topics Physical Therapy Education Grid Balance Training : Needs reinforcement Bed Mobility Training : Needs reinforcement Role of Physical Therapy : Needs reinforcement Therapeutic Exercises : Needs reinforcement Transfer Training : Needs reinforcement Use of Assistive Device : Needs reinforcement CLAU VENTURA, PT - 06/06/2021 15:52 EDT Indication Assesessment, PT Physical Therapy Indicated : Yes CLAU VENTURA, PT - 06/06/2021 15:52 EDT Plan of Care, PT PT Tx Plan/Goals Established w Patient : Yes PT Treatments Planned : Balance training, Bed mobility training, Safety education, Therapeutic exercises, Transfer training CLAU VENTURA, PT - 06/06/2021 15:52 EDT Short Term Goals Mobility/Bed Mobility STG PT Grid Goal #1 Activity : Supine to sit Assist : Assist, moderate Equipment : Bed, hospital, Rail, bed Date to Meet : 06/12/2021 EDT Goal Status : Progressing, continue CLAU VENTURA, PT - 06/06/2021 15:52 EDT Transfer STG Grid Goal #1 Destination : Wheelchair, standard Type : Stand Pivot Sit Assist : Assist, moderate Equipment : Belt, gait, Walker, front wheel Date to Meet : 06/12/2021 EDT Goal Status : Intial Goal CLAU VENTURA, PT - 06/06/2021 15:52 EDT Correction Goals Mobility/Bed Mobility LTG PT Grid Goal #1 Activity : Supine to sit Equipment : Bed, hospital, Rail, bed Date to Meet : 06/19/2021 EDT Goal Status : Intial Goal CLAU VENTURA, PT - 06/06/2021 15:52 EDT Transfer LTG Grid Goal #1 Destination : Wheelchair, standard Type : Stand Pivot Sit Assist : Assist, minimal Equipment : Belt, gait, Rail, bed, Walker, front wheel Date to Meet : 06/19/2021 EDT Goal Status : Intial Goal CLAU VENTURA, PT - 06/06/2021 15:52 EDT Treatment Note Subjective Comment : Pt agreed to PT but difficult to understand-soft mumbling speech Patient's Response to Treatment : Pt fatigues quickly and c/o R AKA pain Additional Objective Information : Pt was total asst for supine-sit to EOB Pt with strong post lean and required total asst for static sitting balance. PT worked on gentle rocking forward/back to attempt to acheive ant pelvic tilt and then on wt shifting to elbow and back but fatigued after 2 reps with total asst to return supine and to scoot to HOB Pt declined to allow ROM L LE or R AKA stump at this time Assessment : Pt limited with contractures, poor sitting balance , limited endurance and pain with R AKA this session Plan for Treatment : cont PT as tolerated CLAU VENTURA, PT - 06/06/2021 15:52 EDT Pain Assessment Pain Scaled Used : FACES Pain Score Pre-Intervention : 4 Pain Score During-Intervention : 6 Pain Score Post-Intervention. : 4 CLAU VENTURA, PT - 06/06/2021 15:52 EDT Image 1 - Images currently included in the form version of this document have not been included in the text rendition version of the form. [place] PT Charges PT Therap. Exercise 15 min : 1 CLAU VENTURA PT - 06/06/2021 15:52 EDT documented in this encounter Plan of Treatment Not on file documented as of this encounter Visit Diagnoses Not on filedocumented in this encounter
--- OUTSIDE RECORDS SUMMARY | 2025-05-12 07:00 | XMS_ITS | Encounter Summary ---
Author Organization [employer] ([place], [place], [place], [place]) Address [address] [place] [address] Care Team Providers Care Latin Professor Name Role Phone Unavailable Primary Care Provider Nanette glass Encounter Details Date Type Department Care Team (Late st Contact Info) Description 06/06/2021 Transcribed Document [facility] [place] [facility] [place] [address] ProviderElyssa MD [facility] [place] [address] Social History Tobacco Use Types [...] Conversion Note - Historical ProviderMD - 06/06/2021 2:00 AM CDT Behavioral Scientist Details Entered On: 06/06/2021 2:04 EDT Performed On: 06/06/2021 2:00 EDT by Zaynab Morataya RN Order Details Transport Mode Order Detail : Bed (including specialty) Isolation Precautions Order Detail : Standard Precautions Order Detail : 0 IV Order Detail : 1 Oxygen Order Detail : 0 Nurse Collect Order Detail : 0 Lift/Transfer : Maximal assist Central Line Order Detail : No Room Service : Not Appropriate Arterial Line : No Patient Needs Meds Crushed/Liquid : No Zaynab Morataya RN - 06/06/2021 2:04 EDT Electronically signed by Christoph [facility] Conversion Vasc Tech Cerner at 01/18/2023 12:41 PM CDT documented in this encounter Plan of Treatment Not on file documented as of this encounter Visit Diagnoses Not on filedocumented in this encounter
--- OUTSIDE RECORDS SUMMARY | 2025-05-12 07:00 | XMS_ITS | Encounter Summary ---
Author Organization [employer] ([place], [place], [place], [place]) Address [address] [place] [address] Care Team Providers Care Pens And Pencils Dipper Name Role Phone Unavailable Primary Care Provider Unavailabl e Encounter Details Date Type Department Care Team (Late st Contact Info) Description 06/02/2021 Transcribed Document [facility] [place] [address] [place] [address] ProviderElyssa MD [address] [place] [address] Social History Tobacco Use Types [...] Conversion Note - Historical ProviderMD - 06/02/2021 2:00 AM CDT Varnish Filterer Details Entered On: 06/02/2021 5:43 EDT Performed On: 06/02/2021 2:00 EDT by Siria Rubin NON EMP RN - INTERNATIONAL Order Details IV Order Detail : 1 Central Line Order Detail : No Arterial Line : No Patient Needs Meds Crushed/Liquid : No Siria Rubin NON EMP RN - INTERNATIONAL - 06/02/2021 5:43 EDT documented in this encounter Plan of Treatment Not on file documented as of this encounter Visit Diagnoses Not on filedocumented in this encounter
--- OUTSIDE RECORDS SUMMARY | 2025-05-12 07:00 | XMS_ITS | Encounter Summary ---
Author Organization [employer] ([place], [place], [place], [place]) Address [address] [place] [address] Care Team Providers Care Station Gateman Name Role Phone Unavailable Primary Care Provider Unavailabl e Encounter Details Date Type Department Care Team (Late st Contact Info) Description 06/02/2021 Transcribed Document [facility] [place] [address] [place] [address] ProviderElyssa MD [address] [place] [address] Social History Tobacco Use Types [...] Note - Historical ProviderMD - 06/02/2021 5:00 PM CDT Chart Check - Review Order Profile Entered On: 06/02/2021 16:30 EDT Performed On: 06/02/2021 17:00 EDT by Alanis Correa LPN Chart Check All Active Orders Reviewed : Yes Alanis Correa LPN - 06/02/2021 16:30 EDT documented in this encounter Plan of Treatment Not on file documented as of this encounter Visit Diagnoses Not on filedocumented in this encounter
--- OUTSIDE RECORDS SUMMARY | 2025-05-12 07:00 | XMS_ITS | Clinical Summary ---
Author Organization [facility] Address [address] [place] [address] Phone Care Team Providers Care Smoke Control Supervisor Name Role Phone Unavailable Primary Care Provider Unavailabl e Allergies No known active allergies Medications * This document contains information received from the source organization and may not represent a complete record from that organization. No known medications Active Problems No known active problems Medical History Medical History Date Comments MS (multiple sclerosis) (HCC) Hyperlipidemia Dysphagia, oropharyngeal Anxiety Insomnia Overactive bladder Social History Tobacco Use Types Packs/Day Years Used Date Smoking Tobacco: Unknown Smokeless Tobacco: Never Tobacco Cessation:Counseling Given: No Alcohol Use Standard Drinks/Week Comments Not Currently 0 (1 standard drink = 0.6 oz pur e alcohol) Comments Unknown Sex and Gender Information Value Date Recorded Sex Assigned at Not on file Legal Sex Female 2:54 AM EDT Gender Identity Not on file Sexual Orientation Not on file Obstetrics History Last Filed Vital Signs Vital Sign Reading Time Taken Comments Blood Pressure - - Pulse - - Temperature - - Respiratory Rate - - Oxygen Saturation - - Inhaled Oxygen Concentration - - Weight 75.7 kg (166 lb 12.8 oz) 02/22/2017 1:13 PM EDT Height 160 cm (5' 3 ) 02/22/2017 1:13 PM EDT Body Mass Index 29.55 02/22/2017 1:13 PM EDT Plan of Treatment Health Maintenance Due Date Last Done Comments Wellness Exam Medicare 01/26/1971 DTaP/TDaP/Td (1 - Tdap) 01/26/1987 Hepatitis B Vaccine (1 of 3 - 19+ 3-dose series) 01/26/1987 Cervical Cancer Screening 01/26/1989 Pap Smear 01/26/1989 HPV/Pap Cotest 01/26/1998 Breast Cancer Screening 2008 Cologuard 01/26/2013 Colon Cancer Screening 01/26/2013 Colonoscopy 01/26/2013 FIT 01/26/2013 Sigmoidoscopy 01/26/2013 Virtual Colonography 01/26/2013 Pneumococcal Vaccine 50+ (1 of 1 - PCV) 01/26/2018 Zoster (1 of 2) 01/26/2018 COVID-19 Vaccine (1 - 2023-2 5 season) 2024 Influenza Vaccine (#1) 2025 Meningococcal B Vaccine Aged Out No l onger eligible based on patient's age to complete this topic Insurance [address] [place] [address] [place] [address] MEDICA[place] [address] [place] [address] MEDICARE [place] PART A [place] B MED[place]ID [place] Member Subscriber Plan / Payer (Ef fective 2016-Present) Name:Kelly Lo Relation to Subscriber:Self Name:Kelly Lo Payer ID:Not on file Group ID:Not on file Type:Not on file Address: [address] [place] [id number]
--- OUTSIDE RECORDS SUMMARY | 2025-05-12 07:00 | XMS_ITS | Encounter Summary ---
Author Organization [employer] ([place], [place], [place], [place]) Address [address] [place] [address] Care Team Providers Care Warehouse Puller Name Role Phone Unavailable Primary Care Provider Unavailabl e Encounter Details Date Type Department Care Team (Late st Contact Info) Description 06/01/2021 Transcribed Document [facility] [place] Family Medicine Formerly [facility] [place] [address] ProviderElyssa MD [facility]ly [facility] [place] [address] Social History Tobacco Use Types Packs/Day Years Used Date Smoking Tobacco: Never Assessed Comments Unknown Sex and Gender Information Value Date Recorded Sex Assigned at Female 03/28/2022 12:10 PM CDT Legal Sex Female 7:24 PM CDT Gender Identity Female 03/28/2022 12:10 PM CDT Sexual Orientation Not on file documented as of this encounter Miscellaneous Notes * Cerner Conversion Note - Elyssa ProviderMD - 06/01/2021 11:22 AM CDT [facility] Main OR IntraOp Summary Primary Physician: STELLA ORTIZ MD-SUR Finalized Date/Time: 06/03/21 16:15:48 Pt. Name: KELLY JACOBS Annelise Abernathy/Sex: 1970 Female Med Rec #: [id number] Physician: STELLA ORTIZ MD-SUR Financial #: [id number] Pt. Type: I Room/Bed: [facility]/ Admit/Disch: 06/01/21 16:38:00 - Institution: [facility] IntraOp Case Attendance Entry 1 Entry 2 Entry 3 Case Attendee STELLA ORTIZ MD-SUR BARRETT, LAURIE, MD-DANIELLA GHOSH, CHARTER DRIVER, CODING MACHINE OPERATOR Role Performed Surgeon/Proceduralist, Anesthesiologist of CODING MACHINE OPERATOR/Nurse Auth Specialist First Record Time In 06/01/21 10:46:00 06/01/21 10:46:00 06/01/21 10:46:00 Time Out 06/01/21 11:53:00 06/01/21 11:53:00 06/01/21 11:53:00 Procedure Leg Amputation Above Leg Amputation Above Leg Amputation Above Knee Knee Knee Other Attendee PRINCIPAL MECHANICAL ENGINEER Superficial Wound Closed By: Last Modified By: FLOYD BANDA RN RESULTAY, JOSEFINA, RN RESULTAY, JOSEFINA, RN 06/01/21 11:54:38 06/01/21 11:30:14 06/01/21 11:54:38 Entry 4 Entry 5 Entry 6 Case Attendee OTHER, ATTENDEE #1 Yamileth Osuna RN RESULTAY, JOSEFINA, PARESH Role Performed Student Pinking Sewing Machine Operator, First Pinking Sewing Machine Operator, Second Time In 06/01/21 10:46:00 06/01/21 10:46:00 06/01/21 10:46:00 Time Out 06/01/21 11:53:00 06/01/21 11:53:00 06/01/21 11:53:00 Procedure Leg Amputation Above Leg Amputation Above Leg Amputation Above Knee Knee Knee Other Attendee SID NATHAN Superficial Wound Closed By: Last Modified By: FLOYD BANDA RN RESULTAY, JOSEFINA, FLOYD WALKER RN 06/01/21 11:30:14 06/01/21 11:54:38 06/01/21 11:54:38 Entry 7 Entry 8 Entry 9 Case Attendee SHANTHI SOLANO ST Sparks, Brett, BLUNGER LOADER SANCHEZ, TRACIE, [place] Role Performed Scrub, First Scrub, Second Asset Availability Leader, First Time In 06/01/21 10:46:00 06/01/21 10:46:00 06/01/21 10:46:00 Time Out 06/01/21 11:15:00 06/01/21 11:53:00 06/01/21 11:53:00 Procedure Leg Amputation Above Leg Amputation Above Leg Amputation Above Knee Knee Knee Other Attendee YOAN WEBER Superficial Wound Closed By: Last Modified By: FLOYD BANDA RN RESULTAY, JOSEFINA, RN FLOYD BANDA RN 06/01/21 11:31:53 06/01/21 10:56:24 06/01/21 11:54:38 Entry 10 Case Attendee Callum Boo, Packing Attendant Role Performed Scrub, First Time In 06/01/21 11:15:00 Time Out 06/01/21 11:53:00 Procedure Leg Amputation Above Knee Other Attendee BREAK Superficial Wound Closed By: Last Modified By: FLOYD BANDA RN 06/01/21 11:30:14 [facility] IntraOp Case Attendance Audit 06/01/21 11:54:38 Claim Clinician: RESULTJO Modifier: RESULTJO 1 <+> Time Out 1 <*> Procedure Leg Amputation Above Knee 2 <+> Time Out 2 <*> Procedure Leg Amputation Above Knee 3 <+> Time Out 3 <*> Procedure Leg Amputation Above Knee 4 <+> Time Out 4 <*> Procedure Leg Amputation Above Knee 5 <+> Time Out 5 <*> Procedure Leg Amputation Above Knee 6 <+> Time Out 6 <*> Procedure Leg Amputation Above Knee 7 <*> Procedure Leg Amputation Above Knee 8 <+> Time Out 8 <*> Procedure Leg Amputation Above Knee 9 <+> Time Out 9 <*> Procedure Leg Amputation Above Knee 10 <+> Time Out 10 <*> Procedure Leg Amputation Above Knee 06/01/21 11:31:53 Claim Clinician: RESULTJO Modifier: RESULTJO 7 <+> Time Out 7 <*> Procedure Leg Amputation Above Knee 06/01/21 11:30:14 Claim Clinician: RESULTJO Modifier: RESULTJO 1 <*> Procedure Leg Amputation Above Knee 2 <*> Case Attendee IRMA GRANT MD-ANS 2 <*> Procedure Leg Amputation Above Knee 2 <+> Other Attendee 3 <*> Procedure Leg Amputation Above Knee 4 <*> Procedure Leg Amputation Above Knee 4 <+> Other Attendee 5 <*> Procedure Leg Amputation Above Knee 6 <*> Procedure Leg Amputation Above Knee 7 <*> Procedure Leg Amputation Above Knee 8 <*> Case Attendee OTHER, ATTENDEE #2 8 <*> Procedure Leg Amputation Above Knee 9 <+> Time In 9 <*> Procedure Leg Amputation Above Knee <+> 10 Case Attendee <+> 10 Role Performed <+> 10 Time In <+> 10 Procedure <+> 10 Other Attendee 06/01/21 11:01:28 Claim Clinician: RESULTJO Modifier: RESULTJO <+> 9 Case Attendee <+> 9 Role Performed <+> 9 Procedure 06/01/21 10:59:52 Claim Clinician: RESULTJO Modifier: RESULTJO <+> 1 Procedure 2 <*> Procedure Leg Amputation Above Knee 3 <*> Procedure Leg Amputation Above Knee 4 <*> Procedure Leg Amputation Above Knee 5 <*> Procedure Leg Amputation Above Knee 6 <*> Procedure Leg Amputation Above Knee 7 <*> Procedure Leg Amputation Above Knee 8 <*> Procedure Leg Amputation Above Knee 06/01/21 10:58:51 Claim Clinician: RESULTJO Modifier: RESULTJO 2 <*> Procedure Leg Amputation Above Knee 3 <*> Procedure Leg Amputation Above Knee 4 <*> Procedure Leg Amputation Above Knee 5 <*> Procedure Leg Amputation Above Knee 6 <*> Procedure Leg Amputation Above Knee 7 <+> Time In 7 <*> Procedure Leg Amputation Above Knee 8 <+> Time In 8 <*> Procedure Leg Amputation Above Knee 06/01/21 10:56:24 Claim Clinician: RESULTJO Modifier: RESULTJO 2 <+> Time In 2 <*> Procedure Leg Amputation Above Knee 3 <+> Time In 3 <*> Procedure Leg Amputation Above Knee 4 <+> Time In 4 <*> Procedure Leg Amputation Above Knee 5 <+> Time In 5 <*> Procedure Leg Amputation Above Knee 6 <+> Time In 6 <*> Procedure Leg Amputation Above Knee <+> 7 Case Attendee <+> 7 Role Performed <+> 7 Procedure <+> 8 Case Attendee <+> 8 Role Performed <+> 8 Procedure <+> 8 Other Attendee [facility] IntraOp Case Times Entry 1 Patient In Room Time 06/01/21 10:46:00 Out Room Time 06/01/21 11:53:00 Anesthesia Start Time 06/01/21 10:46:00 Stop Time 06/01/21 11:53:00 Surgery / Procedure Times Start Time 06/01/21 11:22:00 Stop Time 06/01/21 11:44:00 Last Modified By: FLOYD BANDA RN 06/01/21 11:44:21 [facility] IntraOp Case Times Audit 06/01/21 11:53:03 Claim Clinician: RESULTJO Modifier: RESULTJO <+> 1 Out Room Time <+> 1 Stop Time 06/01/21 11:44:21 Claim Clinician: RESULTJO Modifier: RESULTJO <+> 1 Stop Time 06/01/21 11:27:39 Claim Clinician: RESULTJO Modifier: RESULTJO <+> 1 Start Time [facility] IntraOp Cautery Entry 1 ESU Identification Cautery Type Monopolar ESU ID Number [id number] ID Type Hospital Number Cautery Settings Cut Setting 35 Coag Setting 35 ESU Grounding Pad Ground Pad Type Reusable electrode pad Grounding Pad Site Posterior Grounding Pad FLOYD BANDA RN Applied By Grounding Pad Site Warm, dry and intact Skin Condition Before Cautery Grounding Pad Site Unchanged Skin Condition After Cautery Last Modified By: FLOYD BANDA RN 06/01/21 10:55:37 [facility] IntraOp Cautery Audit 06/01/21 11:30:40 Claim Clinician: RESULTJO Modifier: RESULTJO 1 <*> Grounding Pad Site Right Buttock [facility] IntraOp Communication Entry 1 Entry 2 Communication To Family/Significant other Family/Significant other Comment START NO ANSWER Communication By FLOYD BANDA RN RESULTAY, JOSEFINA, RN Date and Time 06/01/21 11:22:00 06/01/21 11:43:00 Last Modified By: FLOYD BANDA RN RESULTAY, JOSEFINA, RN 06/01/21 11:28:06 06/01/21 11:43:14 [facility] IntraOp Communication Audit 06/01/21 11:43:14 Claim Clinician: RESULTJO Modifier: RESULTJO <+> 2 Communication By <+> 2 Date and Time <+> 2 Communication To <+> 2 Comment [facility] IntraOp Counts Verification Entry 1 Procedure Leg Amputation Above Knee Count Info Count Type Sponge, Sharps, Miscellaneous Counts Verification Baseline/pre-procedure Sequence Count Results Not Applicable Counts Performed By Count Performed By SHANTHI SOLANO ST (Scrub) Count Performed By FLOYD BANDA RN (RN) Last Modified By: FLOYD BANDA RN 06/01/21 11:43:49 [facility] IntraOp Counts Verification Audit 06/01/21 11:43:49 Claim Clinician: RESULTJO Modifier: RESULTJO 1 <*> Procedure Leg Amputation Above Knee 1 <*> Count Type Sponge, Sharps, Miscellaneous 1 <*> Counts Verification Sequence Baseline/pre-procedure 1 <*> Count Results Not Applicable 1 <*> Count Performed By (Scrub) SHANTHI SOLANO ST 1 <*> Count Performed By (RN) FLOYD BANDA RN Entry 2 was deleted. Higher numbered entries shifted one position to fill the gap. <-> 2 Procedure Leg Amputation Above Knee <-> 2 Count Type Sponge, Sharps, Miscellaneous <-> 2 Counts Verification Sequence Before wound closure 06/01/21 10:59:31 Claim Clinician: RESULTJO Modifier: RESULTJO <+> 2 Procedure <+> 2 Count Type <+> 2 Counts Verification Sequence [facility] IntraOp Counts Final Entry 1 Procedure Leg Amputation Above Knee Final Count Info Count Type Sponge, Sharps, Miscellaneous Counts Verification Skin Closure/end of Sequence procedure Count Results Correct, surgeon notified Counts Performed By Count Performed By Callum Boo, Surgical (Scrub) Business Intern Count Performed By FLOYD BANDA RN (RN) Last Modified By: FLOYD BANDA RN 06/01/21 10:59:15 [facility] IntraOp Counts Final Audit 06/01/21 11:43:42 Claim Clinician: RESULTJO Modifier: RESULTJO 1 <*> Procedure Leg Amputation Above Knee 1 <+> Count Results 1 <+> Count Performed By (Scrub) 1 <+> Count Performed By (RN) [facility] IntraOp Cultures and Spec Summary Entry 1 Cultrures and Specimens Specimen Ordered: Yes Test(s) Routine/Path-Lab Requested/Final Disposition Last Modified By: FLOYD BANDA RN 06/01/21 10:56:49 General Comments: 1. RIGHT AKA [facility] IntraOp Departure from OR Entry 1 Integumentary Assessment Transfer/Handoff Transfer to PACU Phase I Handoff Method Bedside/Face to face, Phone call, Online nursing summary Post-op Transport Stretcher/Gurney Via Patient Transport DANIELLA GOMEZ APRN, Accompanied by LAURA JORDAN KRISTI, PA Last Modified By: FLOYD BANDA RN 06/01/21 11:31:03 [facility] IntraOp Departure from OR Audit 06/01/21 11:44:35 Claim Clinician: RESULTJO Modifier: RESULTJO <+> 1 Patient Transport Accompanied by 06/01/21 11:31:03 Claim Clinician: RESULTJO Modifier: RESULTJO <+> 1 Handoff Method [facility] IntraOp Dressing and Packing Entry 1 Type Dressing Location RIGHT LEG Wound Dressing Item Xeroform, 4x4's, Kerlix/Senia, Won Applied By STELLA ORTIZ MD-ANNALISE Last Modified By: FLOYD BANDA RN 06/01/21 11:44:17 [facility] IntraOp Fire Risk Assessment Entry 1 Fire Info Surgical Site or 0- No Incision Above the Xyphoid Open O2 Source 1- Yes (Mask or Cannula) Available Ignition 1- Yes (ESU, Laser, Light Source) Fire Risk 2 Assessment Score Fire Score Fire Risk Yes Assessment Complete Fire Risk Yamileth Osuna RN Assessment Verified By Fire Risk 06/01/21 10:57:00 Assessment Verified Date/Time Fire Risk Last Modified By: FLOYD BANDA RN 06/01/21 10:57:02 [facility] IntraOp General Case Equity Trader 1 Case Information OR OR 02 [facility] Case Level 1 Room Verified Yes Wound Class III - Contaminated Specialty General Anesthesia Type MAC ASA Class 4 Diagnosis Preop Diagnosis NON HEALING RIGHT FOOT ULCER Postop Same As Preop No Postop Diagnosis SEE MD NOTE Last Modified By: FLOYD BANDA RN 06/01/21 10:57:18 [facility] IntraOp General Case Data Audit 06/01/21 11:32:12 Claim Clinician: RESULTJO Modifier: RESULTJO <+> 1 Preop Diagnosis 06/01/21 11:31:20 Claim Clinician: RESULTJO Modifier: RESULTJO 1 <*> OR OR 07 [facility] 1 <*> Specialty [facility] IntraOp Intraoperative Assessment Entry 1 Handoff Method Online nursing summary Valid History / Yes Physical in Chart Preoperative Yes Checklist Reviewed/Evaluated Allergies Reviewed Yes Patient is Latex No Sensitive Isolation Not applicable Precautions Noted Skin Assessment No Verified Present Upon IVs, Oxygen Arrival to OR Last Modified By: FLOYD BANDA RN 06/01/21 11:32:34 [facility] IntraOp Intraoperative Assessment Audit 06/01/21 11:32:34 Claim Clinician: RESULTJO Modifier: RESULTJO 1 <*> Handoff Method Bedside/Face to face [facility] IntraOp Intraoperative Equipment Entry 1 Type Monitoring Equipment Intraop Monitoring Electrocardiogram Three lead placement (ECG) Electrode Placement Blood Pressure Non-Invasive BP Device Source Blood Pressure Arm, right upper Location Pulse Oximeter Hand, left Probe Site Antiembolic Devices Scopes Photo/Video Documentation Photo No Video No Last Modified By: FLOYD BANDA RN 06/01/21 10:58:21 [facility] IntraOp Intraoperative Equipment Audit 06/01/21 11:32:51 Claim Clinician: RESULTJO Modifier: RESULTJO <+> 1 Photo <+> 1 Video [facility] IntraOp Patient Positioning Entry 1 Procedure Leg Amputation Above Knee Body Position Supine Left Arm Position Other Right Arm Position Other Left Leg Position Uncrossed, parallel Right Leg Position Uncrossed, parallel Feet Uncrossed Yes Pressure Points Yes Checked Positioning Devices Head Rest, Pad, Arm, Pad, Elbow, Roll (Other), Safety Strap, Chest Device Position PT HAS CONTRACTURES ON ALL EXTREMITIES, PADDED WELL, ROLLED BLANKETS AND PADS UNDER THE LEFT KNEE Positioned By STELLA ORTIZ MD-ANNALISE, DANIELLA GOMEZ APRN, CODING MACHINE OPERATOR, OTHER, ATTENDEE #1, Yamileth Osuna RN, FLOYD BANDA RN Position Verified Positioning Yes Verified by Anesthesia Positioning Yes Verified by Surgeon Last Modified By: FLOYD BANDA RN 06/01/21 11:35:36 [facility] IntraOp Sign In Entry 1 Patient, Site, Yes Procedure Identified Surgical Consent Yes Confirmed Relevant Surgical Yes Documents Available Surgical Site Yes Marked by person performing procedure Anesthesia Machine Yes Check Completed Medication Checks Yes Completed Allergies No Airway Difficult Yes Airway/Aspiration Risk Difficult Yes Airway/Aspiration Intervention Equipment Available Blood Loss Risk Yes Blood Loss Yes Intervention Equipment Prepared and Ready Blood Identifiers Not applicable Verified Per Policy Hypothermia Risk No Warming Measures Yes Taken Last Modified By: FLOYD BANDA RN 06/01/21 10:58:48 [facility] IntraOp Sign In Audit 06/01/21 11:35:59 Claim Clinician: RESULTJO Modifier: RESULTJO 1 <*> Allergies Yes 1 <*> Warming Measures Taken No [facility] IntraOp Sign Out Entry 1 RN Confirmation Surgical Yes Procedure(s) Identified Instrument, Sponge Yes and Sharps Counts Correct/Documented Equipment Problems N/A Documented Specimen Labeled Yes Correctly Urinary Catheter N/A Documented in IView Patel Patient Yes Recovery Concerns Reviewed with Anesthesia Provider, Surgeon and RN Patel Patient Yes Management Concerns Reviewed with Anesthesia Provider, Surgeon and RN Safety Checklist Yes Elements Complete? RN Sign Out FLOYD BANDA RN Signature RN Sign Out 06/01/21 11:53:00 Signature Date/Time Plan of Care Outcome - Fire Risk OUTCOME STATEMENT: Goal met Patient is free from injury related to surgical fire Plan of Care Outcome - Pt Positioning OUTCOME STATEMENT: Goal met Absence of signs and symptoms of positioning injury. Plan of Care Outcome - Skin Prep OUTCOME STATEMENT: Goal met Intraoperative care is consistent with measures to prevent infection Plan of Care Outcome - Xray/Images OUTCOME STATEMENT: N/A Absence of observable signs or symptoms of radiation injury Plan of Care Outcome - Counts OUTCOME STATEMENT: Goal met Absence of signs and symptoms of injury related to extraneous objects Last Modified By: FLOYD BANDA RN 06/01/21 11:02:04 [facility] IntraOp Sign Out Audit 06/01/21 11:57:16 Claim Clinician: RESULTJO Modifier: RESULTJO <+> 1 RN Sign Out Signature <+> 1 RN Sign Out Signature Date/Time 06/01/21 11:36:30 Claim Clinician: RESULTJO Modifier: RESULTJO 1 <*> OUTCOME STATEMENT: Absence of Goal met observable signs or symptoms of radiation injury [facility] IntraOp Skin Prep Entry 1 Procedure Leg Amputation Above Knee Prescribed N/A Pre-Surgical Prep Completed Prep Area RIGHT LEG CIRCUMFERENTIAL Intraop Prep Prep Agents Chloraprep Prep by FLOYD BANDA RN Hair Removal Methods No hair removal performed Last Modified By: FLOYD BANDA RN 06/01/21 11:02:39 [facility] IntraOp Surgical Procedures Entry 1 Procedure Leg Amputation Above Knee Additional RIGHT ABOVE KNEE Procedure AMPUTATION Description Primary Procedure Yes Primary Surgeon STELLA ORTIZ MD-ANNALISE Start 06/01/21 11:22:00 Stop 06/01/21 11:44:00 Anesthesia Type MAC Specialty General Wound Class III - Contaminated Last Modified By: FLOYD BANDA RN 06/01/21 11:36:51 [facility] IntraOp Surgical Procedures Audit 06/01/21 11:47:52 Claim Clinician: RESULTJO Modifier: RESULTJO <+> 1 Stop 06/01/21 11:36:51 Claim Clinician: RESULTJO Modifier: RESULTJO 1 <*> Procedure Leg Amputation Above Knee 1 <*> Specialty 1 <*> Anesthesia Type General 1 <*> Additional Procedure Description (RIGHT ABOVE KNEE AMPUTATION) 06/01/21 11:35:38 Claim Clinician: RESULTJO Modifier: RESULTJO <+> 1 Start [facility] IntraOP Time Out Entry 1 Procedure to be Leg Amputation Above Performed Knee Time Out Time Out Pause Time 06/01/21 11:22:00 All activity Yes suspended (unless life threatening emergency) Team Verbally Correct patient Confirms Information identity, Correct side and site are marked, Consent form is present and accurate, Agreement on the procedure to be done, Correct patient position, Confirm antibiotics have been administered, Confirm the skin prep has dried, Performed in location of procedure after prepped/draped Antibiotic Yes Prophylaxis Administered Or In Progress Within the Last 60 Minutes Beta Shailesh Yes Administered Venous Yes Thromboembolism Prophylaxis Required Anticipated Critical Events Surgeon None expected Anesthesia Provider Patient specific concerns Nursing Assures Sterility of instruments Essential Imaging N/A Labeled and Displayed Last Modified By: FLOYD BANDA RN 06/01/21 11:27:31 [facility] IntraOP Time Out Audit 06/01/21 11:27:31 Claim Clinician: ANDRES Modifier: RESULTJO 1 <*> Venous Thromboembolism Prophylaxis N/A Required 1 <*> Nursing Assures Sterility of instruments, Equipment concerns or issues 1 <+> Time Out Pause Time 1 <*> Procedure to be Performed Leg Amputation Above Knee Case Comments <None> Finalized By: MARIELLA RICO Document Signatures Signed By: FLOYD BANDA RN 06/01/21 11:57 MARIELLA RICO 06/03/21 16:15 Unfinalized History Date/Time Username Reason for Unfinalizing Freetext Reason for Unfinalizing 06/03/21 16:14 WATTSDR Correct Billing documented in this encounter Plan of Treatment Not on file documented as of this encounter Visit Diagnoses Not on filedocumented in this encounter
--- OUTSIDE RECORDS SUMMARY | 2025-05-12 07:00 | XMS_ITS | Encounter Summary ---
Author Organization [employer] ([place], [place], [place], [place]) Address [address] [place] [address] Care Team Providers Care Insurance Attorney Name Role Phone Unavailable Primary Care Provider Unavailabl e Encounter Details Date Type Department Care Team (Late st Contact Info) Description 06/01/2021 Transcribed Document [facility] [place] [facility] [place] [address] ProviderElyssa MD [facility] [place] [address] Social History Tobacco Use Types [...] Cerner Conversion Note - Historical ProviderMD - 06/01/2021 6:05 AM CDT Admission History, Adult Entered On: 06/01/2021 16:56 EDT Performed On: 06/01/2021 6:05 EDT by Antony Phillip RN-TRAVELER Advance Directive Patient has Advance Directive *Q : No, patient refuses Advance Directive information Antony Phillip RN-TRAVELER - 06/01/2021 16:56 EDT Anesthesia/Transfusion History Family History of Anesthesia Reaction : Unknown Blood Transfusion Acceptable to Patient : Yes Transfusion History : Unknown Family History of Anesthesia Reaction : Unknown Antony Phillip RN-TRAVELER - 06/01/2021 19:25 EDT Functional Assessment Living Situation : Rehabilitation unit/facility Current Daily Living Assistance : ADLs, Housekeeping, Meals Mobility Assistance Prior to Admission : Non-Ambulatory PACKER Hx Falls Immediate/Within 3 Months : No Current Home Treatments : None Antony Phillip RN-TRAVELER - 06/01/2021 19:25 EDT General Info Legal Guardian : Care provider Support Person/Patient 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 Chief : Yes Support Person/Pt Rep Name : Verenice Giles - 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 [employer] Want Family/Rep/Phys Notified of Admit : No Emergency Contact #1 : Jahaira Peck Emergency Contact #1 Emergency Contact #1 Relationship : Daughter Emergency Contact #2 : ` Emergency Contact #2 Phone Number : ` Emergency Contact #2 Relationship : ` Information Obtained From : Care provider Information Obtained from, Name(s) : Shellie Mobley - RN at [facility] in [place], [place] Primary Language : Portuguese Communication Barrier : Expressive aphasia Turf Keeper Needed : No Antony Phillip RN-TRAVELER - 06/01/2021 16:56 EDT Fall Risk Scales ABCs Fall Injury Risk Identification : Bones, Coagulation, Surgery ABC Fall Injury Risk : Moderate to high injury risk Injury Moderate to High Risk Interventions : High Risk for Fall Injury sign in place per policy, Supervise toileting as indicated, Transport methods appropriate to patient PACKER Hx Falls Immediate/Within 3 Months : No Packer Secondary Diagnosis : Yes APCKER Use of Ambulatory Aid : Bed rest/Nurse assist PACKER IV Therapy or IV Access : Yes Packer Gait/Transferring : Normal, bedrest, immobile Packer Mental Status : Overestimates/Forgets limitations Packer Fall Risk Score : 50 PACKER Fall Scale Risk Level : 46 or > High Risk [place] Fall Interventions : Adequate lighting, Bed in low position, Call device within reach, Hourly comfort/safety rounds, Non-slip footwear, Personal items within reach, Reinforced to call for assistance before getting out of bed, Room free of clutter/spills, Upper side-rails up, Wheels locked, Wires/Cords secured Fall Moderate to High Risk Interventions : High Risk for Fall sign in place per policy Fall Risk Scale Calc Temp : 1 Antony Phillip RN-TRAVELER - 06/01/2021 19:25 EDT Health Histories Smoking Status : Former smoker, quit more than 30 days ago Smokeless Tobacco Status : Never Implant/Device Type, Farm Agent and Model : na Antony Phillip RN-TRAVELER - 06/01/2021 19:25 EDT Social History (As Of: 06/01/2021 19:27:23 EDT) Tobacco: Former smoker, quit more than 30 days ago Smoking Status. Never Smokeless Tobacco Status. None Smokeless Tobacco Use History. Last Used: I've been here since 2014 and she hasn't smoked . Second Hand Smoke Exposure: No. (Last Updated: 05/31/2021 14:37:12 EDT by Eric Steiner, Kayden) Alcohol: Alcohol Use History No. Use in Last 12 Months: No. (Last Updated: 05/31/2021 14:37:12 EDT by Eric Steiner Rn) Substance Abuse: Drug Use Hx: No. Use in Last 12 Months: No. (Last Updated: 05/31/2021 14:37:12 EDT by Eric Steiner Rn) Height and Weight, Clinical Dosing Height Source : Measured Height Entry Format : [place] Height, Feet : 5 ft(Converted to: 152 cm, 60 Inch) Height, Inches : 1 Inch(Converted to: 0 ft 1 Inch, 2.54 cm) Clinical Height : 154.94 cm Weight Source : Bed scale Weight Entry Format : [place] Clinical Dosing Weight : 46.82 kg Weight, Pounds : 103 lb Body Surface Area (BSA) : 1.43 m2 Body Mass Index : 19.5 kg/m2 [place] Body Weight : 47 kg Antony Phillip RN-TRAVELER - 06/01/2021 19:25 EDT Infectious Disease History Has the patient ever been tested for COVID-19? : Yes, Patient stated results Negative Where was the COVID-19 Testing completed? : [facility] in [place], [place] Date of COVID-19 test known? : Yes Date of COVID-19 Test : 05/31/2021 EDT Does patient have symptoms of COVID-19? : No COVID19 Screening : No Experiencing Infectious Disease Symptoms : No symptoms Physical contact outside [place] in the last 30 days : No Infectious Disease History : None Tuberculosis Symptoms : None Antony Phillip RN-TRAVELER - 06/01/2021 19:25 EDT Influenza Vaccine Asmt, Adult Previous Vaccines from Immunization Schedule : No qualifying data available. Influenza Immunization, Current Season : Outside of influenza season Antony Phillip RN-TRAVELER - 06/01/2021 19:25 EDT Pneumococcal Vaccine Previous Vaccines from Immunization Schedule : No qualifying data available. Pneumonia Immunization Received : Yes Antony Phillip RN-TRAVELER - 06/01/2021 19:25 EDT Order Details Patient Needs Meds Crushed/Liquid : No Antony Phillip RN-TRAVELER - 06/01/2021 19:25 EDT Nutrition History Eating Poorly Due to Decreased Appetite : No Unplanned Weight Loss in Past 3-6 Months : No Malnutrition Screening Tool Total(mal) : 0 Malnutrition Screening Tool Risk Level : Patient not at risk Antony Phillip RN-TRAVELER - 06/01/2021 19:27 EDT [place] Suicide Severity Rating Scale (C-SSRS) CSSRS Past Month Wish to be : No CSSRS Past Month Suicidal Thoughts : No CSSRS Lifetime Suicide Behavior : No Suicide Severity Rating Score : 0 Suicide Severity Rating : No Additional Care Required at this time Antony Phillip RN-TRAVELER - 06/01/2021 19:27 EDT Psychosocial History Currently in Unsafe Situation : No Antony Phillip RN-TRAVELER - 06/01/2021 19:27 EDT Sleep Apnea Risk Assmt Hx of Obstructive Sleep Apnea Diagnosis : No Snore Loudly : No Tired, Fatigued, or Sleepy During Day : Yes Observed Stopping Breathing During Sleep : No Have/Are Being Treated for Hypertension : Yes BMI Greater Than 35 kg/m2 : No Age over 50 Years Old : Yes Neck Circumference Greater Than 40 cm : No Gender Male : No STOP-BANG Sleep Apnea Risk Level Score : 3 Antony Phillip RN-TRAVELER - 06/01/2021 19:27 EDT Valuables and Belongings Valuables and Belongings : No clothing, No comfort items, No jewelry, No personal devices, No personal items, No assistive devices, No respiratory devices, No medications Antony Phillip RN-TRAVELER - 06/01/2021 19:27 EDT documented in this encounter Plan of Treatment Not on file documented as of this encounter Visit Diagnoses Not on filedocumented in this encounter
--- OUTSIDE RECORDS SUMMARY | 2025-05-12 07:00 | XMS_ITS | Encounter Summary ---
Author Organization [employer] ([place], [place], [place], [place]) Address [address] [place] [address] Care Team Providers Care Rail Bender Name Role Phone Unavailable Primary Care Provider Unavailabl e Encounter Details Date Type Department Care Team (Late st Contact Info) Description 06/06/2021 Transcribed Document [facility] [place] [facility] [place] [address] ProviderElyssa MD [address] [place] [address] Social History Tobacco Use Types [...] Conversion Note - Historical ProviderMD - 06/06/2021 8:25 AM CDT Patient: GILDA JACOBS Age: 51 Years Sex: Female : 1970 Subjective Patient reports no acute events overnight. She is due for wound dressing change today. Nursing staff report that she remains afebrile with stable vital signs and saturating appropriately on room air. Her laboratory studies have remained stable over 3 days. Case management assisting with next site of care. Review of systems Constitutional: No fever, no chills Respiratory: No acute dyspnea, no cough Cardiovascular: No chest pain, no palpitation, no increasing pedal edema GI: No nausea, vomiting or diarrhea Neuro: No confusion, no acute motor or sensory changes Vital Signs T: 37 ??C TMIN: 36.8 ??C TMAX: 37.4 ??C HR: 54(Monitored) RR: 16 BP: 143/80 SpO2: 95% Oxygen Settings (Last) Oxygen Therapy Mode: Room air (06/05/21 22:00:00) Oxygen Flow Rate: 1 Liter/Min (06/04/21 08:00:00) Intake & Output Totals Last 24 Hours (7a-7a) Input Total: 960 mL Output Total: 0 mL Balance: 960 mL Physical Exam General: Alert and oriented, [...] Assessment/Plan Chronic right foot wound postop day 5 status post right AKA ???History of peripheral [...] therapy ???SSRI therapy Hypothyroidism ???Levothyroxine replacement therapy The patient is hospitalized day 5 on the Medr unit with right AKA complicated by her above diagnoses and comorbidities. We appreciate vascular document management consultant and we will continue with routine objective evaluations to assess her progress. Expected discharge pending at this time. Anticipated discharged back to her [place] facility tomorrow after her dressing change. We appreciate case quality management coordinator assisting with routine evaluations to transition her care. VTE Prophylaxis - Medical Cilostazol 50 mg, [...] 50 mcg/inh nasal spray, 100 mcg= 2 [place], Nasal, At Bedtime furosemide, 40 mg= 1 [...] mg= 1 Tab, Oral, At Bedtime, PRN [place] 10 mg-325 mg oral tablet, 1 Tab, Oral, Q4H, PRN [place] 5 mg-325 mg oral tablet, 1 Tab, Oral, Q4H, PRN [place] 7.5 mg-325 mg oral tablet, 2 Tab, [...] mg= 2 mL, IV Push, Q6H, PRN documented in this encounter Plan of Treatment Not on file documented as of this encounter Visit Diagnoses Not on filedocumented in this encounter
--- OUTSIDE RECORDS SUMMARY | 2025-05-12 07:00 | XMS_ITS | Encounter Summary ---
Author Organization [employer] ([place], [place], [place], [place]) Address [address] [place] [address] Care Team Providers Care Publications Editor Name Role Phone Unavailable Primary Care Provider Unavailabl e Encounter Details Date Type Department Care Team (Late st Contact Info) Description 06/01/2021 Transcribed Document [facility] [place] Medicine [facility] [place] [address] ProviderElyssa MD [place] [address] Social History Tobacco Use Types [...] Elyssa ProviderMD - 06/01/2021 11:22 AM CDT [facility] Main OR PACU Summary Primary Physician: STELLA ORTIZ MD-SUR Finalized Date/Time: 06/01/21 17:24:16 Pt. Name: GILDA JACOBS D.O.B./Sex: 1970 Female Med Rec #: [id number] Physician: STELLA ORTIZ MD-SUR Financial #: [id number] Pt. Type: O Room/Bed: [facility]/ Admit/Disch: 06/01/21 06:19:00 - Institution: [facility] Main OR PACU I Case Times Entry 1 In PACU I 06/01/21 11:55:00 Ready for PACU 06/01/21 13:30:00 Discharge Discharge from PACU 06/01/21 15:50:00 I Last Modified By: JUAN JARQUIN RN 06/01/21 17:24:07 [facility] Main OR PACU Acuity Entry 1 Start Time 06/01/21 13:30:00 Stop Time 06/01/21 15:59:00 Acuity Level [facility] PACU Acuity I Last Modified By: JUAN JARQUIN RN 06/01/21 17:24:14 Finalized By: JUAN JARQUIN, RN Document Signatures Signed By: JUAN JARQUIN RN 06/01/21 17:24 Electronically signed by Christoph [facility] Conversion Business Unit Controller Cerner at 01/18/2023 12:45 PM CDT documented in this encounter Plan of Treatment Not on file documented as of this encounter Visit Diagnoses Not on filedocumented in this encounter
--- OUTSIDE RECORDS SUMMARY | 2025-05-12 07:00 | XMS_ITS | Encounter Summary ---
Author Organization [employer] ([place], [place], [place], [place]) Address [address] [place] [address] Care Team Providers Care Master Cosmetologist Name Role Phone Unavailable Primary Care Provider Unavailabl e Encounter Details Date Type Department Care Team (Late st Contact Info) Description 06/04/2021 Transcribed Document [facility] [place] [facility] [place] [address] ProviderElyssa MD [address] [place] [address] Social History Tobacco Use Types [...] Conversion Note - Historical ProviderMD - 06/04/2021 8:23 AM CDT Patient: GILDA JACOBS Age: 51 Years Sex: Female : 1970 Subjective No acute events are reported overnight. She reports adequate pain control. She continues with wound care. Nursing staff report that she remains afebrile with stable vital signs. She is saturating appropriately on room air. Review of systems Constitutional: No fever, no chills Respiratory: No acute dyspnea, no cough Cardiovascular: No chest pain, no palpitation, no increasing pedal edema GI: No nausea, vomiting or diarrhea Neuro: No confusion, no acute motor or sensory changes Vital Signs T: 37.4 ??C TMIN: 36.4 ??C TMAX: 37.7 ??C HR: 82(Monitored) RR: 16 BP: 137/76 SpO2: 100% Oxygen Settings (Last) Oxygen Therapy Mode: Room air (06/04/21 06:00:00) Oxygen Flow Rate: 1 Liter/Min (06/03/21 10:45:00) Intake & Output Totals Last 24 Hours (7a-7a) Input Total: 238 mL Output Total: 0 mL Balance: 238 mL Physical Exam General: Alert and oriented, [...] Assessment/Plan Chronic right foot wound postop day 3 status post right AKA ???History of peripheral [...] replacement therapy The patient is hospitalized day 3 on the MedSur unit with right AKA complicated by her above diagnoses and comorbidities. We appreciate vascular quality assurance consultant and we will continue with routine objective evaluations to assess her progress. Expected discharge pending at this time. She will be discharged back to her [place] facility. We appreciate case director workforce management assisting with routine evaluations to transition her [...] 50 mcg/inh nasal spray, 100 mcg= 2 [place], Nasal, At Bedtime furosemide, 40 mg= 1 [...] mg= 1 Tab, Oral, At Bedtime, PRN [place] 10 mg-325 mg oral tablet, 1 Tab, Oral, Q4H, PRN [place] 5 mg-325 mg oral tablet, 1 Tab, Oral, Q4H, PRN [place] 7.5 mg-325 mg oral tablet, 2 Tab, [...] mL, IV Push, Q6H, PRN Lab Results Test Name Test Result Date/Time Sodium Level 138 mmol/L 06/04/2021 06:10 EDT Potassium Level 4.1 mmol/L 06/04/2021 06:10 EDT Chloride Level 108 mmol/L 06/04/2021 06:10 EDT Carbon Dioxide Level 24 mmol/L 06/04/2021 06:10 EDT Anion Gap 10 06/04/2021 06:10 EDT Glucose Level 89 mg/dL 06/04/2021 06:10 EDT Blood Urea Nitrogen 6 mg/dL (Low) 06/04/2021 06:10 EDT Creatinine Level 0.30 mg/dL (Low) 06/04/2021 06:10 EDT eGFR >60 mL/min/1.73m2 06/04/2021 06:10 EDT eGFR NonAfrican >60 mL/min/1.73m2 06/04/2021 06:10 EDT Bun/Creatinine 20.0 06/04/2021 06:10 EDT Calcium Level 8.7 mg/dL 06/04/2021 06:10 EDT WBC 8.9 K/uL 06/04/2021 06:10 EDT RBC 4.35 Million/uL 06/04/2021 06:10 EDT Hgb 12.1 g/dL 06/04/2021 06:10 EDT Hct 37.7 % 06/04/2021 06:10 EDT MCV 86.7 fL 06/04/2021 06:10 EDT MCH 27.8 pg 06/04/2021 06:10 EDT MCHC 32.1 Gram/dL (Low) 06/04/2021 06:10 EDT Platelet Count 229 K/uL 06/04/2021 06:10 EDT MPV 10.5 fL 06/04/2021 06:10 EDT RDW 13.6 % 06/04/2021 06:10 EDT Neut % 70.0 % 06/04/2021 06:10 EDT Neut # 6.21 K/uL (High) 06/04/2021 06:10 EDT Lymph % 18.3 % (Low) 06/04/2021 06:10 EDT Lymph # 1.63 x10(3)/uL 06/04/2021 06:10 EDT [place] % 9.1 % (High) 06/04/2021 06:10 EDT [place] # 0.81 K/uL 06/04/2021 06:10 EDT Eos % 1.8 % 06/04/2021 06:10 EDT Eos # 0.16 x10(3)/uL 06/04/2021 06:10 EDT Baso % 0.4 % 06/04/2021 06:10 EDT Baso # 0.04 x10(3)/uL 06/04/2021 06:10 EDT Slide Review No 06/04/2021 06:10 EDT IG# 0.04 x10(3)/uL 06/04/2021 06:10 EDT IG% 0.40 % 06/04/2021 06:10 EDT Procalcitonin <0.25 ng/mL 06/04/2021 06:10 EDT documented in this encounter Plan of Treatment Not on file documented as of this encounter Visit Diagnoses Not on filedocumented in this encounter
--- OUTSIDE RECORDS SUMMARY | 2025-05-12 07:00 | XMS_ITS | Encounter Summary ---
Author Organization [employer] ([place], [place], [place], [place]) Address [address] [place] [address] Care Team Providers Care House Painter Helper Name Role Phone Unavailable Primary Care Provider Unavailabl e Encounter Details Date Type Department Care Team (Late st Contact Info) Description 06/01/2021 Transcribed Document [facility] Radiology [address] [place] [address] Ezra Colunga MD [address] [facility] [place] [address] Social History Tobacco Use Types Packs/Day Years [...] Note - Ezra Colunga MD - 06/01/2021 9:06 AM EDT Patient: GILDA JACOBS Age: 51 years Sex: Female : 1970 Associated Diagnoses: None Author: MONICA HANNA APRN Chief Complaint non healing ulcer RLE Review of Systems ROS reviewed as documented in chart no change since last seen by surgeon Health Status Allergies: Allergic Reactions (Selected) No Known Medication Allergies, Allergies (1) Active Reaction No Known Medication Allergies None Documented Current medications: No qualifying data available , No qualifying data available Problem list: All Problems Thyrotoxicosis / SNOMED CT 984382489 / Confirmed Peripheral venous insufficiency / SNOMED CT 15796267 / Confirmed Overactive bladder / SNOMED CT 8456187680 / Confirmed Multiple sclerosis / SNOMED CT 49234354 / Confirmed 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 Migraine / SNOMED CT 83347768 / Confirmed Hyperthyroidism / SNOMED CT 51843853 / Confirmed HTN (hypertension) / SNOMED CT 4057592748 / Confirmed HLD (hyperlipidemia) / SNOMED CT 47988382 / Confirmed Hemiplegia / SNOMED CT 96812450 / Confirmed Graves disease / SNOMED CT 413882180 / Confirmed Depression / SNOMED CT 07661876 / Confirmed Hormone deficiency / SNOMED CT 727100924 / Confirmed COVID-19 / SNOMED CT 7733643949 / Confirmed Constipation / SNOMED CT 43617409 / Confirmed CVA (cerebral vascular accident) / SNOMED CT 231738433 / Confirmed Allergic rhinitis / SNOMED CT 011331865 / Confirmed, Active Problems (17) Allergic rhinitis Constipation COVID-19 CVA (cerebral vascular accident) Depression Graves disease Hemiplegia HLD (hyperlipidemia) Hormone deficiency HTN (hypertension) Hyperthyroidism Migraine Torres torres disease Multiple sclerosis Overactive bladder Peripheral venous insufficiency Thyrotoxicosis non healing ulcer RLE Histories Past Medical History: No active or resolved past medical history items have been selected or recorded. Family History: No family history items have been selected or recorded. Procedure history: No active procedure history items have been selected or recorded. Physical Examination VS/Measurements No qualifying data available General: Alert and oriented, No acute distress. Eye: Pupils are equal, round and reactive to light, Extraocular movements are intact. HENT: Normocephalic, Normal hearing, mostly non verbal due to brain injury. Neck: Supple, Non-tender, severe kyphosis of cervical spine. Respiratory: Lungs are clear to auscultation, Respirations are non-labored. Cardiovascular: Normal rate, Regular rhythm, No murmur, No gallop, RLE 2+ edema. Gastrointestinal: Soft, Non-tender. Genitourinary: No costovertebral angle tenderness. Lymphatics: No lymphadenopathy neck, axilla, groin. Musculoskeletal: uses wc, does not ambulate, contractures of arms and legs and cervical spine. Integumentary: Warm, Dry, RLE non healing wound with dressing POA. Neurologic: Alert, Oriented. Psychiatric: Cooperative, Appropriate mood & affect. Review / Management Results review: No qualifying data available. Impression and Plan Condition: Stable. documented in this encounter Plan of Treatment Not on file documented as of this encounter Visit Diagnoses Not on filedocumented in this encounter
--- OUTSIDE RECORDS SUMMARY | 2025-05-12 07:00 | XMS_ITS | Encounter Summary ---
Author Organization [employer] ([place], [place], [place], [place]) Address [address] [place] [address] Care Team Providers Care Signal Maintainer Name Role Phone Unavailable Primary Care Provider Unavailabl e Encounter Details Date Type Department Care Team (Late st Contact Info) Description 06/01/2021 Transcribed Document [facility] [place] [facility] [place] [address] ProviderElyssa MD [facility] [place] [address] Social History Tobacco Use Types [...] Conversion Note - Elyssa ProviderMD - 06/01/2021 11:10 AM CDT [facility] Main OR Preop Summary Primary Physician: STELLA ORTIZ MD-SUR Finalized Date/Time: 06/01/21 10:45:07 Pt. Name: GILDA JACOBS /Sex: 1970 Female Med Rec #: [id number] Physician: STELLA ORTIZ MD-SUR Financial #: [id number] Pt. Type: O Room/Bed: Admit/Disch: 06/01/21 06:19:00 - Institution: [facility] PreOp Case Times Entry 1 In Preop 06/01/21 06:54:00 Ready for Holding n/a Room Patient Ready for 06/01/21 10:40:00 Surgery Patient Out of Preop 06/01/21 10:45:00 Patient Out of n/a Holding Room Last Modified By: TYRON HIDALGO RN 06/01/21 10:44:54 [facility] PreOp Case Times Audit 06/01/21 10:44:54 Crocodile Farmer: [place] Modifier: [email or web address] <+> 1 Patient Out of Preop <+> 1 Patient Ready for Surgery Finalized By: TYRON HIDALGO, RN Document Signatures Signed By: TYRON HIDALGO RN 06/01/21 10:45 Electronically signed by Christoph [facility] Conversion Woodenware Assembler Cerner at 01/18/2023 12:43 PM CDT documented in this encounter Plan of Treatment Not on file documented as of this encounter Visit Diagnoses Not on filedocumented in this encounter
--- OUTSIDE RECORDS SUMMARY | 2025-05-12 07:00 | XMS_ITS | Encounter Summary ---
Author Organization [employer] ([place], [place], [place], [place]) Address [address] [place] [address] Care Team Providers Care Business Relationship Manager Name Role Phone Unavailable Primary Care Provider Unavailabl e Encounter Details Date Type Department Care Team (Late st Contact Info) Description 06/14/2021 Transcribed Document [facility] Radiology [address] [place] [address] Ezra Colunga MD [address] [facility] [place] [id number] Social History Tobacco Use Types Packs/Day Years [...] Conversion Note - Ezra Colunga MD - 06/14/2021 6:40 PM EDT Please Modify Before Signing CLINICAL DOCUMENTATION CLARIFICATION FORM: Dear : Ezra Colunga Date / Time: 06/14/2021 / 14:40 Please exercise your independent, professional judgment in responding to the clarification form. Clinical indicators are provided on the bottom of this form for your review ___ Final Diagnosis on the Pathology report : Skin and subcutaneous tissue with marked acute and chronic inflammation, ulceration and necrosis ___ Progress Notes indicate: Non-healing right lower extremity ulceration Based on the pathological findings of Skin and subcutaneous tissue with marked acute and chronic inflammation, ulceration and necrosis, is this a confirmed diagnosis for this patient? [ x ] Yes, this is a secondary diagnosis for this patient [ ] Other (additional comments): [ ] Unable to determine Physician Signature: Date/Time: For continuity of documentation, please document condition throughout progress notes and discharge summary. Thank You. To be completed by CDI/Coding staff for physician review: Present Clinical Indicators - Signs / Symptoms / Labs Results and Location in Medical Record [ X ] Skin and subcutaneous tissue with marked acute and chronic inflammation, ulceration and necrosis Documented in pathology report on 06/01/2021 [ X ] Non-healing right lower extremity ulceration and underlying PVD Documented in Progress note on 06/02/[address] Jannette Butt Present Risk Factors Results and Location in Medical Record [ X ] HTN Documented in Progress note on 06/03/[address] Renny Marks [ X ] History of peripheral vascular disease Documented in Progress note on 06/03/[address] Renny Marks Present Treatments Results and Location in Medical Record [ X ] Naabn-abv-eeae amputation Documented in operative report on 06/01/[address] Ezra Colunga [ X ] Vascular Surgery consult Documented in operative report on 06/01/[address] Ezra Colunga CDS/Finishing Supervisor Plastic Sheets Signature: ScottyadenRobinson Phone #: Date/Time: 06/14/2021 / 14:40 This is a permanent part of the Medical Record Q45 2020 [facility] Reviewed: 12/2020 documented in this encounter Plan of Treatment Not on file documented as of this encounter Visit Diagnoses Not on filedocumented in this encounter
--- OUTSIDE RECORDS SUMMARY | 2025-05-12 07:00 | XMS_ITS | Encounter Summary ---
Author Organization [employer] ([place], [place], [place], [place]) Address [address] [place] [address] Care Team Providers Care Medical Assisting Program Director Name Role Phone Unavailable Primary Care Provider Unavailabl e Encounter Details Date Type Department Care Team (Late st Contact Info) Description 06/06/2021 Transcribed Document [facility] Family Medicine [address] [place] [address] ProviderElyssa MD [address] [place] [address] Social History Tobacco Use Types [...] Conversion Note - Historical ProviderMD - 06/06/2021 12:56 PM CDT Patient Education Materials Follows: documented in this encounter Plan of Treatment Not on file documented as of this encounter Visit Diagnoses Not on filedocumented in this encounter
--- OUTSIDE RECORDS SUMMARY | 2025-05-12 07:00 | XMS_ITS | Encounter Summary ---
Author Organization [employer] ([place], [place], [place], [place]) Address [address] [place] [address] Care Team Providers Care Network Systems Operator Name Role Phone Unavailable Primary Care Provider Unavailabl e Encounter Details Date Type Department Care Team (Late st Contact Info) Description 06/02/2021 Transcribed Document [facility] Radiology [address] [place] [address] Ezra Colunga MD [address] [facility] [place] [address] Social History Tobacco Use Types Packs/Day Years [...] Conversion Note - Ezra Colunga MD - 06/02/2021 11:39 AM EDT Patient: GILDA JACOBS Age: 51 Years Sex: Female : 1970 Subjective NAD. No acute events overnight. Denies pain. Intake & Output Intake & Output Totals Last 24 Hours (7a-7a) Intake (17 Events) Continuous Infusions (366.6667 mL) Medications (52.72 mL) Surgical Services Intake (600 mL) Output (0 Events) No output events found in the last 24 hours. Input Total: 1019.3867 mL Output Total: 0 mL Balance: 1019.3867 mL Vital Signs T: 36.9 ??C TMIN: 36.9 ??C TMAX: 37.8 ??C HR: 84(Monitored) RR: 16 BP: 146/92 SpO2: 97% Physical Exam NAD, responds to questions however not well oriented (baseline) Normal resp effort on 1L NC s/p RT AKA, dressed, no signs of drainage VTE Risk Total Score VTE Prophylaxis - Surgical Aspirin 325 mg, Oral, Tab, Daily, Routine, Start 06/01/21 12:43:00 EDT, 06/01/21 12:43:00 EDT (EZRA COLUNGA) Cilostazol 50 mg, Oral, Tab, BID, Routine, Start 06/01/21 12:43:00 EDT, 06/01/21 12:43:00 EDT (EZRA COLUNGA) Sequential Compression Device Start: 06/01/21 12:13:00 EDT, Bilateral, While in Bed, to nonoperative leg ONLY, Continuous Order (EZRA COLUNGA) Assessment/Plan LEFT CLI - s/p LT AKA 06/01 - Will change dressing Tues 06/06 unless saturated - Pain control: royer 1200 TID, PRN opioids (has not required any), PRN tylenol Allergies No Known Medication Allergies documented in this encounter Plan of Treatment Not on file documented as of this encounter Visit Diagnoses Not on filedocumented in this encounter
--- OUTSIDE RECORDS SUMMARY | 2025-05-12 07:01 | XMS_ITS | Encounter Summary ---
Author Organization [employer] ([place], [place], [place], [place]) Address [address] [place] [address] Care Team Providers Care Plsql Developer Name Role Phone Unavailable Primary Care Provider Unavailabl e Encounter Details Date Type Department Care Team (Late st Contact Info) Description 06/04/2021 Transcribed Document [facility] Family Medicine [facility] [place] [address] ProviderElyssa MD [facility] [place] [address] Social History Tobacco Use Types [...] Cerner Conversion Note - Elyssa ProviderMD - 06/04/2021 8:25 AM CDT Evaluation, Occupational Therapy Entered On: 06/05/2021 13:07 EDT Performed On: 06/05/2021 10:39 EDT by CLARE REYES, OTR/L General Information, OT Visit Type, OT : Initial evaluation Patient Orders : Order Date Order Ordering MD 06/04/2021 08:34 OT Evaluation and Treatment Ordered By: SRI HAYES MD-[facility] Active Diagnoses : 06/01/2021 12:00 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, unspecified extremity Therapy Diagnosis, OT : Decreased independence in ADLs and functional mobility Onset of Problem, OT : 06/01/2021 EDT Admission Date : 06/01/2021 16:38 Personal Devices : Personal Devices No Devices Recorded Assistive Devices : Assistive Devices No Devices Recorded General Information Comment, OT : Dx: s/p R AKA, hip/knee/elbow/neck contractures CLARE REYES OTR/Annelise - 06/05/2021 13:00 EDT General Status Patient Received Status : Supine in bed Treatment Start Time : 06/05/2021 10:24 EDT Patient Left Status : Supine in bed, RN/PCT informed, All needs met and within reach RN/PCT Informed Comment : PARESH newmaned evaluation. Treatment End Time : 06/05/2021 10:39 EDT Treatment Time : 15 Minute(s) CLARE REYES OTR/Annelise - 06/05/2021 13:00 EDT History and Environment, OT Living Situation, Therapy : [facility] unit[facility]facility Persons Providing Information : Patient, Child/Children Home Equipment, Therapy : Wheelchair Wheelchair : Wheelchair, standard Home Setup : One story Bedroom Location : Main level Bathroom #1 Location : Main level Stairs : No CLARE REYES OTR/Annelise - 06/05/2021 13:00 EDT Prior LOF Bathing, OT : Dependent Prior LOF Bed Mobility : Dependent Prior LOF Upper Body Dressing, OT : Assist needed Prior LOF Lower Body Dressing, OT : Dependent Prior LOF Toileting : Assist needed Prior LOF Transfer : Dependent Prior LOF Grooming, OT : Assist needed Prior LOF Wheel Chair Mobility : Dependent Prior LOF for IADLs, OT : Assist needed CLARE REYES OTR/Annelise - 06/05/2021 13:00 EDT Upper Extremity Upper Extremity Dominance : Right Right UE Active ROM : Impaired Right UE Passive ROM : Impaired Right UE Strength : Impaired CLARE REYES OTR/Annelise - 06/05/2021 13:00 EDT Right Upper Extremity Detailed ROM Grid Right Shoulder Flexion Range Right Elbow Extension Range Passive : 0-45 0-90 CLARE REYES OTR/Annelise - 06/05/2021 13:00 EDT CLARE REYES OTR/Annelise - 06/05/2021 13:00 EDT Left UE Active ROM : Impaired Left UE Passive ROM : Impaired Left UE Strength : Impaired CLARE REYES OTR/Annelise - 06/05/2021 13:00 EDT Left Upper Extremity Detailed ROM Grid Left Shoulder Flexion Range Left Elbow Extension Range Passive : 0-45 0-90 MIRA REYESLEY Claudia OTR/L - 06/05/2021 13:00 EDT ERIC CLARE A OTR/L - 06/05/2021 13:00 EDT Upper Extremity Strength Impaired : No Right UE Strength : Impaired Left UE Strength : Impaired ERIC CLARE Claudia OTR/L - 06/05/2021 13:00 EDT Self Care/Home Management, OT Self Feeding Assist Level, OT : Assist, maximal Grooming Assist Level, OT : Assist, maximal Bathing Assist Level, OT : Assist, total Upper Body Dressing Assist Level, OT : Assist, maximal Lower Body Dressing Assist Level, OT : Assist, total Toileting Assist Level : Assist, maximal Toilet Transfer Assist Level : Assist, total ERIC CLARE A OTR/L - 06/05/2021 13:00 EDT Functional Mobility Mobility Grid Supine to Sit : Rehab Maximal assistance Sit to Supine : Rehab Maximal assistance REYESCLARE OTR/L 06/05/2021 13:00 EDT Cognition Assessment, OT Orientation : Oriented x 4 ERIC CLARE Claudia OTR/L - 06/05/2021 13:00 EDT Indication Assessment, OT Occupational Therapy Indicated : Yes Problem List, OT : Impaired, bed mobility, Impaired, activities daily living, Impaired, endurance tolerance, Impaired functional mobility Potential Barriers, OT : Acuity of illness Rehabilitation Potential, OT : Ken VÁSQUEZMANCLARE OTR/L - 06/05/2021 13:00 EDT Plan of Care, OT OT Tx Plan/Goals Established w Patient : Yes OT Frequency Rehab : Five days per week OT Duration Rehab : Fourteen days OT Treatments Planned : Activities of daily living, Functional mobility training, Pain management, Safety education, Therapeutic activities ERICCLARE Claudia OTR/L - 06/05/2021 13:00 EDT Manager Employee Relations Goals, OT Self Feeding LTG Grid Goal #1 Activity : Hand to mouth Assist : Assist, moderate Equipment : Other: AE PRN Date to Meet : 06/19/2021 EDT Goal Status : Initial ERIC CLARE Taylor OTR/L - 06/05/2021 13:00 EDT Grooming LTG Grid Goal #1 Activity : Grooming Assist : Assist, moderate Date to Meet : 06/19/2021 EDT Goal Status : Initial goal CLARE REYES OTR/Annelise - 06/05/2021 13:00 EDT Bed Mobility/ Bed Transfer LTG Grid Goal #1 Activity : Bed Mobility/Bed Transfer Assist : Assist, moderate Date to Meet : 06/19/2021 EDT Goal Status : Initial goal CLARE REYES OTR/Annelise - 06/05/2021 13:00 EDT Treatment Note Subjective Comment : Pt was agreeable. Patient's Response to Treatment : Pt tolerated evaluation well. Additional Objective Information : Pt was found supine upon arrival. Pt participated in formal evaluation questioning, along with pt's daughter. Pt to EOB with maxA x2, maintaining sitting balance with totalA for ~5minutes. Pt demonstrated impaired ROM and strength due to UE contractures of wrist, elbow, shoulder, and neck. Pt returned to supine and was left with all needs met and CL in reach. CLARE REYES OTR/L - 06/05/2021 13:00 EDT Assessment : Pt will benefit from skilled OT services during this hospital admission. OTR/L has reviewed and agrees with documentation JORDIN VERGARA OTR/L - 06/07/2021 14:56 EDT Plan for Treatment : See OT goals. CLARE REYES OTR/L - 06/05/2021 13:00 EDT Pain Assessment Pain Scaled Used : 0-10 Pain scale Pain Score Pre-Intervention : 0 CLARE REYES OTR/L - 06/05/2021 13:00 EDT Image 1 - Images currently included in the form version of this document have not been included in the text rendition version of the form. Anticipated Discharge Needs, OT/PT Anticipated Discharge to : Unit, half-way CLARE REYES OTR/L - 06/05/2021 13:00 EDT [place] OT Charges OT Eval Low Complexity : 1 CLARE REYES OTR/L - 06/05/2021 13:00 EDT documented in this encounter Plan of Treatment Not on file documented as of this encounter Visit Diagnoses Not on filedocumented in this encounter
--- OUTSIDE RECORDS SUMMARY | 2025-05-12 07:01 | XMS_ITS | Encounter Summary ---
Author Organization [employer] ([place], [place], [place], [place]) Address [address] [place] [address] Care Team Providers Care Brickmason Supervisor Name Role Phone Unavailable Primary Care Provider Unavailabl e Encounter Details Date Type Department Care Team (Late st Contact Info) Description 06/07/2021 Transcribed Document [facility] [place] [facility] [place] [address] ProviderElyssa MD [facility] [place] [address] Social History Tobacco Use Types [...] Conversion Note - Historical ProviderMD - 06/07/2021 9:39 AM CDT Patient: GILDA JACOBS Age: 51 Years Sex: Female : 1970 Admit Date 06/01/2021 16:38 Discharge Date June 07, 2021 at 9:30 AM. Primary Care Provider ARNALDO VELA Discharge Diagnosis Chronic RIGHT FOOT Wound Peripheral Vascular Disease AKA 06/01/2021 HTN CAD Chronic Contractures Non-Ambulatory Hypothyroidism Chronic Pain Chronic Narcotic Therapy Procedures SN - Proc - Procedure: Leg Amputation Above Knee (06/01/21 11:36:51) Reason for Hospitalization Right lower extremity ischemia Hospital Course This is a 51-year-old female that normally resides in a local long term and is non-ambulatory. Her past medical history significant for chronic contractures, chronic pain, chronic narcotic therapy, peripheral vascular disease, coronary artery disease, hypertension and hypothyroidism. She was admitted and vascular surgery was consulted. She underwent AKA with no identified complications. Wound care was consulted and followed the patient with routine dressing changes. Her laboratory studies remained stable. PT and OT evaluated the patient. Case management assisted with discharge plans back to her long term facility. Vital Signs T: 36.7 ??C TMIN: 36.7 ??C TMAX: 37.1 ??C HR: 62(Monitored) RR: 16 BP: 146/87 SpO2: 99% Oxygen Settings (Last) Oxygen Therapy Mode: Room air (06/05/21 22:00:00) Oxygen Flow Rate: 1 Liter/Min (06/04/21 08:00:00) Physical Exam General: Alert and oriented, thin, [...] muscle tone with contractures, Right LE dressing Skin: Skin is warm, dry and pink, no diffuse rashes. Neurologic: Awake, alert, sensory intact. Psychiatric: Cooperative, appropriate mood and affect. Discharge Disposition Longterm Facility Discharge Follow Up STELLA ORTIZ - Within 3 weeks Discharge Medications (25) Active aspirin 325 mg oral tablet 325 mg = 1 Tab, Oral, Daily baclofen 10 mg oral tablet 10 mg = 1 Tab, Oral, Daily CeleXA 40 mg oral tablet 40 mg = 1 Tab, Oral, Daily cetirizine 10 mg oral tablet 10 mg = 1 Tab, Oral, Daily Colace 100 mg oral capsule 300 mg = 3 Cap, PRN, Oral, BID Coreg 12.5 mg oral tablet 12.5 mg = 1 Tab, Oral, BID Ditropan XL 5 mg/24 hours oral tablet, extended release 5 mg = 1 Tab, Oral, Daily Dulcolax Laxative 10 mg rectal suppository , PRN, Rectal, Daily famotidine 40 mg oral tablet 40 mg = 1 Tab, Oral, Daily fluticasone 50 mcg/inh nasal spray 2 [place], Nasal, At Bedtime furosemide 40 mg oral tablet 40 mg = 1 Tab, Oral, BID gabapentin 600 mg oral tablet 1,200 mg = 2 Tab, Oral, TID ICaps AREDS oral tablet 1 Tab, Oral, Daily levothyroxine 150 mcg (0.15 mg) oral tablet 150 mcg = 1 Tab, Oral, Daily Lipitor 20 mg oral tablet 20 mg = 1 Tab, Oral, Daily LORazepam 0.5 mg oral tablet 0.5 mg = 1 Tab, PRN, Oral, BID morphine 15 mg, 1/2 tablet (7.5 mg) PRN, Oral, TID MS Contin 30 mg oral tablet, extended release 30 mg = 1 Tab, PRN, Oral, At Bedtime Pletal 50 mg, Oral, BID potassium chloride extended release 20 mEq, Oral, Daily Senokot S 50 mg-8.6 mg oral tablet 2 Tab, Oral, TID traZODone 100 mg, PRN, Oral, At Bedtime TRENtal 400 mg, Oral, TID Tylenol Extra Strength 500 mg oral tablet 500 mg = 1 Tab, PRN, Oral, Q4H Vitamin C 500 mg oral tablet 1,000 mg = 2 Tab, Oral, Daily Code Status Start: 06/01/21 13:08:00 EDT, DNR Full Treatment-No Intubation/No ACLS, Continuous Order Condition on Discharge Improved and stable Consulting Physicians NITA LEMONS, -ANS Patient Discharge Summary Orders Discharge Activity: Activity as tolerated Diet: Resume usual diet as tolerated Isolation precautions: Routine social distancing, facemask use with contact and droplet precautions Time Spent on Discharge I spent greater than 30 minutes in amku-fg-bbzy time with the patient concerning the discharge process. We discussed the admitting diagnoses and the hospital course. We discussed identified improvement and the patient's desire to be discharged. We reviewed inpatient studies and imaging. The patient plans to be compliant with the medication regimen prescribed. She understands that she can return to the emergency department with any sudden changes or concerns. documented in this encounter Plan of Treatment Not on file documented as of this encounter Visit Diagnoses Not on filedocumented in this encounter
--- OUTSIDE RECORDS SUMMARY | 2025-05-12 07:01 | XMS_ITS | Encounter Summary ---
Author Organization [employer] ([place], [place], [place], [place]) Address [address] [place] [address] Care Team Providers Care Embroidery Cutter Name Role Phone Unavailable Primary Care Provider Unavailabl e Encounter Details Date Type Department Care Team (Late st Contact Info) Description 06/07/2021 Transcribed Document [facility] Family Medicine [facility] [place] [address] ProviderElyssa MD [facility] [place] [address] Social History Tobacco Use Types [...] Cerner Conversion Note - Elyssa ProviderMD - 06/07/2021 1:49 PM CDT Final Discharge Planning Entered On: 06/07/2021 13:56 EDT Performed On: 06/07/2021 13:49 EDT by MEENU DUNNE RN - Office Automation Technician Final Discharge Planning Discharge Arrangements : Patient Post-Acute Information Patient Name: GILDA JACOBS Gender: Female : [birth year] Age: 51 Years No Post-Acute Placement(s) Listed No Post-Acute Service(s) Listed No [place] Referral(s) Listed Patient Offered Choice/Affiliations Explained : Yes Important Medicare Message Reviewed With : Other: Diogenes Peck Important Medicare Message Reviewed D/T : 06/07/2021 13:50 EDT Transportation Needs : Wheelchair van Discharge Transportation Arrangement Cmt : Georgina 3pm Follow Up Appointment Scheduled : Yes Is Patient High/Moderate Readmission Risk? : No Patient/Family Notified of Plan : Yes Support Person/Pt Rep Notified of Plan : Yes Patient/Family Notified : diogenes Peck Is Patient Ready for Discharge? : Yes Physician Notified Patient is Ready for Discharge? : Yes Discharge To Care Management : SNF with Medicare Certification-03 MEENU DUNNE, RN - Office Automation Technician - 06/07/2021 13:49 EDT Final Narrative Note Final Narrative Note : CM spoke with the patient's daughter Krista Peck about her discharge back to [facility] where she resides. MEENU DUNNE RN - Office Automation Technician - 06/07/2021 13:49 EDT Electronically signed by Rl Hawthorne Conversion Conference And Event Organiser Cerner at 01/18/2023 12:27 PM CDT documented in this encounter Plan of Treatment Not on file documented as of this encounter Visit Diagnoses Not on filedocumented in this encounter
--- OUTSIDE RECORDS SUMMARY | 2025-05-12 07:01 | XMS_ITS | Encounter Summary ---
Author Organization [email or web address] ([place], [place], [place], [place]) Address [address] [place] [address] Care Team Providers Care Senior Quality Manager Name Role Phone Unavailable Primary Care Provider Nanette glass Encounter Details Date Type Department Care Team (Late st Contact Info) Description 06/05/2021 Transcribed Document [facility] Family Medicine [address] [place] [address] ProviderElyssa MD [address] [place] [address] Social History Tobacco Use Types [...] Conversion Note - Historical ProviderMD - 06/05/2021 5:00 AM CDT Chart Check - Review Order Profile Entered On: 06/05/2021 5:20 EDT Performed On: 06/05/2021 5:00 EDT by Zaynab Morataya RN Chart Check [employer] Initiated/Discontinued as Appropriate : Yes All Active Orders Reviewed : Yes Zaynab Morataya RN - 06/05/2021 5:20 EDT documented in this encounter Plan of Treatment Not on file documented as of this encounter Visit Diagnoses Not on filedocumented in this encounter
--- OUTSIDE RECORDS SUMMARY | 2025-05-12 07:01 | XMS_ITS | Encounter Summary ---
Author Organization [employer] ([place], [place], [place], [place]) Address [address] [place] [address] Care Team Providers Care Stock Dealer Name Role Phone Unavailable Primary Care Provider Unavailabl e Encounter Details Date Type Department Care Team (Late st Contact Info) Description 06/04/2021 Transcribed Document [facility] [place] [facility] Family Medicine [address] [place] [address] ProviderElyssa MD [address] [place] [address] Social History Tobacco Use Types [...] Note - Historical ProviderMD - 06/04/2021 5:00 AM CDT Chart Check - Review Order Profile Entered On: 06/04/2021 5:46 EDT Performed On: 06/04/2021 5:00 EDT by Eva Venegas V RN Chart Check Powerplans Initiated/Discontinued as Appropriate : Yes All Active Orders Reviewed : Yes Eva Venegas V RN - 06/04/2021 5:46 EDT documented in this encounter Plan of Treatment Not on file documented as of this encounter Visit Diagnoses Not on filedocumented in this encounter
--- OUTSIDE RECORDS SUMMARY | 2025-05-12 07:01 | XMS_ITS | Encounter Summary ---
Author Organization [employer] ([place], [place], [place], [place]) Address [address] [place] [address] Care Team Providers Care Director Of Safety And Security Name Role Phone Unavailable Primary Care Provider Unavailabl e Encounter Details Date Type Department Care Team (Late st Contact Info) Description 06/04/2021 Transcribed Document [facility] [place] [facility] [place] [address] ProviderElyssa MD [facility] [place] [address] Social History Tobacco Use Types [...] Conversion Note - Historical ProviderMD - 06/04/2021 8:25 AM CDT Evaluation, Physical Therapy Entered On: 06/05/2021 13:07 EDT Performed On: 06/05/2021 10:39 EDT by Rush Vines PHYSICAL YOMI NON-EXEMPT General Information, PT Visit Type, PT : Initial evaluation Patient Orders : Order Date Order Ordering MD 06/04/2021 08:34 PT Evaluation and Treatment Ordered By: SRI HAYES MD-[facility] Active Diagnoses : 06/01/2021 12:00 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 Patient has severe contractures throughout her entire body. Wheel chair bound Rush Vines PHYSICAL THERAPIST NON-EXEMPT - 06/05/2021 12:46 EDT General Status Patient Received Status : Supine in bed Treatment Start Time : 06/05/2021 10:24 EDT Patient Left Status : Supine in bed, RN/PCT informed, Family/Visitors at bedside, All needs met and within reach RN/PCT Informed Comment : RN ok'd PT eval Treatment End Time : 06/05/2021 10:39 EDT Treatment Time : 15 Minute(s) Rush Vines PHYSICAL THERAPIST NON-EXEMPT - 06/05/2021 12:46 EDT History and Environment Living Situation, Therapy : Jail unit[facility]facility Patient Lives With : Caregiver(s) Persons Assisting Patient at Home : Caregiver(s) Persons Providing Information : Patient, Family member(s) Home Equipment Therapy, PT : Other: Patient would benefit from a powered wheel chair due to severe contractures in her Upper extremities. Stairs : No Rush Vines PHYSICAL THERAPIST NON-EXEMPT - 06/05/2021 12:46 EDT Prior Level of Function PT GRID Prior LOF Ambulation, Household : Dependent Prior LOF Ambulation, Community : Dependent Prior LOF Bed Mobility : Dependent Prior LOF Toileting : Dependent Prior LOF Transfer : Dependent Prior LOF Wheel Chair Mobility : Assist needed Rush Vines PHYSICAL THERAPIST NON-EXEMPT - 06/05/2021 12:46 EDT Intervention Summary SpO2 Pre-Intervention : 95 % SpO2 During Intervention : 94 % Rush Vines PHYSICAL THERAPIST NON-EXEMPT - 06/05/2021 12:46 EDT Upper Extremity Right UE Active ROM : Impaired Right UE Strength : Impaired Left UE Active ROM : Impaired Left UE Strength : Impaired Rush Vines PHYSICAL THERAPIST NON-EXEMPT - 06/05/2021 12:46 EDT Lower Extremity LLE Active ROM : Impaired Left LE Strength : Impaired Rush Vines PHYSICAL THERAPIST NON-EXEMPT - 06/05/2021 12:46 EDT Left Lower Extremity Range of Motion Knee Flexion (0-140) Knee Extension (0-0) Passive : 140 -15 Rush Vines PHYSICAL THERAPIST NON-EXEMPT - 06/05/2021 12:46 EDT Rush Vines PHYSICAL THERAPIST NON-EXEMPT - 06/05/2021 12:46 EDT Functional Mobility Mobility Grid Bed Roll Right : Rehab Maximal assistance Bed Scooting : Rehab Maximal assistance Supine to Sit : Rehab Maximal assistance Sit to Supine : Rehab Maximal assistance Rush Vines PHYSICAL THERAPIST NON-EXEMPT - 06/05/2021 12:46 EDT Bed Mobility Scooting Device : Cloth under pad, Rails Supine to Sit Device : Cloth under pad, Rails Sit to Supine Devices : Cloth under pad, Rails Rush Vines PHYSICAL THERAPIST NON-EXEMPT - 06/05/2021 12:46 EDT Activity Tolerance, PT Activity Comment : Patient required max assist to perform bed mobility and transfers from supine to sitting and sitting to supine. She required max assist to maintain static sitting. Rush Vines PHYSICAL THERAPIST NON-EXEMPT - 06/05/2021 12:46 EDT Cognition Assessment, PT Cognition Assessment Comment : It is believed she is AOx4 however she is difficult to understand. Daughter informed PT that she uses her L arm to signal a no response and her R arm to signal yes Rush Vines PHYSICAL THERAPIST NON-EXEMPT - 06/05/2021 12:46 EDT Edu Topics Physical Therapy Education Grid Balance Training : Returns demonstration, Needs further teaching Bed Mobility Training : Returns demonstration, Needs further teaching Positioning : Returns demonstration, Needs further teaching Role of Physical Therapy : Verbalizes understanding Transfer Training : Returns demonstration, Needs further teaching Use of Assistive Device : Needs further teaching, Needs reinforcement Rush Vines PHYSICAL THERAPIST NON-EXEMPT - 06/05/2021 12:46 EDT Indication Assesessment, PT Physical Therapy Indicated : Yes PT Problem List : Impaired, activities daily living, Impaired, bed mobility, Impaired, coordination/proprioception, Impaired, endurance tolerance, Impaired, joint mobility, Impaired, sitting balance, Impaired, strength, Impaired, transfers Potential Barriers To Therapy : Acuity of Illness Rehabilitation Potential : At prior level of function Rush Vines PHYSICAL THERAPIST NON-EXEMPT - 06/05/2021 12:46 EDT Plan of Care, PT PT Tx Plan/Goals Established w Patient : Yes PT Frequency Rehab : Five days per week PT Duration Rehab : Fourteen days PT Treatments Planned : Balance training, Bed mobility training, Therapeutic exercises, Transfer training, Wheelchair management training Rush Vines PHYSICAL THERAPIST NON-EXEMPT - 06/05/2021 12:46 EDT Short Term Goals Mobility/Bed Mobility STG PT Grid Goal #1 Activity : Supine to sit Assist : Assist, moderate Equipment : Bed, hospital, Rail, bed Date to Meet : 06/12/2021 EDT Goal Status : Initial goal Rush Vines PHYSICAL THERAPIST NON-EXEMPT - 06/05/2021 12:46 EDT Transfer STG Grid Goal #1 Destination : Wheelchair, standard Type : Stand Pivot Sit Assist : Assist, moderate Equipment : Belt, gait, Walker, front wheel Date to Meet : 06/12/2021 EDT Goal Status : Intial Goal Rush Vines PHYSICAL THERAPIST NON-EXEMPT - 06/05/2021 12:46 EDT Processing Engineer Goals Mobility/Bed Mobility LTG PT Grid Goal #1 Activity : Supine to sit Equipment : Bed, hospital, Rail, bed Date to Meet : 06/19/2021 EDT Goal Status : Intial Goal Rush Vines PHYSICAL THERAPIST NON-EXEMPT - 06/05/2021 12:46 EDT Transfer LTG Grid Goal #1 Destination : Wheelchair, standard Type : Stand Pivot Sit Assist : Assist, minimal Equipment : Belt, gait, Rail, bed, Walker, front wheel Date to Meet : 06/19/2021 EDT Goal Status : Intial Goal Rush Vines PHYSICAL THERAPIST NON-EXEMPT - 06/05/2021 12:46 EDT Treatment Note Subjective Comment : RN ok'd PT eval. Patients daughter was in the room and provided PT with history and current living statues. Assessment : Patient presents with decreased activity tolerance, limited LLE ROM and strength. Patients transfers are her biggest goal to decrease the amount of assistance needed. Patient would be appropriate for a power chair due to having severe UE contractures that would limit her ability to propel a manual W/c. Patient is appropriate for PT services to meet her goals. Plan for Treatment : follow PT poc Rush Vines PHYSICAL THERAPIST NON-EXEMPT - 06/05/2021 12:46 EDT Pain Assessment Pain Scaled Used : 0-10 Pain scale Pain Score Pre-Intervention : 0 Pain Score During-Intervention : 0 Rush Vines PHYSICAL THERAPIST NON-EXEMPT - 06/05/2021 12:46 EDT Image 1 - Images currently included in the form version of this document have not been included in the text rendition version of the form. Anticipated Discharge Needs, OT/PT Anticipated Discharge to : Unit, detention Anticipated Home Equipment : Other: power wheel chair Recommend Continued Therapy at Discharge : Yes Rush Vines PHYSICAL THERAPIST NON-EXEMPT - 06/05/2021 12:[address] [facility] PT Charges PT Eval Low Complexity : 1 Rush Vines PHYSICAL THERAPIST NON-EXEMPT - 06/05/2021 12:46 EDT documented in this encounter Plan of Treatment Not on file documented as of this encounter Visit Diagnoses Not on filedocumented in this encounter
--- OUTSIDE RECORDS SUMMARY | 2025-05-12 07:01 | XMS_ITS | Encounter Summary ---
Author Organization [employer] ([place], [place], [place], [place]) Address [address] [place] [address] Care Team Providers Care Felt Hat Flanging Operator Name Role Phone Unavailable Primary Care Provider Unavailabl e Encounter Details Date Type Department Care Team (Late st Contact Info) Description 06/05/2021 Transcribed Document [facility] – [place] Family Medicine [facility] [place] [address] ProviderElyssa MD [address] [place] [address] Social History Tobacco Use [...] Conversion Note - Historical ProviderMD - 06/05/2021 11:33 AM CDT Patient: GILDA JACOBS Age: 51 Years Sex: Female : 1970 Subjective Patient voices no acute events overnight. Nursing staff report that she remains stable. They report that she remains afebrile with stable vital signs and saturating appropriately on 1 L of supplemental oxygen. She is due for her dressing change tomorrow. Review of systems Constitutional: No fever, no chills Respiratory: No acute dyspnea, no cough Cardiovascular: No chest pain, no palpitation, no increasing pedal edema GI: No nausea, vomiting or diarrhea Neuro: No confusion, no acute motor or sensory changes Vital Signs T: 36.9 ??C TMIN: 36.4 ??C TMAX: 37.2 ??C HR: 64(Monitored) RR: 18 BP: 133/81 SpO2: 94% Oxygen Settings (Last) Oxygen Therapy Mode: Nasal cannula (06/04/21 08:00:00) Oxygen Flow Rate: 1 Liter/Min (06/04/21 08:00:00) Intake & Output Totals Last 24 Hours (7a-7a) Input Total: 536 mL Output Total: 0 mL Balance: 536 mL Physical Exam General: Alert and oriented, [...] Assessment/Plan Chronic right foot wound postop day 4 status post right AKA ???History of peripheral [...] replacement therapy The patient is hospitalized day 4 on the Medr unit with right AKA complicated by her above diagnoses and comorbidities. We appreciate vascular rn surgery and we will continue with routine objective evaluations to assess her progress. Expected discharge pending at this time. Anticipated discharged back to her [place] facility tomorrow after her dressing change. We appreciate case store management trainee assisting with routine evaluations to transition her [...] 50 mcg/inh nasal spray, 100 mcg= 2 [place], Nasal, At Bedtime furosemide, 40 mg= 1 [...] mg= 1 Tab, Oral, At Bedtime, PRN [place] 10 mg-325 mg oral tablet, 1 Tab, Oral, Q4H, PRN [place] 5 mg-325 mg oral tablet, 1 Tab, Oral, Q4H, PRN [place] 7.5 mg-325 mg oral tablet, 2 Tab, [...]
--- OUTSIDE RECORDS SUMMARY | 2025-05-12 07:01 | XMS_ITS | Encounter Summary ---
Author Organization [employer] ([place], [place], [place], [place]) Address [address] [place] [address] Care Team Providers Care Collar Fuser Name Role Phone Unavailable Primary Care Provider Unavailabl e Encounter Details Date Type Department Care Team (Late st Contact Info) Description 06/04/2021 Transcribed Document [facility] [place] [address] [place] [address] ProviderElyssa MD [address] [place] [address] Social History Tobacco Use Types [...] Conversion Note - Historical ProviderMD - 06/04/2021 2:00 AM CDT Recreational Therapy Technician Details Entered On: 06/04/2021 0:36 EDT Performed On: 06/04/2021 2:00 EDT by Eva Venegas V RN [...] : No Eva Venegas V, RN - 06/04/2021 0:36 EDT documented in this encounter Plan of Treatment Not on file documented as of this encounter Visit Diagnoses Not on filedocumented in this encounter
[2025-05-12 07:10] LABS: Hematocrit 40.1 % (37.0-47.0); Hemoglobin 13.3 g/dL (12.2-16.2); Mean Corpuscular HGB Conc 33.2 g/dL (31.8-35.4); Mean Corpuscular Hemoglobin 29.2 pg (27.0-31.2); Mean Corpuscular Volume 88.1 fl (81-99); Platelet Count 286 K/mm3 (142-424); Red Blood Count 4.55 M/mm3 (4.20-5.40); White Blood Count 5.9 K/mm3 (4.8-10.8)
[2025-05-12 07:31] LABS: Chloride 107 mmol/L (98-107)
[2025-05-12 07:32] LABS: Albumin Level 4.2 g/dl (3.5-5.0); Potassium 4.0 mmoL/L (3.5-5.1); Sodium 140 mmol/L (136-145)
[2025-05-12 07:34] LABS: Blood Urea Nitrogen 10 mg/dl (7-17); Creatinine,Serum 0.40 mg/dl (0.52-1.04); Estimated Glomerular Filt Rate 165 ml/min (>60); GFR (African American) 199 ML/MIN (>60)
[2025-05-12 07:35] LABS: Alanine Aminotransferase 21 U/L (12-78); Albumin/Globulin Ratio 1.5 (1.1-1.8); Alkaline Phosphatase 81 U/L (38-126); Anion Gap 8.0 mEq/L (5-15); Aspartate Amino Transferase 26 U/L (14-36); Bilirubin,Total 0.4 mg/dl (0.2-1.3); Calcium 9.1 mg/dl (8.4-10.2); Carbon Dioxide 29 mmol/L (22.0-30.0); Globulin 2.8 g/dL (1.3-3.2); Glucose 100 mg/dl (74-100); Total Protein,Serum 7.0 g/dl (6.3-8.2)
[2025-05-12 07:54] LABS: Free T4 (Free Thyroxine) 1.75 ng/dl (0.78-2.19)
[2025-05-12 08:08] LABS: Thyroid Stimulating Hormone 0.97 uIU/mL (0.465-4.68)
[2025-05-12 08:19] LABS: RBC Morphology Normal
[2025-05-12 08:22] LABS: Total Cells Counted 100
[2025-05-12 08:24] LABS: Hepatitis C Ab Qual. W/ RFX NEGATIVE (Negative)
== END 2025-05-12 23:59 | disposition home or self-care (01) ==
PROVIDERS: PCP Nurse Practitioner Family; Visit Provider Nurse Practitioner Family
DX: E03.9 Hypothyroidism, unspecified (principal); I10 Essential (primary) hypertension; R77.0 Abnormality of albumin; Z11.4 Encounter for screening for human immunodeficiency virus [HIV]; Z11.59 Encounter for screening for other viral diseases
CPT/HCPCS: 36415; 80053; 84439; 84443; 85007; 85014; 85018; 85048; 85049; 86803; 87389

== ENCOUNTER 2025-06-07 13:50 | Emergency (ER) | payer MEDICARE, MEDICAID, SELFPAY ==
--- OUTSIDE RECORDS SUMMARY | 2018-01-24 06:20 | XMS_ITS | Continuity of Care Document ---
Author Organization [address] [place] [address] [address] 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 Name Role Phone Maribell Wheeler NP Unavailable Micaela vailable Allergies, Adverse Reactions, Alerts Substance Reaction Status Criticality No Known Allergies Active No Inform ation Medications Medication Instructions Dosage Effective Dates (start - stop) Status Comments lorazepam 0.5 mg tablet - Ac tive oxybutynin chloride ER 5 mg tablet,extended release 24 hr - Active baclofen 10 mg tablet - Acti ve citalopram 20 mg tablet - Ac tive potassium chloride ER 10 mEq tablet,extended release - Active Premarin 0.625 mg tablet - A ctive fentanyl 25 mcg/hr transdermal patch - Active hydrocodone 5 mg-acetaminophen 325 mg tablet - Active tramadol 50 mg tablet - Acti ve trazodone 100 mg tablet - Ac tive gabapentin 600 mg tablet - A ctive polyethylene glycol 3350 17 gram/dose oral powder - Active fluticasone 50 mcg/actuation nasal spray,suspension - Active lactulose 10 gram/15 mL oral solution - Active levothyroxine 100 mcg tablet - Active furosemide 40 mg tablet - Ac tive pentoxifylline ER 400 mg tablet,extended release - Active carvedilol 12.5 mg tablet - Active atorvastatin 20 mg tablet - Active azithromycin 250 mg tablet - Active Advance Directives Directive Yes / No Effective Date File Name Life Support Not Answered N/A N/A Other Directive No N/A N/A WARNING:The information contained in this section is historical and is provided for information only and does not constitute a legal document or any assurance that the information is still accurate. Please verify the information with the bloom of the legal document before using it for clinical purposes. Encounters Encounter Description Practice Location Reason(s) For Visit Diagnoses Date Provider Providers Copied on Encounter [address] [place] [address], [address], [place], [place], [id number], [place] tel:[phone] [facility] No Information [address] [address] [facility], [address], [place], [address], [place]. Family History Family Member Type Diagnosis Age At Onset No Information Payers Payer name Insurance type Covered alliance party ID Authoriza tion(s) No Information Social History Type Description Quantity Date Captured Comments Alcohol Use Details Unknown Caffeine Use Details Unknown Tobacco Use Status No Information Smoking Status No Information Sex Female Chief Complaint And Reason For Visit No Information Reason For Referral Reason For Referral No Information Plan Of Treatment Date Type Action Status Appointment Kelly Lo BOOKED History Of Present Illness Encounter Date Complaint History Of Prese nt Illness No Information Functional Status Date Functional Assessmen t No Information Instructions Date Instruction Additional Infor mation No Information Assessments Type Assessment Date No Information Patient Care Teams Name Effective Dates (start - stop) Status Members No Information
[2025-06-07] VITALS (10 sets, daily range): BP systolic 72–102; BP diastolic 43–66; PULSE 46–73; RESP 18–19; TEMP 36.7; O2SAT 95–100; BMI 14.0
--- NOTE | 2025-06-07 13:51 | ECG_ITS ---
APPROVED REPORT Exam: Resting ECG HR:68 bpm ECG Measurements Heart Rate 68 AXES VA 126 P 42 QRSd 82 QRS 20 QT 421 T 11 QTc 438 Conclusion SINUS RHYTHM NONSPECIFIC T-WAVE ABNORMALITY BORDERLINE ECG UNCONFIRMED REPORT Electronically signed by : PAVAN SCHREIBER, 06/07/2025 23:03:06
--- NOTE | 2025-06-07 13:54 | XR_ITS ---
PROCEDURE INFORMATION: Exam: XR Chest Exam date and time: 06/07/2025 3:41 PM Age: 55 years old Clinical indication: Other: AMS TECHNIQUE: Imaging protocol: Radiologic exam of the chest. Views: 1 view. COMPARISON: CR XR CHEST PORTABLE 01/31/2024 2:36 PM FINDINGS: Limitations: There is thoracic kyphosis causing the patient's skull and jaw to project over the upper chest, requiring frontal oblique imaging. Lungs: Unremarkable. No consolidation. Pleural spaces: Unremarkable. No gross pleural effusion. No pneumothorax. Heart/Mediastinum: Unremarkable. No cardiomegaly. Bones/joints: Unremarkable. Gastrointestinal tract: The visible upper abdomen demonstrates a mildly dilated air-filled colon with the transverse colon measuring 7 cm in diameter. There are also air-filled loops of small bowel with no definite dilation. This appearance is stable compared to the previous chest radiograph. IMPRESSION: 1. No acute cardiopulmonary process. 2. Stable air-filled visible colon with mild dilation. There are also air-filled loops of small bowel with no definite dilation. Findings may represent ileus. Correlation with abdominal radiographs are recommended.
--- NOTE | 2025-06-07 13:54 | CT_ITS ---
PROCEDURE INFORMATION: Exam: CT Head Without Contrast Exam date and time: 06/07/2025 3:50 PM Age: 55 years old Clinical indication: Altered mental status/memory loss; Additional info: AMS TECHNIQUE: Imaging protocol: Computed tomography of the head without contrast. Radiation optimization: All CT scans at this facility use at least one of these dose optimization techniques: automated exposure control; mA and/or kV adjustment per patient size (includes targeted exams where dose is matched to clinical indication); or iterative reconstruction. COMPARISON: CT HEAD/BRAIN WO CON 01/31/2024 2:34 PM FINDINGS: Brain: There is stable, advanced, diffuse cerebral atrophy. The brain is otherwise stable with no acute findings. Cerebral ventricles: Stable ex vacuo dilatation of the lateral and 3rd ventricles. Paranasal sinuses: Visualized sinuses are unremarkable. No fluid levels. Mastoid air cells: Visualized mastoid air cells are well aerated. Bones: Unremarkable. No acute fracture. Soft tissues: Unremarkable. Vasculature: Unremarkable, IMPRESSION: 1. No acute intracranial pathology. 2. Stable chronic changes of the intracranial structures.
--- NOTE | 2025-06-07 13:58 | HMH.EDGENADL ---
Discharge Plan Disposition Patient Disposition: Xfer Other Condition: Good Prescriptions Prescriptions: No Action bisacodyl 5 mg tablet,delayed release (DR/EC) 10 mg PO DAILY PRN bisacodyl 5 mg tablet 10 mg PO HS levothyroxine 150 mcg tablet 150 mcg PO QAM Qty: 90 3RF cetirizine 10 mg tablet 10 mg PO DAILY bisacodyl 10 mg suppository 10 mg WI DAILY PRN Fleet Enema 19-7 gram/118 mL enema 118 ml WI DAILY PRN acetaminophen 500 mg tablet 500 mg PO Q4H PRN (Reason: fever or pain) albuterol sulfate 90 mcg/actuation HFA aerosol inhaler 2 puff INHALATION Q6H PRN (Reason: Wheezing. Cough) baclofen 10 mg tablet 10 mg PO TID cilostazol 50 mg tablet 50 mg PO BID famotidine 20 mg tablet 20 mg PO HS multivitamin Tablet 1 tab PO DAILY Deep Sea Nasal 0.65 % aerosol,spray 2 spray intranasal Q4H PRN Rx Instructions: while awake pseudoephedrine HCl 30 mg tablet 30 mg PO Q4-6H PRN Rx Instructions: DNExceed 4 doses/24h magnesium hydroxide [Milk of Magnesia] 400 mg/5 mL suspension 30 ml PO DAILY PRN aspirin 325 mg tablet 325 mg PO DAILY polyvinyl alcohol 1.4 % drops 1 drp Eye-Both BID Artificial Tears([id number]) 1-0.2-0.2 % drops 1 drp ophthalmic (eye) BID PRN morphine 30 mg tablet extended release 30 mg PO DAILY Qty: 30 0RF gabapentin 600 mg tablet 1,200 mg PO TID Qty: 180 5RF lorazepam 0.5 mg tablet 0.5 mg PO BID Qty: 60 5RF carvedilol 3.125 mg tablet 3.125 mg PO BID citalopram 20 mg tablet 20 mg PO DAILY trazodone 100 mg tablet 100 mg PO HS Linzess 290 mcg capsule 290 mcg PO QHS Activity Restrictions/Add. Instructions Additional Instructions/Restrictions: Return to the emergency department if needed. Clinical Impressions Clinical Impression: AMS (altered mental status) Instructions Patient Instructions: DI for Altered Mental Status Print Language Print Language: Spanish Discharge ED Provider: Hakeem Escobar General Adult HPI <Hakeem Escobar MD - Last Filed: 06/07/25 15:42> General Chief complaint: Altered Mental Status Stated complaint: not responding to staff Time Seen by Provider: 06/07/25 13:54 Mode of Arrival: EMS Source of Information: EMS Limitations: No Limitations History of Present Illness HPI narrative: Kelly Lo is a 55y female with a history of MS, chronic contractures, Prior CVA, hypertension, peripheral artery disease who presents to the emergency department from patient's snf for concern for altered mental status. Per EMS, patient was moved [facility] nursing on Saturday of this past week. Reportedly, patient had not received any of her gabapentin, morphine, Ativan, Benadryl or other medications over the weekend and they gave her all of them at once this morning. Supposedly she was altered prior to this but allegedly became unresponsive. Per EMS, patient would respond to them throughout the transport. Patient is sleeping but will wake with verbal stimuli and follow commands. She is chronically contractured at baseline with minimal limited verbal capacity according to previous charts. She will follow commands and move her legs as well as eyes in all directions on command. Related Data Home Medications ?Medication ?Instructions ?Recorded ?Confirmed carvedilol 3.125 mg tablet 3.125 mg PO BID Heart 11/15/22 05/11/25 citalopram 20 mg tablet 20 mg PO DAILY Anxiety and 11/15/22 05/11/25 Depression trazodone 100 mg tablet 100 mg PO HS Sleep 11/15/22 05/11/25 acetaminophen 500 mg tablet 500 mg PO Q4H PRN fever or pain 09/09/23 05/11/25 albuterol sulfate 90 mcg/actuation 2 puff inhalation Q6H PRN 09/09/23 05/11/25 aerosol inhaler Wheezing. Cough baclofen 10 mg tablet 10 mg PO TID Muscle Spasm 09/09/23 05/11/25 cilostazol 50 mg tablet 50 mg PO BID PVD 09/09/23 05/11/25 famotidine 20 mg tablet 20 mg PO HS GERD 09/09/23 05/11/25 magnesium hydroxide 400 mg/5 mL 30 ml PO DAILY PRN 09/09/23 05/11/25 oral suspension (Milk of Magnesia) multivitamin 1 tab PO DAILY 09/09/23 05/11/25 pseudoephedrine HCl 30 mg tablet 30 mg PO Q4-6H PRN 09/09/23 05/11/25 sodium chloride 0.65 % nasal spray 2 spray intranasal Q4H PRN 09/09/23 05/11/25 aerosol (Deep Sea Nasal) aspirin 325 mg tablet 325 mg PO DAILY 09/26/23 05/11/25 polyvinyl alcohol 1.4 % eye drops 1 drp Eye-Both BID 09/26/23 05/11/25 linaclotide 290 mcg capsule 290 mcg PO QHS Constipation 08/11/24 05/11/25 (Linzess) peg [id number] 1 1 drp ophthalmic (eye) BID PRN 08/11/24 05/11/25 %-0.2 %-0.2 % eye drops (Artificial Tears ([id number])) bisacodyl 5 mg tablet,delayed 10 mg PO DAILY PRN 10/20/24 05/11/25 release cetirizine 10 mg tablet 10 mg PO DAILY 01/27/25 05/11/25 bisacodyl 10 mg rectal suppository 10 mg WI DAILY PRN 05/11/25 05/11/25 bisacodyl 5 mg tablet 10 mg PO HS 05/11/25 05/11/25 sodium phosphates 19 gram-7 118 ml WI DAILY PRN 05/11/25 05/11/25 gram/118 mL enema (Fleet Enema) Previous Rx's ?Medication ?Instructions ?Recorded levothyroxine 150 mcg tablet 150 mcg PO QAM Hypothyroidism #90 08/11/24 tabs morphine 30 mg tablet,extended 30 mg PO DAILY #30 tabs 05/25/25 release gabapentin 600 mg tablet 1,200 mg (2 x 600 mg) PO TID Pain 05/31/25 #180 tabs lorazepam 0.5 mg tablet 0.5 mg PO BID Sleep #60 tabs 05/31/25 Allergies Allergy/AdvReac Type Severity Reaction Status Date / Time No Known Allergies Allergy Verified 05/11/25 08:42 [facility] <Hakeem Escobar MD - Last Filed: 06/07/25 15:42> [facility] Disclaimer: The information contained in this section may have been updated after the patient was seen, as this information can be updated by other users. 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 Essential (primary) hypertension PAD (peripheral artery disease) Contracture of muscle, unspecified site Surgical History S/P AKA (above knee amputation) unilateral Social History Smoking Status: Current every day smoker alcohol intake: never current occupational status: other Travel in the last 8 weeks?: None housing: snf Have you lived/traveled outside US in past 30 days?: No Contact w/someone who lives/traveled outside US past 30 days?: No Exposure to someone with infectious disease in past 14 days?: No Do you have a fever (greater than 100.4 F or 38 C)?: No Have you tested positive for COVID-19?: No Exposed to someone with COVID-19 in past 14 days?: No Do you have a sore throat?: No Do you have a cough?: No Do you have any weakness?: No Do you have any diarrhea?: No Are you experiencing any unusual bleeding?: No Do you have any muscle aches/pain?: No Do you have any abdominal pain?: No Are you experiencing loss of taste or smell?: No Other Medical History Have you received the Flu Vaccine for this season: No Have you received the Pneumonia Vaccine: Yes (08/07/2019) <Hakeem Escobar MD - Last Filed: 06/07/25 15:42> ROS Obtained: Yes Systems reviewed as appropriate & no additional complaints except as documented Physical Exam <Hakeem Escobar MD - Last Filed: 06/07/25 15:42> General General appearance: alert and in no apparent distress Comment: Bilateral upper extremity contractures, kyphotic Head Head exam: atraumatic Eye Eye exam: Present normal appearance, PERRL and EOMI ENT ENT exam: Present normal external ear exam Neck Neck exam: Present full ROM Chest Chest inspection: Present symmetric chest wall rise Respiratory Respiratory exam: Present normal lung sounds bilaterally; Absent respiratory distress, wheezes or stridor Cardiovascular Cardiovascular exam: Present regular rate and normal rhythm Abdominal Exam Abdominal exam: Present soft; Absent tenderness or guarding Extremities Exam Extremities exam: Present normal inspection Back Exam Back exam: Present normal inspection Neurological Exam Neurological exam: Present other (Somnolent but will awaken with verbal stimuli and follow commands. No focal neurological deficits.) Psychiatric Psychiatric exam: Present normal affect Skin Skin exam: Present warm and dry Medical Decision Making <Hakeem Escobar MD - Last Filed: 06/07/25 15:42> Medical Records Screening: Per USPSTF and CDC recommendations, given the prevalence of disease in our region, it is our hospital?s policy to screen for HIV and viral Hepatitis for all patients aged 18 and over and those with ongoing risk factors. Marcellus Inquiry Pt receiving controlled substance: No Vital Signs: 06/07/25 14:15 06/07/25 14:28 06/07/25 14:29 Temperature 98.0 F Temperature Source Oral Pulse Rate 61 68 Pulse Rate [Left Radial] 73 Respiratory Rate 19 Blood Pressure 95/66 L 91/59 L Blood Pressure [Right Arm] 102/63 L Blood Pressure Mean 66 Blood Pressure Mean [Right Arm] 76 02 Sat by Pulse Oximetry 98 97 99 Oxygen Delivery Method Room Air 06/07/25 14:30 06/07/25 16:21 06/07/25 16:30 Temperature Temperature Source Pulse Rate 61 66 56 L Pulse Rate [Left Radial] Respiratory Rate Blood Pressure 97/61 L 91/57 L 76/43 L Blood Pressure [Right Arm] Blood Pressure Mean 74 Blood Pressure Mean [Right Arm] 02 Sat by Pulse Oximetry 100 95 97 Oxygen Delivery Method 06/07/25 17:00 06/07/25 17:31 06/07/25 17:59 Temperature Temperature Source Pulse Rate 63 66 46 L Pulse Rate [Left Radial] Respiratory Rate Blood Pressure 72/46 L 86/46 L 90/56 L Blood Pressure [Right Arm] Blood Pressure Mean Blood Pressure Mean [Right Arm] 02 Sat by Pulse Oximetry 97 97 100 Oxygen Delivery Method Lab Data Lab Results 06/07/25 14:05: Sodium 139, Potassium 4.2, Chloride 107, Carbon Dioxide 25, Anion Gap 11.2, BUN 18 H, Creatinine 0.60, Estimated Creat Clear 64, Estimated GFR 103, Est GFR ( Amer) 125, Glucose 186 H, Calcium 9.4, Total Bilirubin 0.6, AST 56 H, ALT 25, Alkaline Phosphatase 59, Total Protein 7.3, Albumin 4.3, Globulin 3.0, Albumin/Globulin Ratio 1.4 06/07/25 14:26: WBC 11.3 H, RBC 4.66, Hgb 13.2, Hct 41.5, MCV 89.1, MCH 28.3, MCHC 31.8, RDW 14.2, Plt Count 292, MPV 11.5 H, Neut % (Auto) 69.9, Lymph % (Auto) 19.3, [place] % (Auto) 9.3, Eos % (Auto) 0.9, Baso % (Auto) 0.4, Neut # (Auto) 7.9 H, Lymph # (Auto) 2.2, [place] # (Auto) 1.1 H, Eos # (Auto) 0.1, Baso # (Auto) 0.0, Lactate 1.4 06/07/25 14:29: SARS-CoV-2 (PCR) Not detected, Influenza A Untype (PCR) Not detected, Influenza Type B (PCR) Not detected 06/07/25 14:56: Urine Color Yellow, Urine Appearance Clear, Urine pH 6.0, Ur Specific [place] 1.037 H, Urine Protein 2+ A, Urine Glucose (UA) Negative, Urine Ketones Negative, Urine Blood Negative, Urine Nitrate Negative, Urine Bilirubin Negative, Urine Urobilinogen 0.2, Ur Leukocyte Esterase Negative, Urine RBC None, Urine WBC 3-5, Ur Squamous Epith Cells None, Urine Bacteria 1+, Hyaline Casts 3-5 06/07/25 15:00: Urine Opiates Screen Positive H, Urine Methadone Screen Negative, Ur Barbituates Screen Negative, Ur Phencyclidine Scrn Negative, Ur Amphetamines Screen Negative, U Benzodiazepines Scrn Negative, Urine Cocaine Screen Negative, U Marijuana (THC) Screen Positive H 06/07/25 14:26 06/07/25 14:05 Orders (Tests/Meds): ORDERS Category Date Time Status CT head/brain wo con Stat Cat Scan 06/07/25 13:54 Completed CXR --portable [XR chest portable] Stat Exams 06/07/25 13:54 Completed KUB (single view) [XR KUB] Stat Exams 06/07/25 17:39 Completed CBC w/Auto Diff [Complete Blood Count Auto Diff] Stat Lab 06/07/25 14:26 Completed CMP [Comprehensive Metabolic Panel] Stat Lab 06/07/25 14:05 Completed Lactic Acid Stat Lab 06/07/25 14:26 Completed Rapid PCR Covid and Flu A/B Stat Lab 06/07/25 14:29 Completed UA [Urinalysis and Microscopic] Stat Lab 06/07/25 14:56 Completed UDS [Drug Screen,Urine] Stat Lab 06/07/25 15:00 Completed ECG Data Tracing #1: I reviewed this ECG and interpreted as documented below: Normal sinus rhythm. No ST elevation or depression. QTc of 438 Medical Decision Narrative: Kelly Lo is a 55y female with a history of MS, chronic contractures, Prior CVA, hypertension, peripheral artery disease who presents to the emergency department from patient's snf for concern for altered mental status. Per EMS, patient was moved from [facility] nursing on Saturday of this past week. Reportedly, patient had not received any of her gabapentin, morphine, Ativan, Benadryl or other medications over the weekend and they gave her all of them at once this morning. Supposedly she was altered prior to this but allegedly became unresponsive. Per EMS, patient would respond to them throughout the transport. Patient is sleeping but will wake with verbal stimuli and follow commands. She is chronically contractured at baseline with minimal limited verbal capacity according to previous charts. She will follow commands and move her legs as well as eyes in all directions on command. On arrival, patient's heart within normal limits, maintaining appropriate oxygen saturation on room air, normotensive, in no acute distress. Physical exam, stated above, revealed thin appearing female in no respiratory distress. She is somnolent but will awaken with verbal stimuli and follow commands. Her upper extremities are contracted chronically. She will move her toes on command. She is status post left AKA. Abdomen is soft, nontender nondistended. Cardiopulmonary exams unremarkable. No focal neurological deficits. She grunts but otherwise does not verbalize any complaints. Per previous chart review, patient with limited verbalization . Differential diagnosis includes, but is not limited to: Polypharmacy, intracranial hemorrhage, intracranial mass, urinalysis, pneumonia, viral respiratory illness, electrolyte derangement, metabolic derangement, UTI, among others. The most morbid conditions were considered and workup was based on these. Workup in the emergency department included: CT head without contrast, CBC with differential, CMP, UDS, UA, rapid COVID/flu testing, lactic acid, chest x-ray, EKG EKG without evidence of ischemia. See interpretation above Laboratory studies, CT and x-ray imaging are pending at this time. Patient's care was handed off to the oncoming physician, Dr. Carmen, pending completion of her workup. Anticipate that if the patient's workup is negative here today, she would likely be appropriate for discharge back to the snf facility on that the reason for her transient altered mental status is secondary to polypharmacy given she was given multiple sedating medications all at once that she had gone several days without prior to administration of those medications. <Gloria Carmen, DO - Last Filed: 06/07/25 19:05> Vital Signs: 06/07/25 14:15 06/07/25 14:28 06/07/25 14:29 Temperature 98.0 F Temperature Source Oral Pulse Rate 61 68 Pulse Rate [Left Radial] 73 Respiratory Rate 19 Blood Pressure 95/66 L 91/59 L Blood Pressure [Right Arm] 102/63 L Blood Pressure Mean 66 Blood Pressure Mean [Right Arm] 76 02 Sat by Pulse Oximetry 98 97 99 Oxygen Delivery Method Room Air 06/07/25 14:30 06/07/25 16:21 06/07/25 16:30 Temperature Temperature Source Pulse Rate 61 66 56 L Pulse Rate [Left Radial] Respiratory Rate Blood Pressure 97/61 L 91/57 L 76/43 L Blood Pressure [Right Arm] Blood Pressure Mean 74 Blood Pressure Mean [Right Arm] 02 Sat by Pulse Oximetry 100 95 97 Oxygen Delivery Method 06/07/25 17:00 06/07/25 17:31 06/07/25 17:59 Temperature Temperature Source Pulse Rate 63 66 46 L Pulse Rate [Left Radial] Respiratory Rate Blood Pressure 72/46 L 86/46 L 90/56 L Blood Pressure [Right Arm] Blood Pressure Mean Blood Pressure Mean [Right Arm] 02 Sat by Pulse Oximetry 97 97 100 Oxygen Delivery Method Lab Data Lab Results 06/07/25 14:05: Sodium 139, Potassium 4.2, Chloride 107, Carbon Dioxide 25, Anion Gap 11.2, BUN 18 H, Creatinine 0.60, Estimated Creat Clear 64, Estimated GFR 103, Est GFR ( Amer) 125, Glucose 186 H, Calcium 9.4, Total Bilirubin 0.6, AST 56 H, ALT 25, Alkaline Phosphatase 59, Total Protein 7.3, Albumin 4.3, Globulin 3.0, Albumin/Globulin Ratio 1.4 06/07/25 14:26: WBC 11.3 H, RBC 4.66, Hgb 13.2, Hct 41.5, MCV 89.1, MCH 28.3, MCHC 31.8, RDW 14.2, Plt Count 292, MPV 11.5 H, Neut % (Auto) 69.9, Lymph % (Auto) 19.3, [place] % (Auto) 9.3, Eos % (Auto) 0.9, Baso % (Auto) 0.4, Neut # (Auto) 7.9 H, Lymph # (Auto) 2.2, [place] # (Auto) 1.1 H, Eos # (Auto) 0.1, Baso # (Auto) 0.0, Lactate 1.4 06/07/25 14:29: SARS-CoV-2 (PCR) Not detected, Influenza A Untype (PCR) Not detected, Influenza Type B (PCR) Not detected 06/07/25 14:56: Urine Color Yellow, Urine Appearance Clear, Urine pH 6.0, Ur Specific [place] 1.037 H, Urine Protein 2+ A, Urine Glucose (UA) Negative, Urine Ketones Negative, Urine Blood Negative, Urine Nitrate Negative, Urine Bilirubin Negative, Urine Urobilinogen 0.2, Ur Leukocyte Esterase Negative, Urine RBC None, Urine WBC 3-5, Ur Squamous Epith Cells None, Urine Bacteria 1+, Hyaline Casts 3-5 06/07/25 15:00: Urine Opiates Screen Positive H, Urine Methadone Screen Negative, Ur Barbituates Screen Negative, Ur Phencyclidine Scrn Negative, Ur Amphetamines Screen Negative, U Benzodiazepines Scrn Negative, Urine Cocaine Screen Negative, U Marijuana (THC) Screen Positive H Orders (Tests/Meds): ORDERS Category Date Time Status CT head/brain wo con Stat Cat Scan 06/07/25 13:54 Completed CXR --portable [XR chest portable] Stat Exams 06/07/25 13:54 Completed KUB (single view) [XR KUB] Stat Exams 06/07/25 17:39 Completed CBC w/Auto Diff [Complete Blood Count Auto Diff] Stat Lab 06/07/25 14:26 Completed CMP [Comprehensive Metabolic Panel] Stat Lab 06/07/25 14:05 Completed Lactic Acid Stat Lab 06/07/25 14:26 Completed Rapid PCR Covid and Flu A/B Stat Lab 06/07/25 14:29 Completed UA [Urinalysis and Microscopic] Stat Lab 06/07/25 14:56 Completed UDS [Drug Screen,Urine] Stat Lab 06/07/25 15:00 Completed Medical Decision Narrative: Kelly Lo is a 55y female with a history of MS, chronic contractures, Prior CVA, hypertension, peripheral artery disease who presents to the emergency department from patient's snf for concern for altered mental status. Per EMS, patient was moved from [facility] on Saturday of this past week. Reportedly, patient had not received any of her gabapentin, morphine, Ativan, Benadryl or other medications over the weekend and they gave her all of them at once this morning. Supposedly she was altered prior to this but allegedly became unresponsive. Per EMS, patient would respond to them throughout the transport. Patient is sleeping but will wake with verbal stimuli and follow commands. She is chronically contractured at baseline with minimal limited verbal capacity according to previous charts. She will follow commands and move her legs as well as eyes in all directions on command. On arrival, patient's heart within normal limits, maintaining appropriate oxygen saturation on room air, normotensive, in no acute distress. Physical exam, stated above, revealed thin appearing female in no respiratory distress. She is somnolent but will awaken with verbal stimuli and follow commands. Her upper extremities are contracted chronically. She will move her toes on command. She is status post left AKA. Abdomen is soft, nontender nondistended. Cardiopulmonary exams unremarkable. No focal neurological deficits. She grunts but otherwise does not verbalize any complaints. Per previous chart review, patient with limited verbalization . Differential diagnosis includes, but is not limited to: Polypharmacy, intracranial hemorrhage, intracranial mass, urinalysis, pneumonia, viral respiratory illness, electrolyte derangement, metabolic derangement, UTI, among others. The most morbid conditions were considered and workup was based on these. Workup in the emergency department included: CT head without contrast, CBC with differential, CMP, UDS, UA, rapid COVID/flu testing, lactic acid, chest x-ray, EKG EKG without evidence of ischemia. See interpretation above Laboratory studies, CT and x-ray imaging are pending at this time. Patient's care was handed off to the oncoming physician, Dr. Carmen, pending completion of her workup. Anticipate that if the patient's workup is negative here today, she would likely be appropriate for discharge back to the snf facility on that the reason for her transient altered mental status is secondary to polypharmacy given she was given multiple sedating medications all at once that she had gone several days without prior to administration of those medications. Gloria Carmen, DO I assumed care of the patient at 1500. CBC showed mild leukocytosis at 11. Hemoglobin was stable. CMP was unremarkable. UA showed no evidence of infection. Urine drug screen positive for opiates as well as marijuana. Respiratory panel negative. X-ray was independently reviewed and interpreted by myself and showed no acute focal consolidation, pneumothorax, pleural effusion or other acute cardiopulmonary process. CT head was reviewed and interpreted by myself and showed no acute pathology. At this time, per daughter, she is returning back to her baseline. Daughter states that she did have a marijuana gummy last night. At this time I felt the patient was appropriate and stable for discharge back to her nursing facility. Patient was discharged home in stable condition. Procedures <Hakeem Escobar MD - Last Filed: 06/07/25 15:42> Limited Ultrasound Indication:: No peripheral access Views:: US guidance for PIV Findings:: Easily compressible and patent brachial vein identified on ultrasound. Ultrasound guidance was used during the entire procedure. An 18-gauge long IV was placed within the vein and catheter was anchored with Tegaderm. Area was cleaned with alcohol wipe. IV flushed and amador blood without difficulty. Patient tolerated procedure well. Critical Care <Hakeem Escobar MD - Last Filed: 06/07/25 15:42> Critical Care Time Critical Care Time: No
--- OUTSIDE RECORDS SUMMARY | 2025-06-07 14:04 | XMS_ITS | Clinical Summary ---
[facility] Address [address] [place] [address] Care Team Providers Care Transportation Associate Name Role Phone Unavailable Primary Care Provider [...] 2) 01/26/2018 COVID-19 Vaccine (1 - season) 2025 INFLUENZA VACCINE 06/30/2025
--- OUTSIDE RECORDS SUMMARY | 2025-06-07 14:04 | XMS_ITS | Clinical Summary ---
Author Organization [facility] Address [address] [place] [address] Phone Care Team Providers Care Retail Agent Name Role Phone Unavailable Primary Care Provider [...] COVID-19 Vaccine (1 - 2023-2 5 season) 2025 Influenza Vaccine (#1) 2025 Meningococcal B Vaccine Aged Out No l onger eligible based on patient's age to complete this topic Insurance [place] [address] [place] [address] [place] [address] MEDICAID [place] [address] [place] [address] MEDICARE [place] PART A [place] B MEDICAID [id number] Member Subscriber Plan / Payer (Ef fective 2016-Present) Name:Kelly Lo Relation to Subscriber:Self Name:Kelly Lo Payer ID:Not on file Group ID:Not on file Type:Not on file Address: [address] [place] [id number]
[2025-06-07 14:33] LABS: Coronavirus 19, PCR Not Detected (NotDetected); Influenza A, PCR Not Detected (NotDetected); Influenza B, PCR Not Detected (NotDetected)
[2025-06-07 14:45] LABS: Hematocrit 41.5 % (37.0-47.0); Hemoglobin 13.2 g/dL (12.2-16.2); Immature Granulocytes % 0.2 %; Mean Corpuscular HGB Conc 31.8 g/dL (31.8-35.4); Mean Corpuscular Hemoglobin 28.3 pg (27.0-31.2); Mean Corpuscular Volume 89.1 fl (81-99); Nucleated Red Blood Cells % 0 %; Platelet Count 292 K/mm3 (142-424); Red Blood Count 4.66 M/mm3 (4.20-5.40); Red Cell Distribution Width-SD 45.5 fL; White Blood Count 11.3 K/mm3 (4.8-10.8)
[2025-06-07 14:55] LABS: Albumin Level 4.3 g/dl (3.5-5.0); Chloride 107 mmol/L (98-107); Sodium 139 mmol/L (136-145)
[2025-06-07 14:56] LABS: Potassium 4.2 mmoL/L (3.5-5.1)
[2025-06-07 14:58] LABS: Alanine Aminotransferase 25 U/L (12-78); Albumin/Globulin Ratio 1.4 (1.1-1.8); Alkaline Phosphatase 59 U/L (38-126); Anion Gap 11.2 mEq/L (5-15); Aspartate Amino Transferase 56 U/L (14-36); Bilirubin,Total 0.6 mg/dl (0.2-1.3); Blood Urea Nitrogen 18 mg/dl (7-17); Carbon Dioxide 25 mmol/L (22.0-30.0); Creatinine Clearance Estimated 64 mL/min (50-200); Creatinine,Serum 0.60 mg/dl (0.52-1.04); Estimated Glomerular Filt Rate 103 ml/min (>60); GFR (African American) 125 ML/MIN (>60); Globulin 3.0 g/dL (1.3-3.2); Total Protein,Serum 7.3 g/dl (6.3-8.2)
[2025-06-07 14:59] LABS: Calcium 9.4 mg/dl (8.4-10.2); Glucose 186 mg/dl (74-100)
[2025-06-07 15:03] LABS: Microscopic, Urine URINE MICROSCOPIC (MICROSCOPIC)
[2025-06-07 15:25] LABS: Bilirubin,Urine Negative (Negative); Color,Urine YELLOW (Yellow); Glucose,Urine (UA) Negative (Negative); Ketones,Urine Negative (Negative); Leukocyte Esterase,Urine Negative (Negative); PH,Urine 6.0 (5.0-8.5); Protein,Urine 2+ (Negative); Urobilinogen,Urine 0.2 EU/dl (0.2)
[2025-06-07 15:27] LABS: Specific Gravity, Urine 1.037 (1.005-1.030)
[2025-06-07 15:38] LABS: Amphetamine/Metha Screen,Urine Negative ng/ml (<1000)
[2025-06-07 15:39] LABS: Bacteria,Urine 1+ /lpf
[2025-06-07 15:39] LABS: Barbiturates Screen,Urine Negative ng/ml (<200); Benzodiazepines Screen,Urine Negative ng/ml (<200)
[2025-06-07 15:41] LABS: Methadone Screen,Urine Negative ng/ml (<300)
[2025-06-07 15:42] LABS: Opiate Screen,Urine Positive ng/ml (<300); Phencyclidine Screen,Urine Negative ng/ml (<25)
--- NOTE | 2025-06-07 17:39 | XR_ITS ---
PROCEDURE INFORMATION: Exam: XR Abdomen Exam date and time: 06/07/2025 5:52 PM Age: 55 years old Clinical indication: Abnormal findings; Abnormal radiologic finding of the abdomen; Radiologic exam and body structure: Chest x-ray; Additional info: Dilated bowel on cxr TECHNIQUE: Imaging protocol: Radiologic exam of the abdomen. Views: Frontal supine view of the abdomen. 1 View. COMPARISON: CT ANGIO ABDOMEN/FEMORAL 02/08/2021 8:58 AM FINDINGS: Gastrointestinal tract: Normal. No bowel dilation. Air-filled loops of large and small bowel are present although no definite ileus or obstruction is identified. Bones/joints: Unremarkable. IMPRESSION: Air-filled loops of large and small bowel are present although no definite ileus or obstruction is identified.
--- NOTE | 2025-06-07 17:40 | PC.NURSE ---
DR BARBER UPDATING DAUGHTER AT THIS TIME
--- NOTE | 2025-06-07 18:54 | PC.NURSE ---
Daughter notified of patient's discharge.
--- NOTE | 2025-06-07 18:55 | PC.NURSE ---
[facility] NOTIFIED OF TRANSFER BACK TO SNF
--- NOTE | 2025-06-07 19:02 | PC.NURSE ---
report called to zita at [facility]
== END 2025-06-07 19:49 | disposition other institution (70) ==
PROVIDERS: Student in an Organized Health Care Education/Training Program; Emergency Provider Student in an Organized Health Care Education/Training Program; PCP Internal Medicine Adolescent Medicine
DX: R41.82 Altered mental status, unspecified (principal); G35 Multiple sclerosis
CPT/HCPCS: 70450; 71045; 74018; 80053; 80307; 81001; 83605; 85025; 87636; 93005; 99285

== ENCOUNTER 2025-06-15 09:15 | Emergency (ER) | payer MEDICARE, MEDICAID, SELFPAY ==
--- NOTE | 2025-06-15 09:19 | HMH.EDGENADL ---
Discharge Plan Disposition Patient Disposition: Xfer [facility] Prescriptions Prescriptions: No Action bisacodyl 5 mg tablet,delayed release (DR/EC) 10 mg PO DAILY PRN bisacodyl 5 mg tablet 10 mg PO HS levothyroxine 150 mcg tablet 150 mcg PO QAM Qty: 90 3RF cetirizine 10 mg tablet 10 mg PO DAILY bisacodyl 10 mg suppository 10 mg WI DAILY PRN Fleet Enema 19-7 gram/118 mL enema 118 ml WI DAILY PRN acetaminophen 500 mg tablet 500 mg PO Q4H PRN (Reason: fever or pain) albuterol sulfate 90 mcg/actuation HFA aerosol inhaler 2 puff INHALATION Q6H PRN (Reason: Wheezing. Cough) baclofen 10 mg tablet 10 mg PO TID cilostazol 50 mg tablet 50 mg PO BID famotidine 20 mg tablet 20 mg PO HS multivitamin Tablet 1 tab PO DAILY Deep Sea Nasal 0.65 % aerosol,spray 2 spray intranasal Q4H PRN Rx Instructions: while awake pseudoephedrine HCl 30 mg tablet 30 mg PO Q4-6H PRN Rx Instructions: DNExceed 4 doses/24h magnesium hydroxide [Milk of Magnesia] 400 mg/5 mL suspension 30 ml PO DAILY PRN aspirin 325 mg tablet 325 mg PO DAILY polyvinyl alcohol 1.4 % drops 1 drp Eye-Both BID Artificial Tears([id number]) 1-0.2-0.2 % drops 1 drp ophthalmic (eye) BID PRN morphine 30 mg tablet extended release 30 mg PO DAILY Qty: 30 0RF gabapentin 600 mg tablet 1,200 mg PO TID Qty: 180 5RF lorazepam 0.5 mg tablet 0.5 mg PO BID Qty: 60 5RF carvedilol 3.125 mg tablet 3.125 mg PO BID citalopram 20 mg tablet 20 mg PO DAILY trazodone 100 mg tablet 100 mg PO HS Linzess 290 mcg capsule 290 mcg PO QHS Activity Restrictions/Add. Instructions Additional Instructions/Restrictions: If she develops any new or worsening symptoms, or if you become concerned for her health for any reason, return to the emergency department for evaluation Clinical Impressions Clinical Impression: Transient alteration of awareness Print Language Print Language: Italian Discharge ED Provider: Hakeem Escobar Adult [facility] General Chief complaint: Weakness Stated complaint: Unresponsive Time Seen by Provider: 06/15/25 09:16 Mode of Arrival: EMS Source of Information: Patient and EMS History of Present Illness HPI narrative: Kelly Lo is a 55-year-old female with a history of multiple sclerosis, chronic contractures, prior CVA, hypertension, peripheral artery disease who [facility] for concern for altered mental status. Per EMS, they were called out to the patient and was unresponsive. When they got there, they state that she was alert and at her baseline with no complaints. She remained stable and route. Patient has no complaints or concerns at this time. She is alert and answering questions. She denies any chest pain or shortness of breath or abdominal pain. Related Data Home Medications ?Medication ?Instructions ?Recorded ?Confirmed carvedilol 3.125 mg tablet 3.125 mg PO BID Heart 11/15/22 05/11/25 citalopram 20 mg tablet 20 mg PO DAILY Anxiety and 11/15/22 05/11/25 Depression trazodone 100 mg tablet 100 mg PO HS Sleep 11/15/22 05/11/25 acetaminophen 500 mg tablet 500 mg PO Q4H PRN fever or pain 09/09/23 05/11/25 albuterol sulfate 90 mcg/actuation 2 puff inhalation Q6H PRN 09/09/23 05/11/25 aerosol inhaler Wheezing. Cough baclofen 10 mg tablet 10 mg PO TID Muscle Spasm 09/09/23 05/11/25 cilostazol 50 mg tablet 50 mg PO BID PVD 09/09/23 05/11/25 famotidine 20 mg tablet 20 mg PO HS GERD 09/09/23 05/11/25 magnesium hydroxide 400 mg/5 mL 30 ml PO DAILY PRN 09/09/23 05/11/25 oral suspension (Milk of Magnesia) multivitamin 1 tab PO DAILY 09/09/23 05/11/25 pseudoephedrine HCl 30 mg tablet 30 mg PO Q4-6H PRN 09/09/23 05/11/25 sodium chloride 0.65 % nasal spray 2 spray intranasal Q4H PRN 09/09/23 05/11/25 aerosol (Deep Sea Nasal) aspirin 325 mg tablet 325 mg PO DAILY 09/26/23 05/11/25 polyvinyl alcohol 1.4 % eye drops 1 drp Eye-Both BID 09/26/23 05/11/25 linaclotide 290 mcg capsule 290 mcg PO QHS Constipation 08/11/24 05/11/25 (Linzess) peg [id number] 1 1 drp ophthalmic (eye) BID PRN 08/11/24 05/11/25 %-0.2 %-0.2 % eye drops (Artificial Tears ([id number])) bisacodyl 5 mg tablet,delayed 10 mg PO DAILY PRN 10/20/24 05/11/25 release cetirizine 10 mg tablet 10 mg PO DAILY 01/27/25 05/11/25 bisacodyl 10 mg rectal suppository 10 mg WI DAILY PRN 05/11/25 05/11/25 bisacodyl 5 mg tablet 10 mg PO HS 05/11/25 05/11/25 sodium phosphates 19 gram-7 118 ml WI DAILY PRN 05/11/25 05/11/25 gram/118 mL enema (Fleet Enema) Previous Rx's ?Medication ?Instructions ?Recorded levothyroxine 150 mcg tablet 150 mcg PO QAM Hypothyroidism #90 08/11/24 tabs morphine 30 mg tablet,extended 30 mg PO DAILY #30 tabs 05/25/25 release gabapentin 600 mg tablet 1,200 mg (2 x 600 mg) PO TID Pain 05/31/25 #180 tabs lorazepam 0.5 mg tablet 0.5 mg PO BID Sleep #60 tabs 05/31/25 Allergies Allergy/AdvReac Type Severity Reaction Status Date / Time No Known Allergies Allergy Verified 05/11/25 08:42 [facility] Disclaimer: The information contained in this section may have been updated after the patient was seen, as this information can be updated by other users. 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 Essential (primary) hypertension PAD (peripheral artery disease) Contracture of muscle, unspecified site Surgical History S/P AKA (above knee amputation) unilateral Social History Smoking Status: Never smoker alcohol intake: never current occupational status: other Travel in the last 8 weeks?: None housing: [facility] Have you lived/traveled outside US in past 30 days?: No Contact w/someone who lives/traveled outside US past 30 days?: No Exposure to someone with infectious disease in past 14 days?: No Do you have a fever (greater than 100.4 F or 38 C)?: No Have you tested positive for COVID-19?: No Exposed to someone with COVID-19 in past 14 days?: No Do you have a sore throat?: No Do you have a cough?: No Do you have any weakness?: No Do you have any diarrhea?: No Are you experiencing any unusual bleeding?: No Do you have any muscle aches/pain?: No Do you have any abdominal pain?: No Are you experiencing loss of taste or smell?: No Other Medical History Have you received the Flu Vaccine for this season: No Have you received the Pneumonia Vaccine: Yes (08/07/2019) ROS Obtained: Yes Systems reviewed as appropriate & no additional complaints except as documented Physical Exam General General appearance: alert and in no apparent distress Comment: Contractions of upper extremities, answering questions, keenly responsive Head Head exam: atraumatic Eye Eye exam: Present normal appearance, PERRL and EOMI ENT ENT exam: Present normal external ear exam Neck Neck exam: Present full ROM Chest Chest inspection: Present symmetric chest wall rise Respiratory Respiratory exam: Present normal lung sounds bilaterally; Absent respiratory distress Cardiovascular Cardiovascular exam: Present regular rate and normal rhythm Abdominal Exam Abdominal exam: Present soft; Absent tenderness or guarding Extremities Exam Extremities exam: Present normal inspection and other (Status post unilateral AKA) Back Exam Back exam: Present normal inspection Neurological Exam Neurological exam: Present alert and other (Answering questions appropriately, moving all extremities, following commands) Psychiatric Psychiatric exam: Present normal affect Skin Skin exam: Present warm and dry Medical Decision Making Medical Records Screening: Per USPSTF and CDC recommendations, given the prevalence of disease in our region, it is our hospital?s policy to screen for HIV and viral Hepatitis for all patients aged 18 and over and those with ongoing risk factors. Marcellus Inquiry Pt receiving controlled substance: No Vital Signs: 06/15/25 09:34 Temperature 98.1 F Temperature Source Oral Pulse Rate [Left Radial] 66 Respiratory Rate 20 Blood Pressure [Right Arm] 169/75 H Blood Pressure Mean [Right Arm] 106 02 Sat by Pulse Oximetry 97 Oxygen Delivery Method Room Air Medical Decision Narrative: Kelly Lo is a 55-year-old female with a history of multiple sclerosis, chronic contractures, prior CVA, hypertension, peripheral artery disease who [facility] for concern for altered mental status. Per EMS, they were called out to the patient and was unresponsive. When they got there, they state that she was alert and at her baseline with no complaints. She remained stable and route. Patient has no complaints or concerns at this time. She is alert and answering questions. She denies any chest pain or shortness of breath or abdominal pain. On arrival, patient is hemodynamically stable, no acute distress, alert and answering questions and following commands. She has no abdominal tenderness. Cardiopulmonary exam is unremarkable. Physical exam is grossly unremarkable. I have seen the patient in the emergency department before, and she appears to be at her baseline mental status currently. She has no complaints at this time. EMS also noted that she appeared to be at her baseline and route with them and was never altered or unresponsive for them. Patient's primary nurse spoke with nurse at her [facility] who stated that her extremities feel cool to the touch today and they could not get vital signs on her and that she would not respond to sternal rub. Patient's daughter also showed up to the emergency department shortly after arrival and stated that she agrees that she is at her baseline and does not feel that she needs to be in the emergency department at this time. Given that she is at her baseline mental status and has no complaints at this time, we will defer workup. We will discharge her back to her [facility] facility. Critical Care Critical Care Time Critical Care Time: No
[2025-06-15 09:34] VITALS: BP 169/75; PULSE 66; RESP 20; TEMP 36.7; O2SAT 97; BMI 18.7
[2025-06-15 10:01] VITALS: BP 147/93; PULSE 68; RESP 20; TEMP 36.6; O2SAT 98
--- OUTSIDE RECORDS SUMMARY | 2025-06-15 10:05 | XMS_ITS | Encounter Summary ---
Author Organization [employer] ([place], [place], [place], [place]) Address [address] [place] [address] Care Team Providers Care Primary Special Education Teacher Name Role Phone Unavailable Primary Care Provider Unavailabl e Encounter Details Date Type Department Care Team (Late st Contact Info) Description 06/02/2021 Transcribed Document [facility] [place] Medicine [facility] [place] [address] ProviderElyssa MD [address] [place] [address] Social History Tobacco Use Types [...] Insurance 1 Health Plan: MEDICARE Policy Number: [id number] Authorization Number: Insurance 2 Health Plan: MEDICAID QMB Policy Number: [id number] Authorization Number: Insurance Primary Name : MEDICARE Policy Number: [id number] Authorized Service Begin Date-Primary : 06/01/2021 EDT Historical Authorization Comments-Primary : No Authorization Comments Found FRANK BOYCE RN-Utilization Review - 06/02/2021 9:08 EDT documented in this encounter Plan of Treatment Not on file documented as of this encounter Visit Diagnoses Not on filedocumented in this encounter
--- OUTSIDE RECORDS SUMMARY | 2025-06-15 10:05 | XMS_ITS | Encounter Summary ---
Author Organization [employer] ([place], [place], [place], [place]) Address [address] [place] [address] Care Team Providers Care Chief Science Officer Name Role Phone Unavailable Primary Care Provider Unavailabl e Encounter Details Date Type Department Care Team (Late st Contact Info) Description 06/04/2021 Transcribed Document [facility] [place] [address] [place] [address] ProviderElyssa MD [address] [place] [address] Social History Tobacco Use Types [...]
--- OUTSIDE RECORDS SUMMARY | 2025-06-15 10:05 | XMS_ITS | Encounter Summary ---
Author Organization [employer] ([place], [place], [place], [place]) Address [address] [place] [address] Care Team Providers Care Assembler Piano Name Role Phone Unavailable Primary Care Provider Unavailabl e Encounter Details Date Type Department Care Team (Late st Contact Info) Description 06/03/2021 Transcribed Document [facility] [place] [facility] [place] [address] ProviderElyssa MD [facility] [place] [address] Social History Tobacco Use Types [...] 50 mcg/inh nasal spray, 100 mcg= 2 Cavalier, Nasal, At Bedtime furosemide, 40 mg= 1 [...] mg= 1 Tab, Oral, At Bedtime, PRN [place] 10 mg-325 mg oral tablet, 1 Tab, Oral, Q4H, PRN [place] 5 mg-325 mg oral tablet, 1 Tab, Oral, Q4H, PRN [place] 7.5 mg-325 mg oral tablet, 2 Tab, [...] 8.1 (L) 8.6 Electronically signed by Christoph, [facility] Conversion Insurance Sales Representative Cerner at 01/18/2023 12:45 PM CDT documented in this encounter Plan of Treatment Not on file documented as of this encounter Visit Diagnoses Not on filedocumented in this encounter
--- OUTSIDE RECORDS SUMMARY | 2025-06-15 10:05 | XMS_ITS | Encounter Summary ---
Author Organization [employer] ([place], [place], [place]) Address [address] [place] [address] Care Team Providers Care Swing Driver Name Role Phone Unavailable Primary Care Provider Unavailabl e Encounter Details Date Type Department Care Team (Late st Contact Info) Description 06/03/2021 Transcribed Document [facility] [place] [address] [place] [address] ProviderElyssa MD [address] [place] [address] Social History Tobacco Use Types [...]
--- OUTSIDE RECORDS SUMMARY | 2025-06-15 10:05 | XMS_ITS | Encounter Summary ---
Author Organization [employer] ([place], [place], [place], [place]) Address [address] [place] [address] Care Team Providers Care Settlement Technician Name Role Phone Unavailable Primary Care Provider Unavailabl e Encounter Details Date Type Department Care Team (Late st Contact Info) Description 06/03/2021 Transcribed Document [facility] [place] [address] [place] [address] ProviderElyssa MD [address] [place] [address] Social History Tobacco Use Types [...] Historical ProviderMD - 06/03/2021 2:00 AM CDT Roll Dough Divider Details Entered On: 06/03/2021 1:23 EDT Performed [...]
--- OUTSIDE RECORDS SUMMARY | 2025-06-15 10:05 | XMS_ITS | Encounter Summary ---
Author Organization [employer] ([place], [place], [place], [place]) Address [address] [place] [address] Care Team Providers Care Crm Marketing Executive Name Role Phone Unavailable Primary Care Provider Unavailabl e Encounter Details Date Type Department Care Team (Late st Contact Info) Description 06/02/2021 Transcribed Document [facility] [place] Medicine [address] [place] [address] ProviderElyssa MD [address] [place] [address] Social History Tobacco Use Types [...]
--- OUTSIDE RECORDS SUMMARY | 2025-06-15 10:06 | XMS_ITS | Clinical Summary ---
[facility] Address [address] [place] [address] Care Team Providers Care Candle Extrusion Machine Operator Name Role Phone Unavailable Primary [...]
--- OUTSIDE RECORDS SUMMARY | 2025-06-15 10:08 | XMS_ITS | Encounter Summary ---
Author Organization [employer] ([place], [place], [place], [place]) Address [address] [place] [address] Care Team Providers Care Personal Care Aid Name Role Phone Unavailable Primary Care Provider Unavailabl e Encounter Details Date Type Department Care Team (Late st Contact Info) Description 06/02/2021 Transcribed Document [facility] [place] [address] [place] [address] ProviderElyssa MD [address] [place] [address] Social History Tobacco Use Types [...] Historical ProviderMD - 06/02/2021 2:00 AM CDT Machine Setter Details Entered On: 06/02/2021 5:43 EDT Performed [...]
--- OUTSIDE RECORDS SUMMARY | 2025-06-15 10:08 | XMS_ITS | Encounter Summary ---
Author Organization [employer] ([place], [place], [place], [place]) Address [address] [place] [address] Care Team Providers Care Mogul Operator Name Role Phone Unavailable Primary Care Provider Unavailabl e Encounter Details Date Type Department Care Team (Late st Contact Info) Description 06/01/2021 Transcribed Document [facility] [place] [facility] [place] [address] ProviderElyssa MD [facility] [place] [address] Social History Tobacco Use Types [...] Legal Guardian : Care provider Support Person/Patient Mold Repairer : Yes Support Person/Pt Rep Name : Verenice Giles - [employer] - Staff 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 [facility] Want Family/Rep/Phys Notified of Admit : No Emergency Contact #1 : Jahaira Peck Emergency Contact #1 Emergency Contact #1 Relationship : Daughter Emergency Contact #2 : ` Emergency Contact #2 Phone Number : ` Emergency Contact #2 Relationship : ` Information Obtained From : Care provider Information Obtained from, Name(s) : Shellie Mobley - RN at [facility] in [place], [place] Primary Language : Burkinan Communication Barrier : Expressive aphasia Oscillograph Technician Needed : No Antony Phillip RN-TRAVELER - [...] : No Packer Secondary Diagnosis : Yes PACKER Use of Ambulatory Aid : Bed rest/Nurse assist PACKER IV Therapy or IV Access : Yes Packer Gait/Transferring : Normal, bedrest, immobile Packer Mental Status : Overestimates/Forgets limitations Packer Fall Risk Score : 50 PACKER Fall Scale Risk Level : 46 or > High Risk [place] Fall Interventions : Adequate lighting, Bed in [...] Smokeless Tobacco Status : Never Implant/Device Type, Machinist Apprentice and Model : na Antony Phillip RN-TRAVELER [...] Source : Measured Height Entry Format : [place] Height, Feet : 5 ft(Converted to: 152 cm, 60 Inch) Height, Inches : 1 Inch(Converted to: 0 ft 1 Inch, 2.54 cm) Clinical Height : 154.94 cm Weight Source : Bed scale Weight Entry Format : [place] Clinical Dosing Weight : 46.82 kg Weight, Pounds : 103 lb Body Surface Area (BSA) : 1.43 m2 Body Mass Index : 19.5 kg/m2 [place] Body Weight : 47 kg Antony Phillip RN-TRAVELER - 06/01/2021 19:25 EDT Infectious Disease History Has the patient ever been tested for COVID-19? : Yes, Patient stated results Negative Where was the COVID-19 Testing completed? : [facility] in [place], [place] Date of COVID-19 test known? : [...] Antony Phillip RN-TRAVELER - 06/01/2021 19:27 EDT [place] Suicide Severity Rating Scale (C-SSRS) CSSRS Past [...]
--- OUTSIDE RECORDS SUMMARY | 2025-06-15 10:08 | XMS_ITS | Encounter Summary ---
Author Organization [employer] ([place], [place], [place], [place]) Address [address] [place] [address] Care Team Providers Care Hand Finisher Name Role Phone Unavailable Primary Care Provider Unavailabl e Encounter Details Date Type Department Care Team (Late st Contact Info) Description 06/01/2021 Transcribed Document [facility] [place] [facility] [place] [address] ProviderElyssa MD [facility] [place] [address] Social History Tobacco Use Types [...] Elyssa ProviderMD - 06/01/2021 11:10 AM CDT [facility] Main OR Preop Summary Primary Physician: STELLA ORTIZ MD-SUR Finalized Date/Time: 06/01/21 10:45:07 Pt. Name: GILDA JACOBSO.B./Sex: 1970 Female Med Rec #: [id number] Physician: STELLA ORTIZ MD-SUR Financial #: [id number] Pt. Type: O Room/Bed: Admit/Disch: 06/01/21 06:19:00 - Institution: [facility] PreOp Case Times Entry 1 In Preop 06/01/21 06:54:00 Ready for Holding n/a Room Patient Ready for 06/01/21 10:40:00 Surgery Patient Out of Preop 06/01/21 10:45:00 Patient Out of n/a Holding Room Last Modified By: TYRON HIDALGO RN 06/01/21 10:44:54 [facility] PreOp Case Times Audit 06/01/21 10:44:54 Wallpaper Cleaner: [place] Modifier: [place] <+> 1 Patient Out of Preop <+> 1 Patient Ready for Surgery Finalized By: TYRON HIDALGO, RN Document Signatures Signed By: TYRON HIDALGO RN 06/01/21 10:45 Electronically signed by Christoph [facility] Conversion Organic Search Lead Cerner at 01/18/2023 12:43 PM CDT documented in this encounter Plan of Treatment Not on file documented as of this encounter Visit Diagnoses Not on filedocumented in this encounter
--- OUTSIDE RECORDS SUMMARY | 2025-06-15 10:08 | XMS_ITS | Encounter Summary ---
Author Organization [employer] ([place], [place], [place], [place]) Address [address] [place] [address] Care Team Providers Care Carpentry Teacher Name Role Phone Unavailable Primary Care Provider Unavailabl e Encounter Details Date Type Department Care Team (Late st Contact Info) Description 06/05/2021 Transcribed Document [facility] [place] [address] ProviderElyssa MD [place] [address] Social History Tobacco Use Types [...] Evaluation and Treatment Ordered By: SRI HAYES MD-FAM 06/05/2021 13:08 PT Additional Treatment Ordered By: Rush Vines PHYSICAL THERAPIST NON-EXEMPT Active Diagnoses : 06/01/2021 12:00 Atherosclerosis of [place] arteries of extremities with rest pain, unspecified [...] CLAU VENTURA, PT - 06/06/2021 15:52 EDT Credit Associate Goals Mobility/Bed Mobility LTG PT Grid Goal [...] the text rendition version of the form. [place] PT Charges PT Therap. Exercise 15 min : 1 CLAU VENTURA PT - 06/06/2021 15:52 EDT documented in this encounter Plan of Treatment Not on file documented as of this encounter Visit Diagnoses Not on filedocumented in this encounter
--- OUTSIDE RECORDS SUMMARY | 2025-06-15 10:08 | XMS_ITS | Referral Summary ---
Author Organization [employer] ([place], [place], [place], [place]) Address [address] [place] [address] Care Team Providers Care Reinforced Steel Placing Supervisor Name Role Phone Unavailable Primary Care [...]
--- OUTSIDE RECORDS SUMMARY | 2025-06-15 10:08 | XMS_ITS | Encounter Summary ---
Author Organization [employer] ([place], [place], [place], [place]) Address [address] [place] [address] Care Team Providers Care School Leader Name Role Phone Unavailable Primary Care Provider Unavailabl e Encounter Details Date Type Department Care Team (Late st Contact Info) Description 06/02/2021 Transcribed Document [facility] Radiology [address] [place] [address] Ezra Colunga MD [address] [facility] [place] [address] Social History Tobacco Use Types Packs/Day Years [...]
--- OUTSIDE RECORDS SUMMARY | 2025-06-15 10:08 | XMS_ITS | Encounter Summary ---
Author Organization [employer] ([place], [place], [place], [place]) Address [address] [place] [address] Care Team Providers Care Optometric Coordinator Name Role Phone Unavailable Primary Care Provider Unavailabl e Encounter Details Date Type Department Care Team (Late st Contact Info) Description 06/02/2021 Transcribed Document [facility] [place] Family Medicine Formerly [facility], [facility] [place] [address] ProviderElyssa MD [facility], [facility] [address] Social History Tobacco Use Types [...] in no acute distress. She had an engineer first assistant at bedside feeding her breakfast. She [...] 30 mg, Oral, At Bedtime, PRN: Pain Evant 10 mg-325 mg oral tablet: 1 Tab, Oral, Q4H, PRN: Pain (Moderate 4-6) Evant 5 mg-325 mg oral tablet: 1 Tab, Oral, Q4H, PRN: Pain (Mild 1-3) Evant 7.5 mg-325 mg oral tablet: 2 Tab, [...] 50 mcg/inh nasal spray: 100 mcg, 2 Cogg[place], Nasal, At Bedtime furosemide: 40 mg, Oral, [...] Refill(s) fluticasone 50 mcg/inh nasal spray: 2 Coggon, Nasal, At Bedtime, 16 Gram, 0 Refill(s) [...] list: Medical Allergic rhinitis / SNOMED CT 874527442 / Confirmed Anxiety disorder / SNOMED CT 318769781 / Confirmed At risk for sleep apnea / IMO 97038363 / Confirmed CVA (cerebral vascular accident) / SNOMED CT 617991376 / Confirmed Constipation / SNOMED CT 10351944 / Confirmed COVID-19 / SNOMED CT 5161363468 / Confirmed Hormone deficiency / SNOMED CT 654888107 / Confirmed Depression / SNOMED CT 13980149 / Confirmed Graves disease / SNOMED CT 576774913 / Confirmed Hemiplegia / SNOMED CT 43260307 / Confirmed HLD (hyperlipidemia) / SNOMED CT 64377196 / Confirmed HTN (hypertension) / SNOMED CT 9953670139 / Confirmed Hyperthyroidism / SNOMED CT 73517906 / Confirmed Insomnia / SNOMED CT 226088909 / Confirmed Migraine / SNOMED CT 75395605 / Confirmed Torres torres disease / SNOMED CT 608121717 / Confirmed Multiple sclerosis / SNOMED CT 83734674 / Confirmed Contracture of muscle, unspecified site / SNOMED CT 06898280 / Confirmed Muscle weakness (generalized) / SNOMED CT 27677457 / Confirmed Dysphagia, oropharyngeal phase / SNOMED CT 969879871 / Confirmed Overactive bladder / SNOMED CT 9992925471 / Confirmed Peripheral venous insufficiency / SNOMED CT 78775559 / Confirmed Thyrotoxicosis / SNOMED CT 902150887 / Confirmed, Active Problems (23) Allergic rhinitis [...]
--- OUTSIDE RECORDS SUMMARY | 2025-06-15 10:08 | XMS_ITS | Encounter Summary ---
Author Organization [employer] ([place], [place], [place], [place]) Address [address] [place] [address] Care Team Providers Care Forming Process Line Worker Name Role Phone Unavailable Primary Care Provider Unavailabl e Encounter Details Date Type Department Care Team (Late st Contact Info) Description 06/07/2021 Transcribed Document [facility] [place] [facility] [place] [address] ProviderElyssa MD [facility] [place] [address] Social History Tobacco Use Types [...] from hospital Discharged to, Therapy : Unit, [facility] Discharge Summary Comment, PT : pt last [...] MICHELINE GONSALEZ, PT - 06/07/2021 16:45 EDT Harness Preparer Goals Mobility/Bed Mobility LTG PT Grid Goal [...] MICHELINE GONSALEZ, PT - 06/07/2021 16:45 EDT Electronically signed by Rl Hawthorne Conversion Agricultural Services Director Cerner at 01/18/2023 12:50 PM CDT documented in this encounter Plan of Treatment Not on file documented as of this encounter Visit Diagnoses Not on filedocumented in this encounter
--- OUTSIDE RECORDS SUMMARY | 2025-06-15 10:08 | XMS_ITS | Clinical Summary ---
Author Organization [employer] ([place], [place], [place], [place]) Address [address] [place] [address] Care Team Providers Care Development Analyst Name Role Phone Unavailable Primary Care [...]
--- OUTSIDE RECORDS SUMMARY | 2025-06-15 10:08 | XMS_ITS | Encounter Summary ---
Author Organization [employer] ([place], [place], [place], [place]) Address [address] [place] [address] Care Team Providers Care Core Driller Helper Name Role Phone Unavailable Primary Care Provider Unavailabl e Encounter Details Date Type Department Care Team (Late st Contact Info) Description 05/31/2021 Transcribed Document [facility] [place] Family Medicine [facility] [place] [address] ProviderElyssa MD [facility] [place] [address] Social History Tobacco Use Types [...] Ministry Provided to : Patient, Other: Caregiver Christianity Preference : Hoahaoism ([employer]) ABBY BENJAMIN P - 06/01/2021 8:17 EDT Spiritual Assessment Spiritual Assessment Comment/Summary Points : Provided pre-surgery prayer. Caregiver present. Spirital Assessment Comment/Summary Report : SPIRITUAL ASSESSMENT COMMENT/SUMMARY No qualifying data available. ABBY BENJAMIN P - 06/01/2021 8:17 EDT Interventions Spiritual and Christianity : Prayer shared, Spiritual/Christianity support provided ABBY BENJAMIN - 06/01/2021 8:17 EDT documented in this encounter Plan of Treatment Not on file documented as of this encounter Visit Diagnoses Not on filedocumented in this encounter
--- OUTSIDE RECORDS SUMMARY | 2025-06-15 10:08 | XMS_ITS | Encounter Summary ---
Author Organization [employer] ([place], [place], [place], [place]) Address [address] [place] [address] Care Team Providers Care Jelly Maker Name Role Phone Unavailable Primary Care Provider Unavailabl e Encounter Details Date Type Department Care Team (Late st Contact Info) Description 05/31/2021 Transcribed Document [facility] [place] Family Medicine [facility]ly [facility], [facility] [place] [address] ProviderElyssa MD [address] [place] [address] Social History Tobacco Use Types [...] Source : Measured Height Entry Format : [place] Height, Feet : 5 ft(Converted to: 152 cm, 60 Inch) Height, Inches : 1 Inch(Converted to: 0 ft 1 Inch, 2.54 cm) Clinical Height : 154.94 cm Weight Source : Bed scale Weight Entry Format : [place]ali Clinical Dosing Weight : 46.82 kg Weight, Pounds : 103 lb Body Surface Area (BSA) : 1.43 m2 Body Mass Index : 19.5 kg/m2 [place] Body Weight : 47 kg CHIP MASSEY RN - 06/01/2021 9:02 EDT Health Histories Smoking Status : Former smoker, quit more than 30 days ago Smokeless Tobacco Status : Never Implant/Device Type, Application Designer and Model : na Eric Steiner Rn [...] Where was the COVID-19 Testing completed? : [facility] in [place], [place] Date of COVID-19 test known? : [...] : Yes Spiritual/Cultural Needs Comment : 06/01 Mandaeism Preference : Congregation ([employer] of [employer]) Spiritual/Cultural Needs Comment : 06/01 Eric Steiner Rn - 05/31/2021 14:37 EDT [place] Suicide Severity Rating Scale (C-SSRS) CSSRS Past [...] Legal Guardian : Care provider Support Person/Patient Ripening Room Operator : Yes Support Person/Pt Rep Name : Verenice Giles - Director Banking - Staff member at [facility] Emergency Contact #1 : ` Emergency Contact #1 Phone Number : ` Emergency Contact #1 Relationship : ` Emergency Contact #2 : ` Emergency Contact #2 Phone Number : ` Emergency Contact #2 Relationship : ` Information Obtained From : Care provider Information Obtained from, Name(s) : Shellie Mobley - RN at [facility] in [place], [place] Primary Language : Lao Communication Barrier : Expressive aphasia Peeler Operator Needed : No Eric Steiner Rn - [...]
--- OUTSIDE RECORDS SUMMARY | 2025-06-15 10:08 | XMS_ITS | Encounter Summary ---
Author Organization [employer] ([place], [place], [place], [place]) Address [address] [place] [address] Care Team Providers Care Media Relations Coordinator Name Role Phone Unavailable Primary Care Provider Unavailabl e Encounter Details Date Type Department Care Team (Late st Contact Info) Description 06/14/2021 Transcribed Document [facility] Radiology [address] [place] [address] Ezra Colunga MD [address] [facility] [place] [id number] Social History Tobacco Use Types Packs/Day Years [...] Location in Medical Record [ X ] Afaae-skw-hjva amputation Documented in operative report on 06/01/[address] Ezra Colunga [ X ] Vascular Surgery consult Documented in operative report on 06/01/[address] Ezra Colunga CDS/Centrifugal Drier Operator Signature: ScottyadenRobinson Phone #: Date/Time: 06/14/2021 / 14:40 This is a permanent part of the Medical Record Q45 2020 [facility] Reviewed: 12/2020 documented in this encounter Plan of Treatment Not on file documented as of this encounter Visit Diagnoses Not on filedocumented in this encounter
--- OUTSIDE RECORDS SUMMARY | 2025-06-15 10:08 | XMS_ITS | Encounter Summary ---
Author Organization [employer] ([place], [place], [place], [place]) Address [address] [place] [address] Care Team Providers Care Concrete Wall Grinder Operator Name Role Phone Unavailable Primary Care Provider Unavailabl e Encounter Details Date Type Department Care Team (Late st Contact Info) Description 06/02/2021 Transcribed Document [facility] [place] [address] [place] [address] ProviderElyssa MD [address] [place] [address] Social History Tobacco Use Types [...] EDT Performed On: 06/02/2021 5:00 EDT by Siria Rubin NON EMP RN - INTERNATIONAL Chart Check Powerplans Initiated/Discontinued as Appropriate : Yes All Active Orders Reviewed : Yes Siria Rubin NON EMP RN - INTERNATIONAL - 06/02/2021 5:43 EDT documented in this encounter Plan of Treatment Not on file documented as of this encounter Visit Diagnoses Not on filedocumented in this encounter
--- OUTSIDE RECORDS SUMMARY | 2025-06-15 10:08 | XMS_ITS | Encounter Summary ---
Author Organization [employer] ([place], [place], [place], [place]) Address [address] [place] [address] Care Team Providers Care Press Tender Long Goods Name Role Phone Unavailable Primary Care Provider Unavailabl e Encounter Details Date Type Department Care Team (Late st Contact Info) Description 06/01/2021 Transcribed Document [facility] Radiology [address] [place] [address] Ezra Colunga MD [address] [place] [address] Social History Tobacco Use Types Packs/Day Years [...] severe pain. She has been offered an lrtxi-oej-rsop amputation as she is nonambulatory. *Preoperative Diagnosis [...] with identification of the patient and procedure. Wjaiu-avh-iawa a fishmouth incision was created. The anterior compartment was divided with electrocautery. The neurovascular bundle was clamped ligated and divided. The femur was divided sharply with the use of a Auto Secure oscillating saw. The posterior flap was next [...] knee contracture. Successful amputation of the right bfpef-qwd-nxng *Specimen(s) Right leg Complications None Date of Service Date/Time of Service SN - Proc - Start Time: 06/01/21 11:22:00 (06/01/21 11:35:38) documented in this encounter Plan of Treatment Not on file documented as of this encounter Visit Diagnoses Not on filedocumented in this encounter
--- OUTSIDE RECORDS SUMMARY | 2025-06-15 10:08 | XMS_ITS | Encounter Summary ---
Author Organization [employer] ([place], [place], [place], [place]) Address [address] [place] [address] Care Team Providers Care Dirt Contractor Name Role Phone Unavailable Primary Care Provider Unavailabl e Encounter Details Date Type Department Care Team (Late st Contact Info) Description 06/06/[address] [facility] Radiology [address] [place] [address] Ezra Colunga MD [address] [facility] [place] [address] Social History Tobacco Use Types Packs/Day Years [...] kerlix and yadira. Order for nursing to [facility] QOD. - pain controlled, currently not requiring [...]
--- OUTSIDE RECORDS SUMMARY | 2025-06-15 10:09 | XMS_ITS | Encounter Summary ---
Author Organization [employer] ([place], [place], [place], [place]) Address [address] [place] [address] Care Team Providers Care Oracle Pl Sql Developer Name Role Phone Unavailable Primary Care Provider Unavailabl e Encounter Details Date Type Department Care Team (Late st Contact Info) Description 06/06/2021 Transcribed Document [facility] [place] Family Medicine [facility] [place] [address] ProviderElyssa MD [address] [place] [address] Social History Tobacco Use Types [...] above diagnoses and comorbidities. We appreciate vascular applications development consultant and we will continue with routine objective evaluations to assess her progress. Expected discharge pending at this time. Anticipated discharged back to her [place] facility tomorrow after her dressing change. We appreciate case data management analyst assisting with routine evaluations to transition her [...] 50 mcg/inh nasal spray, 100 mcg= 2 [place], Nasal, At Bedtime furosemide, 40 mg= 1 [...] mg= 1 Tab, Oral, At Bedtime, PRN [place] 10 mg-325 mg oral tablet, 1 Tab, Oral, Q4H, PRN [place] 5 mg-325 mg oral tablet, 1 Tab, Oral, Q4H, PRN [place] 7.5 mg-325 mg oral tablet, 2 Tab, [...] mg= 2 mL, IV Push, Q6H, PRN Electronically signed by Rl Hawthorne Conversion Building Construction Supervisor Cerner at 01/18/2023 12:38 PM CDT documented in this encounter Plan of Treatment Not on file documented as of this encounter Visit Diagnoses Not on filedocumented in this encounter
--- OUTSIDE RECORDS SUMMARY | 2025-06-15 10:09 | XMS_ITS | Encounter Summary ---
Author Organization [employer] ([place], [place], [place], [place]) Address [address] [place] [address] Care Team Providers Care Healthcare Account Manager Name Role Phone Unavailable Primary Care Provider Nanette glass Encounter Details Date Type Department Care Team (Late st Contact Info) Description 06/05/2021 Transcribed Document [facility] [place] Family Medicine [facility] [place] [address] ProviderElyssa [place] [facility] [address] Social History Tobacco Use Types [...] Historical ProviderMD - 06/05/2021 2:00 AM CDT Corrosion Prevention Metal Sprayer Details Entered On: 06/05/2021 0:35 EDT Performed [...] Zaynab Morataya RN - 06/05/2021 0:34 EDT documented in this encounter Plan of Treatment Not on file documented as of this encounter Visit Diagnoses Not on filedocumented in this encounter
--- OUTSIDE RECORDS SUMMARY | 2025-06-15 10:09 | XMS_ITS | Encounter Summary ---
Author Organization [employer] ([place], [place], [place], [place]) Address [address] [place] [address] Care Team Providers Care Systems Development Manager Name Role Phone Unavailable Primary Care Provider Unavailabl e Encounter Details Date Type Department Care Team (Late st Contact Info) Description 06/07/2021 Transcribed Document [facility] [place] [facility] [place] [address] ProviderElyssa MD [facility] [place] [address] Social History Tobacco Use Types [...] female that normally resides in a local senior care and is non-ambulatory. Her past medical history [...] assisted with discharge plans back to her senior care facility. Vital Signs T: 36.7 ??C TMIN: [...] Cooperative, appropriate mood and affect. Discharge Disposition Alf Facility Discharge Follow Up STELL[facility] ORTIZ - [...] Daily fluticasone 50 mcg/inh nasal spray 2 [place], Nasal, At Bedtime furosemide 40 mg oral [...] I spent greater than 30 minutes in rpfd-jr-ooyx time with the patient concerning the discharge [...]
--- OUTSIDE RECORDS SUMMARY | 2025-06-15 10:09 | XMS_ITS | Encounter Summary ---
Author Organization [employer] ([place], [place], [place], [place]) Address [address] [place] [address] Care Team Providers Care Channel Executive Name Role Phone Unavailable Primary Care Provider Unavailabl e Encounter Details Date Type Department Care Team (Late st Contact Info) Description 06/04/2021 Transcribed Document [facility] [place] Family Medicine [address] [place] [address] ProviderElyssa MD [address] [place] [address] Social History Tobacco Use Types [...] Historical ProviderMD - 06/04/2021 2:00 AM CDT Freelance Interpreter/Translator Details Entered On: 06/04/2021 0:36 EDT Performed [...]
--- OUTSIDE RECORDS SUMMARY | 2025-06-15 10:09 | XMS_ITS | Encounter Summary ---
Author Organization [employer] ([place], [place], [place], [place]) Address [address] [place] [address] Care Team Providers Care Printing Roller Polisher Name Role Phone Unavailable Primary Care Provider Unavailabl e Encounter Details Date Type Department Care Team (Late st Contact Info) Description 06/06/[address] [facility] [place] [facility] [place] [address] ProviderElyssa MD [address] [place] [address] Social History Tobacco Use Types [...] 13:21 EDT by MEENU DUNNE RN - Preassembler And Inspector Initial Assessment I Previously Documented Living Environment : No qualifying data available. Living Situation : Other: [facility] Patient Lives With : Caregiver(s) Emergency Contact #1 : Jahaira Peck Emergency Contact #1 Emergency Contact #1 Relationship : Daughter Emergency Contact #2 : ` Emergency Contact #2 Phone Number : ` Emergency Contact #2 Relationship : ` Does Patient have PCP Listed? : No Legal Guardian : No MEENU DUNNE RN - Preassembler And Inspector - 06/06/2021 13:21 EDT Initial Assessment II Sensory and Motor Deficits : Other: severe contractures, wheelchair bound Current Home Treatments and Equipment : Wheelchair MEENU DUNNE RN - Preassembler And Inspector - 06/06/2021 13:21 EDT Discharge Needs I Anticipated Discharge Date : 06/07/2021 EDT Anticipated Discharge To, CM : Other: [facility] Current Home Treatment/Equipment : Current Home Treatment/Equipment No qualifying data available. Post Acute/Home Treatments : Wound care Documentation Status Complete : Yes MEENU DUNNE RN - Preassembler And Inspector - 06/06/2021 13:21 EDT Discharge Needs II Professional Skilled Services : Professional Skilled Services No qualifying data available. Needs Assistance with Transportation : Yes Patient Discharge Goal : long-term facility MEENU DUNNE RN - Preassembler And Inspector - 06/06/2021 13:21 EDT Narrative Note Narrative Note : RRS Low Boost 3 Day 02/03 CM spoke with the patient and her daughter to explain the role of CM for discharge planning. Patient was admitted for a right AKA. She lives at [facility] and is wheelchair bound. She has her own wheelchair and CM found out it had been left in pre-op. CM has arranged for a wheelchair caliber for tomorrow at 3pm. Covid test has been ordered. Hospitalist notified. DCP: snf MEENU DUNNE RN - Preassembler And Inspector - 06/06/2021 13:21 EDT documented in this encounter Plan of Treatment Not on file documented as of this encounter Visit Diagnoses Not on filedocumented in this encounter
--- OUTSIDE RECORDS SUMMARY | 2025-06-15 10:09 | XMS_ITS | Encounter Summary ---
Author Organization [employer] ([place], [place], [place], [place]) Address [address] [place] [address] Care Team Providers Care Yard Warehouse Worker Name Role Phone Unavailable Primary Care Provider Unavailabl e Encounter Details Date Type Department Care Team (Late st Contact Info) Description 06/04/2021 Transcribed Document [facility] [place] Family Medicine [address] [place] [address] ProviderElyssa MD [address] [place] [address] Social History Tobacco Use Types [...]
--- OUTSIDE RECORDS SUMMARY | 2025-06-15 10:09 | XMS_ITS | Clinical Summary ---
Author Organization [facility] Address [address] [place] [address] Phone Care Team Providers Care Children'S Attendant Name Role Phone Unavailable Primary Care Provider [...] patient's age to complete this topic Insurance [place] [address] [place] [address] [place] [address] MEDICAID [place] [address] [place] [address] MEDICARE [place] PART A AND B MED[place]ID [place] Member Subscriber Plan / Payer (Ef fective 2016-Present) Name:Kelly Lo Relation to Subscriber:Self Name:Kelly Lo Payer ID:Not on file Group ID:Not on file Type:Not on file Address: [address] [place] [id number]
--- OUTSIDE RECORDS SUMMARY | 2025-06-15 10:09 | XMS_ITS | Encounter Summary ---
Author Organization [employer] ([place], [place], [place], [place]) Address [address] [place] [address] Care Team Providers Care Fuel Storage Technician Name Role Phone Unavailable Primary Care Provider Unavailabl e Encounter Details Date Type Department Care Team (Late st Contact Info) Description 06/07/2021 Transcribed Document [facility] [place] Family Medicine [facility] [place] [address] ProviderElyssa MD [facility] [place] [address] Social History Tobacco Use [...] 13:49 EDT by MEENU DUNNE RN - Credit Card Interviewer Final Discharge Planning Discharge Arrangements : Patient [...] with Medicare Certification-03 MEENU DUNNE, RN - Credit Card Interviewer - 06/07/2021 13:49 EDT Final Narrative Note Final Narrative Note : CM spoke with the patient's daughter Krista Peck about her discharge back to [facility] where she resides. MEENU DUNNE RN - Credit Card Interviewer - 06/07/2021 13:49 EDT documented in this encounter Plan of Treatment Not on file documented as of this encounter Visit Diagnoses Not on filedocumented in this encounter
--- OUTSIDE RECORDS SUMMARY | 2025-06-15 10:09 | XMS_ITS | Encounter Summary ---
Author Organization [employer] ([place], [place], [place], [place]) Address [address] [place] [address] Care Team Providers Care Crew Manager Name Role Phone Unavailable Primary Care Provider Unavailabl e Encounter Details Date Type Department Care Team (Late st Contact Info) Description 06/05/2021 Transcribed Document [facility] [place] Family Medicine [facility] [place] [address] ProviderElyssa MD [address] [place] [address] Social History Tobacco Use Types [...] above diagnoses and comorbidities. We appreciate vascular gift consultant and we will continue with routine objective evaluations to assess her progress. Expected discharge pending at this time. Anticipated discharged back to her [place] facility tomorrow after her dressing change. We appreciate case case management coordinator assisting with routine evaluations to [...] 50 mcg/inh nasal spray, 100 mcg= 2 [place], Nasal, At Bedtime furosemide, 40 mg= 1 [...] mg= 1 Tab, Oral, At Bedtime, PRN [place] 10 mg-325 mg oral tablet, 1 Tab, Oral, Q4H, PRN [place] 5 mg-325 mg oral tablet, 1 Tab, Oral, Q4H, PRN [place] 7.5 mg-325 mg oral tablet, 2 Tab, [...]
--- OUTSIDE RECORDS SUMMARY | 2025-06-15 10:09 | XMS_ITS | Encounter Summary ---
Author Organization [employer] ([place], [place], [place], [place]) Address [address] [place] [address] Care Team Providers Care Supervisor Metal Furniture Assembly Name Role Phone Unavailable Primary Care Provider Unavailabl e Encounter Details Date Type Department Care Team (Late st Contact Info) Description 06/01/2021 Transcribed Document [facility] [place] [facility] [place] [address] ProviderElyssa MD [facility] [place] [address] Social History Tobacco Use Types [...] Elyssa ProviderMD - 06/01/2021 11:22 AM CDT [facility] Main OR IntraOp Summary Primary Physician: STELLA ORTIZ MD-SUR Finalized Date/Time: 06/03/21 16:15:48 Pt. Name: KELLY JACOBS Annelise EppersonB./Sex: 1970 Female Med Rec #: [id number] Physician: STELLA ORTIZ MD-SUR Financial #: [id number] Pt. Type: I Room/Bed: [facility]/ Admit/Disch: 06/01/21 16:38:00 - Institution: [facility] IntraOp Case Attendance Entry 1 Entry 2 Entry 3 Case Attendee STELLA ORTIZ MD-SUR BARRETT, LAURIE, MD-DANIELLA GHOSH, HUMAN SERVICES PROFESSIONAL, LITHOGRAPH DESIGNER Role Performed Surgeon/Proceduralist, Anesthesiologist of LITHOGRAPH DESIGNER/Nurse Net Application Support Specialist First Record Time In 06/01/21 10:46:00 06/01/21 10:46:00 06/01/21 10:46:00 Time Out 06/01/21 11:53:00 06/01/21 11:53:00 06/01/21 11:53:00 Procedure Leg Amputation Above Leg Amputation Above Leg Amputation Above Knee Knee Knee Other Attendee MOBILE PRACTICE LEAD Superficial Wound Closed By: Last Modified By: FLOYD BANDA RN RESULTAY, JOSEFINA, RN RESULTAY, JOSEFINA, RN 06/01/21 11:54:38 06/01/21 11:30:14 06/01/21 11:54:38 Entry 4 Entry 5 Entry 6 Case Attendee OTHER, ATTENDEE #1 Yamileth Osuna RN RESULTAY, JOSEFINA, PARESH Role Performed Student Supervisor Functional Testing, First Supervisor Functional Testing, Second Time In 06/01/21 10:46:00 06/01/21 10:46:00 [...] Case Attendee SHANTHI SOLANO ST Sparks, Brett, PERFORATING MACHINE OPERATOR SANCHEZ, TRACIE, PA Role Performed Scrub, First Scrub, Second Cultural Historian, First Time In 06/01/21 10:46:00 06/01/21 10:46:00 06/01/21 10:46:00 Time Out 06/01/21 11:15:00 06/01/21 11:53:00 06/01/21 11:53:00 Procedure Leg Amputation Above Leg Amputation Above Leg Amputation Above Knee Knee Knee Other Attendee YOAN WEBER Superficial Wound Closed By: Last Modified By: FLOYD BANDA RN RESULTAY, JOSEFINA, RN FLOYD BANDA RN 06/01/21 11:31:53 06/01/21 10:56:24 06/01/21 11:54:38 Entry 10 Case Attendee Callum Boo, Lumber Chain Offbearer Role Performed Scrub, First Time In 06/01/21 11:15:00 Time Out 06/01/21 11:53:00 Procedure Leg Amputation Above Knee Other Attendee BREAK Superficial Wound Closed By: Last Modified By: FLOYD BANDA RN 06/01/21 11:30:14 [facility] IntraOp Case Attendance Audit 06/01/21 11:54:38 Population Health Coach: RESULTJO Modifier: RESULTJO 1 <+> Time Out [...] Procedure Leg Amputation Above Knee 06/01/21 11:31:53 Population Health Coach: RESULTJO Modifier: RESULTJO 7 <+> Time Out 7 <*> Procedure Leg Amputation Above Knee 06/01/21 11:30:14 Population Health Coach: RESULTJO Modifier: RESULTJO 1 <*> Procedure Leg [...] Procedure <+> 10 Other Attendee 06/01/21 11:01:28 Population Health Coach: RESULTJO Modifier: RESULTJO <+> 9 Case Attendee <+> 9 Role Performed <+> 9 Procedure 06/01/21 10:59:52 Population Health Coach: RESULTJO Modifier: RESULTJO <+> 1 Procedure 2 <*> Procedure Leg Amputation Above Knee 3 <*> Procedure Leg Amputation Above Knee 4 <*> Procedure Leg Amputation Above Knee 5 <*> Procedure Leg Amputation Above Knee 6 <*> Procedure Leg Amputation Above Knee 7 <*> Procedure Leg Amputation Above Knee 8 <*> Procedure Leg Amputation Above Knee 06/01/21 10:58:51 Population Health Coach: RESULTJO Modifier: RESULTJO 2 <*> Procedure Leg Amputation Above Knee 3 <*> Procedure Leg Amputation Above Knee 4 <*> Procedure Leg Amputation Above Knee 5 <*> Procedure Leg Amputation Above Knee 6 <*> Procedure Leg Amputation Above Knee 7 <+> Time In 7 <*> Procedure Leg Amputation Above Knee 8 <+> Time In 8 <*> Procedure Leg Amputation Above Knee 06/01/21 10:56:24 Population Health Coach: RESULTJO Modifier: RESULTJO 2 <+> Time In [...] <+> 8 Procedure <+> 8 Other Attendee [facility] IntraOp Case Times Entry 1 Patient In Room Time 06/01/21 10:46:00 Out Room Time 06/01/21 11:53:00 Anesthesia Start Time 06/01/21 10:46:00 Stop Time 06/01/21 11:53:00 Surgery / Procedure Times Start Time 06/01/21 11:22:00 Stop Time 06/01/21 11:44:00 Last Modified By: FLOYD BANDA RN 06/01/21 11:44:21 [facility] IntraOp Case Times Audit 06/01/21 11:53:03 Population Health Coach: RESULTJO Modifier: RESULTJO <+> 1 Out Room Time <+> 1 Stop Time 06/01/21 11:44:21 Population Health Coach: RESULTJO Modifier: RESULTJO <+> 1 Stop Time 06/01/21 11:27:39 Population Health Coach: RESULTJO Modifier: RESULTJO <+> 1 Start Time [facility] IntraOp Cautery Entry 1 ESU Identification Cautery Type Monopolar ESU ID Number [id number] ID Type Hospital Number Cautery Settings Cut Setting 35 Coag Setting 35 ESU Grounding Pad Ground Pad Type Reusable electrode pad Grounding Pad Site Posterior Grounding Pad FLOYD BANDA RN Applied By Grounding Pad Site Warm, dry and intact Skin Condition Before Cautery Grounding Pad Site Unchanged Skin Condition After Cautery Last Modified By: FLOYD BANDA RN 06/01/21 10:55:37 [facility] IntraOp Cautery Audit 06/01/21 11:30:40 Population Health Coach: RESULTJO Modifier: RESULTJO 1 <*> Grounding Pad Site Right Buttock [facility] IntraOp Communication Entry 1 Entry 2 Communication To Family/Significant other Family/Significant other Comment START NO ANSWER Communication By FLOYD BANDA RN RESULTAY, JOSEFINA, RN Date and Time 06/01/21 11:22:00 06/01/21 11:43:00 Last Modified By: FLOYD BANDA RN RESULTAY, JOSEFINA, RN 06/01/21 11:28:06 06/01/21 11:43:14 [facility] IntraOp Communication Audit 06/01/21 11:43:14 Population Health Coach: RESULTJO Modifier: RESULTJO <+> 2 Communication By <+> 2 Date and Time <+> 2 Communication To <+> 2 Comment [facility] IntraOp Counts Verification Entry 1 Procedure Leg Amputation Above Knee Count Info Count Type Sponge, Sharps, Miscellaneous Counts Verification Baseline/pre-procedure Sequence Count Results Not Applicable Counts Performed By Count Performed By SHANTHI SOLANO ST (Scrub) Count Performed By FLOYD BANDA RN (RN) Last Modified By: FLOYD BANDA RN 06/01/21 11:43:49 [facility] IntraOp Counts Verification Audit 06/01/21 11:43:49 Population Health Coach: RESULTJO Modifier: RESULTJO 1 <*> Procedure Leg [...] Verification Sequence Before wound closure 06/01/21 10:59:31 Population Health Coach: RESULTJO Modifier: RESULTJO <+> 2 Procedure <+> 2 Count Type <+> 2 Counts Verification Sequence [facility] IntraOp Counts Final Entry 1 Procedure Leg Amputation Above Knee Final Count Info Count Type Sponge, Sharps, Miscellaneous Counts Verification Skin Closure/end of Sequence procedure Count Results Correct, surgeon notified Counts Performed By Count Performed By Callum Boo, Surgical (Scrub) Engineering Analyst Count Performed By FLOYD BANDA RN (RN) Last Modified By: FLOYD BANDA RN 06/01/21 10:59:15 [facility] IntraOp Counts Final Audit 06/01/21 11:43:42 Population Health Coach: RESULTJO Modifier: RESULTJO 1 <*> Procedure Leg Amputation Above Knee 1 <+> Count Results 1 <+> Count Performed By (Scrub) 1 <+> Count Performed By (RN) [facility] IntraOp Cultures and Spec Summary Entry 1 Cultrures and Specimens Specimen Ordered: Yes Test(s) Routine/Path-Lab Requested/Final Disposition Last Modified By: FLOYD BANDA RN 06/01/21 10:56:49 General Comments: 1. RIGHT AKA [facility] IntraOp Departure from OR Entry 1 Integumentary Assessment Transfer/Handoff Transfer to PACU Phase I Handoff Method Bedside/Face to face, Phone call, Online nursing summary Post-op Transport Stretcher/Gurney Via Patient Transport DANIELLA GOMEZ APRN, Accompanied by LAURA JORDAN KRISTI, PA Last Modified By: FLOYD BANDA RN 06/01/21 11:31:03 [facility] IntraOp Departure from OR Audit 06/01/21 11:44:35 Population Health Coach: RESULTJO Modifier: RESULTJO <+> 1 Patient Transport Accompanied by 06/01/21 11:31:03 Population Health Coach: RESULTJO Modifier: RESULTJO <+> 1 Handoff Method [facility] IntraOp Dressing and Packing Entry 1 Type Dressing Location RIGHT LEG Wound Dressing Item Xeroform, 4x4's, Kerlix/Senia, Won Applied By STELLA ORTIZ MD-ANNALISE Last Modified By: FLOYD BANDA RN 06/01/21 11:44:17 [facility] IntraOp Fire Risk Assessment Entry 1 Fire [...] Modified By: FLOYD BANDA RN 06/01/21 10:57:02 [facility] IntraOp General Case Director Of Strategic Marketing 1 Case Information OR OR 02 [facility] Case Level 1 Room Verified Yes Wound Class III - Contaminated Specialty General Anesthesia Type MAC ASA Class 4 Diagnosis Preop Diagnosis NON HEALING RIGHT FOOT ULCER Postop Same As Preop No Postop Diagnosis SEE MD NOTE Last Modified By: FLOYD BANDA RN 06/01/21 10:57:18 [facility] IntraOp General Case Data Audit 06/01/21 11:32:12 Population Health Coach: RESULTJO Modifier: RESULTJO <+> 1 Preop Diagnosis 06/01/21 11:31:20 Population Health Coach: RESULTJO Modifier: RESULTJO 1 <*> OR OR 07 [facility] 1 <*> Specialty [facility] IntraOp Intraoperative Assessment Entry 1 Handoff Method Online nursing summary Valid History / Yes Physical in Chart Preoperative Yes Checklist Reviewed/Evaluated Allergies Reviewed Yes Patient is Latex No Sensitive Isolation Not applicable Precautions Noted Skin Assessment No Verified Present Upon IVs, Oxygen Arrival to OR Last Modified By: FLOYD BANDA RN 06/01/21 11:32:34 [facility] IntraOp Intraoperative Assessment Audit 06/01/21 11:32:34 Population Health Coach: RESULTJO Modifier: RESULTJO 1 <*> Handoff Method Bedside/Face to face [facility] IntraOp Intraoperative Equipment Entry 1 Type Monitoring Equipment Intraop Monitoring Electrocardiogram Three lead placement (ECG) Electrode Placement Blood Pressure Non-Invasive BP Device Source Blood Pressure Arm, right upper Location Pulse Oximeter Hand, left Probe Site Antiembolic Devices Scopes Photo/Video Documentation Photo No Video No Last Modified By: FLOYD BANDA RN 06/01/21 10:58:21 [facility] IntraOp Intraoperative Equipment Audit 06/01/21 11:32:51 Population Health Coach: RESULTJO Modifier: RESULTJO <+> 1 Photo <+> 1 Video [facility] IntraOp Patient Positioning Entry 1 Procedure Leg [...] By STELLA ORTIZ MD-ANNALISE, DANIELLA GOMEZ APRN, LITHOGRAPH DESIGNER, OTHER, ATTENDEE #1, Yamileth Osuna RN, FLOYD BANDA RN Position Verified Positioning Yes Verified by Anesthesia Positioning Yes Verified by Surgeon Last Modified By: FLOYD BANDA RN 06/01/21 11:35:36 [facility] IntraOp Sign In Entry 1 Patient, Site, [...] Modified By: FLOYD BANDA RN 06/01/21 10:58:48 [facility] IntraOp Sign In Audit 06/01/21 11:35:59 Population Health Coach: RESULTJO Modifier: RESULTJO 1 <*> Allergies Yes 1 <*> Warming Measures Taken No [facility] IntraOp Sign Out Entry 1 RN Confirmation [...] Modified By: FLOYD BANDA RN 06/01/21 11:02:04 [facility] IntraOp Sign Out Audit 06/01/21 11:57:16 Population Health Coach: RESULTJO Modifier: RESULTJO <+> 1 RN Sign Out Signature <+> 1 RN Sign Out Signature Date/Time 06/01/21 11:36:30 Population Health Coach: RESULTJO Modifier: RESULTJO 1 <*> OUTCOME STATEMENT: Absence of Goal met observable signs or symptoms of radiation injury [facility] IntraOp Skin Prep Entry 1 Procedure Leg Amputation Above Knee Prescribed N/A Pre-Surgical Prep Completed Prep Area RIGHT LEG CIRCUMFERENTIAL Intraop Prep Prep Agents Chloraprep Prep by FLOYD BANDA RN Hair Removal Methods No hair removal performed Last Modified By: FLOYD BANDA RN 06/01/21 11:02:39 [facility] IntraOp Surgical Procedures Entry 1 Procedure Leg Amputation Above Knee Additional RIGHT ABOVE KNEE Procedure AMPUTATION Description Primary Procedure Yes Primary Surgeon STELLA ORTIZ MD-ANNALISE Start 06/01/21 11:22:00 Stop 06/01/21 11:44:00 Anesthesia Type MAC Specialty General Wound Class III - Contaminated Last Modified By: FLOYD BANDA RN 06/01/21 11:36:51 [facility] IntraOp Surgical Procedures Audit 06/01/21 11:47:52 Population Health Coach: RESULTJO Modifier: RESULTJO <+> 1 Stop 06/01/21 11:36:51 Population Health Coach: RESULTJO Modifier: RESULTJO 1 <*> Procedure Leg Amputation Above Knee 1 <*> Specialty 1 <*> Anesthesia Type General 1 <*> Additional Procedure Description (RIGHT ABOVE KNEE AMPUTATION) 06/01/21 11:35:38 Population Health Coach: RESULTJO Modifier: RESULTJO <+> 1 Start [facility] IntraOP Time Out Entry 1 Procedure to [...] Modified By: FLOYD BANDA RN 06/01/21 11:27:31 [facility] IntraOP Time Out Audit 06/01/21 11:27:31 Population Health Coach: ANDRES Modifier: RESULTJO 1 <*> Venous Thromboembolism [...]
--- OUTSIDE RECORDS SUMMARY | 2025-06-15 10:09 | XMS_ITS | Encounter Summary ---
Author Organization [employer] ([place], [place], [place], [place]) Address [address] [place] [address] Care Team Providers Care Field Artillery Crewmember Name Role Phone Unavailable Primary Care Provider Unavailabl e Encounter Details Date Type Department Care Team (Late st Contact Info) Description 06/04/[address] [facility] [place] Family Medicine [facility] [place] [address] ProviderElyssa MD [facility] [place] [address] Social History Tobacco Use Types [...] Evaluation and Treatment Ordered By: SRI HAYES MD-[employer] Active Diagnoses : 06/01/2021 12:00 Atherosclerosis of [place] arteries of extremities with rest pain, unspecified [...] ERICCLARE Claudia OTR/L - 06/05/2021 13:00 EDT Custodial Goals, OT Self Feeding LTG Grid Goal [...] Pain scale Pain Score Pre-Intervention : 0 CLAER REYES OTR/L - 06/05/2021 13:00 EDT Image 1 - Images currently included in the form version of this document have not been included in the text rendition version of the form. Anticipated Discharge Needs, OT/PT Anticipated Discharge to : Unit, jail CLARE REYES OTR/L - 06/05/2021 13:00 EDT [facility] OT Charges OT Eval Low Complexity : 1 CLARE REYES OTR/L - 06/05/2021 13:00 EDT documented in this encounter Plan of Treatment Not on file documented as of this encounter Visit Diagnoses Not on filedocumented in this encounter
--- OUTSIDE RECORDS SUMMARY | 2025-06-15 10:09 | XMS_ITS | Encounter Summary ---
Author Organization [employer] ([place], [place], [place], [place]) Address [address] [place] [address] Care Team Providers Care Family Psychologist Name Role Phone Unavailable Primary Care Provider Unavailabl e Encounter Details Date Type Department Care Team (Late st Contact Info) Description 06/04/2021 Transcribed Document [facility] [place] Family Medicine [facility] [place] [address] ProviderElyssa MD [facility] [place] [address] Social History Tobacco Use Types [...] Evaluation and Treatment Ordered By: SRI HAYES MD-[facility] Active Diagnoses : 06/01/2021 12:00 Atherosclerosis of [place] arteries of extremities with rest pain, unspecified [...] History and Environment Living Situation, Therapy : Group Home unit/facility Patient Lives With : Caregiver(s) Persons [...] PHYSICAL THERAPIST NON-EXEMPT - 06/05/2021 12:46 EDT Assistant Store Manager Goals Mobility/Bed Mobility LTG PT Grid Goal [...] OT/PT Anticipated Discharge to : Unit, jail Anticipated Home Equipment : Other: power wheel chair Recommend Continued Therapy at Discharge : Yes [place] PHYSICAL THERAPIST NON-EXEMPT - 06/05/2021 12:[address] [facility] PT Charges PT Eval Low Complexity : 1 [place] PHYSICAL THERAPIST NON-EXEMPT - 06/05/2021 12:46 EDT documented in this encounter Plan of Treatment Not on file documented as of this encounter Visit Diagnoses Not on filedocumented in this encounter
--- OUTSIDE RECORDS SUMMARY | 2025-06-15 10:09 | XMS_ITS | Encounter Summary ---
Author Organization [employer] ([place], [place], [place], [place]) Address [address] [place] [address] Care Team Providers Care Assistant Prosecuting Attorney Name Role Phone Unavailable Primary Care Provider Nanette glass Encounter Details Date Type Department Care Team (Late st Contact Info) Description 06/05/2021 Transcribed Document [facility] [place] [address] [place] [address] ProviderElyssa MD [address] [place] [address] Social History Tobacco Use Types [...] Zaynab Morataya RN - 06/05/2021 5:20 EDT Electronically signed by Christoph [facility] Conversion Roller Embosser Cerner at 01/18/2023 12:27 PM CDT documented in this encounter Plan of Treatment Not on file documented as of this encounter Visit Diagnoses Not on filedocumented in this encounter
--- OUTSIDE RECORDS SUMMARY | 2025-06-15 10:09 | XMS_ITS | Encounter Summary ---
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 Overactive bladder / SNOMED CT 2905990457 / Confirmed Multiple sclerosis / SNOMED CT 41573346 / Confirmed 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 Migraine / SNOMED CT 20924634 / Confirmed Hyperthyroidism / SNOMED CT 96366498 / Confirmed HTN (hypertension) / SNOMED CT 6452889699 / Confirmed HLD (hyperlipidemia) / SNOMED CT 98936794 / Confirmed Hemiplegia / SNOMED CT 31236158 / Confirmed Graves disease / SNOMED CT 555721156 / Confirmed Depression / SNOMED CT 21565877 / Confirmed Hormone deficiency / SNOMED CT 710008274 / Confirmed COVID-19 / SNOMED CT 9857971891 / Confirmed Constipation / SNOMED CT 65836644 / Confirmed CVA (cerebral vascular accident) / SNOMED CT 365256840 / Confirmed Allergic rhinitis / SNOMED CT 860646999 / Confirmed, Active Problems (17) Allergic rhinitis [...]
--- OUTSIDE RECORDS SUMMARY | 2025-06-15 10:09 | XMS_ITS | Encounter Summary ---
Author Organization [employer] ([place], [place], [place], [place]) Address [address] [place] [address] Care Team Providers Care Camera Supervisor Name Role Phone Unavailable Primary Care Provider Unavailabl e Encounter Details Date Type Department Care Team (Late st Contact Info) Description 06/06/2021 Transcribed Document [facility] [place] Family Medicine [address] [place] [address] ProviderElyssa MD [address] [place] [address] Social History Tobacco Use Types [...]
--- OUTSIDE RECORDS SUMMARY | 2025-06-15 10:09 | XMS_ITS | Encounter Summary ---
Author Organization [employer] ([place], [place], [place], [place]) Address [address] [place] [address] Care Team Providers Care Mophead Trimmer And Wrapper Name Role Phone Unavailable Primary Care Provider Nanette glass Encounter Details Date Type Department Care Team (Late st Contact Info) Description 06/06/[address] [facility] [place] Family Medicine [facility] [place] [address] ProviderElyssa MD [facility] [place] [address] Social History Tobacco Use Types [...] Historical ProviderMD - 06/06/2021 2:00 AM CDT Computer Applications Instructor Details Entered On: 06/06/2021 2:04 EDT Performed [...] 06/06/2021 2:04 EDT Electronically signed by Christoph [facility] Conversion Postbed Stitcher Cerner at 01/18/2023 12:41 PM CDT documented in this encounter Plan of Treatment Not on file documented as of this encounter Visit Diagnoses Not on filedocumented in this encounter
== END 2025-06-15 10:03 ==
LOC: ER 09:37
PROVIDERS: Emergency Provider Student in an Organized Health Care Education/Training Program; PCP Internal Medicine Adolescent Medicine
DX: R40.4 Transient alteration of awareness (principal); G35 Multiple sclerosis; I10 Essential (primary) hypertension; Z86.73 Personal history of transient ischemic attack (TIA), and cerebral infarction without residual deficits
CPT/HCPCS: 99282